=== PATIENT | female | born 1940 | race Caucasian/White ===

== ENCOUNTER 2017-07-11 02:01 | Inpatient (IN) | payer MEDICARE, OTHER ==
[~2017-07-11] VITALS: Ht 160 cm; Wt 77.3 kg
[~2017-07-11 02:01] MED LIST: ASPI81TA52 PO; LEVO150T PO; METO25TA6 PO; PRED5TAB PO
[2017-07-11 02:56] LABS: INR 0.9 INR; PARTIAL THROMBOPLASTIN TIME 24 SECONDS (22-32); PROTHROMBIN TIME 9.8 SECONDS (9.0-12.0)
[2017-07-11 03:02] LABS: BASOPHILS % (AUTO) 0.6 % (0-1); EOSINOPHILS # (AUTO) 0.1 X10'3 (0-0.9); EOSINOPHILS % (AUTO) 1.5 % (0-6); HEMATOCRIT 28.5 % (35.0-45.0); HEMOGLOBIN 9.5 g/dl (12.0-16.0); LYMPHOCYTES # (AUTO) 1.7 X10'3 (1.1-4.8); LYMPHOCYTES % (AUTO) 25.9 % (21-51); MEAN CORPUSCULAR HEMOGLOBIN 31.6 PG (27.0-31.0); MEAN CORPUSCULAR HGB CONC 33.5 % (33.0-36.5); MEAN CORPUSCULAR VOLUME 94.3 FL (78-98); MEAN PLATELET VOLUME 7.1 FL (7.4-10.4); MONOCYTES # (AUTO) 0.5 X10'3 (0-0.9); NEUTROPHILS # (AUTO) 4.2 X10'3 (1.8-7.7); PLATELET COUNT 247 X10'3 (140-440); RED BLOOD COUNT 3.02 X10'6 (4.20-5.60); RED CELL DISTRIBUTION WIDTH 15.4 % (11.5-14.5); WHITE BLOOD COUNT 6.5 X10'3 (4.5-11.0)
[2017-07-11 03:04] LABS: ALANINE AMINOTRANSFERASE 21 U/L (12-78); ALBUMIN 3.5 G/DL (3.4-5.0); ALBUMIN/GLOBULIN RATIO 0.9 (1.1-1.5); ALKALINE PHOSPHATASE 95 IU/L (46-116); ANION GAP 13 (8-16); ASPARTATE AMINO TRANSFERASE 21 U/L (10-37); BILIRUBIN,TOTAL 0.2 MG/DL (0.1-1.0); BLOOD UREA NITROGEN 61 MG/DL (7-18); BUN/CREATININE RATIO 21.6 (6.6-38.0); CALCIUM 9.4 MG/DL (8.5-10.1); CHLORIDE 103 MMOL/L (99-107); CREATININE 2.82 MG/DL (0.40-0.90); GLUCOSE 106 MG/DL (70-104); POTASSIUM 5.3 MMOL/L (3.5-5.1); SODIUM 135 MMOL/L (135-145); TOTAL CARBON DIOXIDE 18.9 MMOL/L (24-32); TOTAL PROTEIN 7.5 G/DL (6.4-8.2); eGFR 16 ML/MIN
[2017-07-11] MEDS ORDERED: insulin regular, human 10 units/0.1 ml syringe IV ONE (03:20)
[2017-07-11] MEDS ORDERED: dextrose 50%-water 50ml dispensing syringe IV ONE (03:20)
[2017-07-11] MEDS ORDERED: sodium polystyrene sulfonate 15gm/60ml oral suspension PO ONE (03:20)
[2017-07-11] MEDS ORDERED: aspirin 81mg tab.chew PO ONE (10:10)
[2017-07-11] MEDS ORDERED: nitroGLYCERIN 0.4mg SUBLingual tab SL PRN ×3 (10:10→17:20)
[2017-07-11] MEDS ORDERED: heparin 10,000 units/1 ML INJ IV PRN (10:55)
[2017-07-11] MEDS ORDERED: ondansetron/PF 4mg/2ml inj IV PRN (10:55)
[2017-07-11] MEDS ORDERED: heparin 10,000 units/1 ML INJ IV ONE (10:55)
[2017-07-11] MEDS ORDERED: mag hydrox/Alum hydrox/simeth 30ml oral suspension PO PRN (10:55)
[2017-07-11] MEDS ORDERED: HYDROcodone/acetaminophen 10/325mg tab PO PRN (10:55)
[2017-07-11] MEDS ORDERED: magnesium hydroxide 30ml (MOM) UD suspension PO PRN (10:55)
[2017-07-11] MEDS ORDERED: acetaminophen 325mg tablet PO PRN ×2 (10:55)
[2017-07-11] MEDS ORDERED: HYDROcodone/acetaminophen 5mg/325mg tablet PO PRN (10:55)
[2017-07-11] MEDS: normal saline 1000ml 1,000 ML IV SCH ×2 (12:01→21:12)
[2017-07-11 13:11] LABS: CHOL/HDL RATIO 3.3 (0.00-4.99); CHOLESTEROL 269 MG/DL (0-200); HDL CHOLESTEROL 81 MG/DL (35-60); LDL CHOLESTEROL 147 MG/DL (50-100); TRIGLYCERIDES 168 MG/DL (20-135)
[2017-07-11] MEDS: atorvastatin 20mg tablet PO SCH (14:06)
[2017-07-11] MEDS: isosorbide mononitrate 30mg tab.SR.24H PO SCH (14:20)
[2017-07-11] MEDS ORDERED: ATOR-2 PO (14:55)
[2017-07-11] MEDS ORDERED: metoprolol tartrate 1mg/ml inj IV PRN (17:20)
[2017-07-11] MEDS ORDERED: regadenoson 0.4mg/5ml syringe IV ONE (17:20)
[2017-07-11] MEDS ORDERED: aminophylline 250mg/10ml inj. IV PRN (17:20)
[2017-07-11] MEDS ORDERED: acetaminophen 325mg tablet PO ONE (17:20)
[2017-07-11] MEDS ORDERED: regadenoson 0.4mg/5ml syringe IV PRN (17:25)
[2017-07-11 18:55] LABS: PARTIAL THROMBOPLASTIN TIME 53 SECONDS (22-32)
[2017-07-11] MEDS ORDERED: temazepam 15mg capsule PO PRN (21:00)
[2017-07-11] MEDS: metoprolol tartrate 25mg tablet PO SCH (21:11)
[2017-07-11] MEDS ORDERED: zolpidem 5mg tablet PO ONE (22:10)
[2017-07-12 03:53] VITALS: BP 145/74
[2017-07-12 06:00] VITALS: BP 129/62
[2017-07-12] MEDS ORDERED: regadenoson 0.4mg/5ml syringe IV PRN (07:00)
[2017-07-12] MEDS: aspirin 81mg tablet.DR PO SCH (07:50)
[2017-07-12] MEDS: isosorbide mononitrate 30mg tab.SR.24H PO SCH (07:50)
[2017-07-12] MEDS: levoTHYROXINE 75mcg tablet PO SCH (07:50)
[2017-07-12] MEDS: predniSONE 5mg tablet PO SCH (07:50)
[2017-07-12] MEDS: metoprolol tartrate 25mg tablet PO SCH ×2 (07:50→20:36)
[2017-07-12] MEDS: normal saline 1000ml 1,000 ML IV SCH ×3 (07:51→20:31)
[2017-07-12] MEDS: atorvastatin 20mg tablet PO SCH (08:00)
[2017-07-12] MEDS ORDERED: aspirin 81mg tablet.DR PO SCH (08:00)
[2017-07-12] MEDS ORDERED: atorvastatin 20mg tablet PO SCH (08:28)
[2017-07-12 09:09] LABS: BASOPHILS % (AUTO) 0.6 % (0-1); EOSINOPHILS # (AUTO) 0.3 X10'3 (0-0.9); EOSINOPHILS % (AUTO) 5.9 % (0-6); HEMATOCRIT 22.7 % (35.0-45.0); HEMOGLOBIN 7.7 g/dl (12.0-16.0); LYMPHOCYTES # (AUTO) 1.1 X10'3 (1.1-4.8); LYMPHOCYTES % (AUTO) 19.6 % (21-51); MEAN CORPUSCULAR HEMOGLOBIN 31.6 PG (27.0-31.0); MEAN CORPUSCULAR HGB CONC 33.7 % (33.0-36.5); MEAN CORPUSCULAR VOLUME 93.7 FL (78-98); MEAN PLATELET VOLUME 6.7 FL (7.4-10.4); MONOCYTES # (AUTO) 0.5 X10'3 (0-0.9); MONOCYTES % (AUTO) 8.6 % (2-12); NEUTROPHILS # (AUTO) 3.5 X10'3 (1.8-7.7); NEUTROPHILS % (AUTO) 65.3 % (42-75); PLATELET COUNT 202 X10'3 (140-440); RED BLOOD COUNT 2.43 X10'6 (4.20-5.60); RED CELL DISTRIBUTION WIDTH 15.6 % (11.5-14.5); WHITE BLOOD COUNT 5.4 X10'3 (4.5-11.0)
[2017-07-12 09:29] LABS: ALBUMIN 2.6 G/DL (3.4-5.0); ANION GAP 10 (8-16); BLOOD UREA NITROGEN 51 MG/DL (7-18); BUN/CREATININE RATIO 18.4 (6.6-38.0); CALCIUM 8.1 MG/DL (8.5-10.1); CHLORIDE 110 MMOL/L (99-107); CREATININE 2.77 MG/DL (0.40-0.90); GLUCOSE 117 MG/DL (70-104); POTASSIUM 4.5 MMOL/L (3.5-5.1); SODIUM 139 MMOL/L (135-145); TOTAL CARBON DIOXIDE 19.2 MMOL/L (24-32); TROPONIN I 0.13 NG/ML (0.0-0.05); eGFR 17 ML/MIN
[2017-07-12 11:00] VITALS: BP 136/77
[2017-07-12 15:00] VITALS: BP 153/78
[2017-07-12 18:00] VITALS: BP 175/89
[2017-07-12 22:00] VITALS: BP 165/83
[2017-07-12 22:04] LABS: OCCULT BLOOD STOOL NEGATIVE (Neg)
[2017-07-13] MEDS ORDERED: zolpidem 5mg tablet PO PRN (01:40)
[2017-07-13 06:00] VITALS: BP 158/79
[2017-07-13 06:39] LABS: BASOPHILS % (AUTO) 0.4 % (0-1); EOSINOPHILS # (AUTO) 0.2 X10'3 (0-0.9); EOSINOPHILS % (AUTO) 3.7 % (0-6); HEMATOCRIT 23.2 % (35.0-45.0); HEMOGLOBIN 7.9 g/dl (12.0-16.0); LYMPHOCYTES # (AUTO) 1.2 X10'3 (1.1-4.8); LYMPHOCYTES % (AUTO) 22.1 % (21-51); MEAN CORPUSCULAR HEMOGLOBIN 32.3 PG (27.0-31.0); MEAN CORPUSCULAR VOLUME 95.1 FL (78-98); MONOCYTES # (AUTO) 0.7 X10'3 (0-0.9); MONOCYTES % (AUTO) 11.6 % (2-12); NEUTROPHILS # (AUTO) 3.5 X10'3 (1.8-7.7); NEUTROPHILS % (AUTO) 62.2 % (42-75); PLATELET COUNT 193 X10'3 (140-440); RED BLOOD COUNT 2.44 X10'6 (4.20-5.60); RED CELL DISTRIBUTION WIDTH 15.3 % (11.5-14.5); WHITE BLOOD COUNT 5.6 X10'3 (4.5-11.0)
[2017-07-13 06:51] LABS: ALBUMIN 2.6 G/DL (3.4-5.0); ANION GAP 9 (8-16); BLOOD UREA NITROGEN 48 MG/DL (7-18); BUN/CREATININE RATIO 19.2 (6.6-38.0); CALCIUM 8.5 MG/DL (8.5-10.1); CHLORIDE 112 MMOL/L (99-107); GLUCOSE 77 MG/DL (70-104); POTASSIUM 4.8 MMOL/L (3.5-5.1); SODIUM 140 MMOL/L (135-145); TOTAL CARBON DIOXIDE 18.8 MMOL/L (24-32); eGFR 19 ML/MIN
[2017-07-13] MEDS: aspirin 81mg tablet.DR PO SCH (08:41)
[2017-07-13] MEDS: isosorbide mononitrate 30mg tab.SR.24H PO SCH (08:42)
[2017-07-13] MEDS: metoprolol tartrate 25mg tablet PO SCH (08:42)
[2017-07-13] MEDS: predniSONE 5mg tablet PO SCH (08:42)
[2017-07-13] MEDS: levoTHYROXINE 75mcg tablet PO SCH (08:49)
[2017-07-13 11:00] VITALS: BP 130/74
[2017-07-13] MEDS: normal saline 1000ml 1,000 ML IV SCH (13:32)
== END 2017-07-13 15:41 | disposition home or self-care (01) | DRG 303 ==
LOC: ER 02:02 → ED HOLD 10:55 → EDBEDREQ 07-12 02:37 → PCU 3S 07-12 03:10
PROVIDERS: ADMIT Hospitalist; ATTEND Family Medicine
DX: I25.119 Atherosclerotic heart disease of native coronary artery with unspecified angina pectoris (principal); N17.9 Acute kidney failure, unspecified; M32.9 Systemic lupus erythematosus, unspecified; D64.9 Anemia, unspecified; E03.9 Hypothyroidism, unspecified; N18.9 Chronic kidney disease, unspecified; E78.5 Hyperlipidemia, unspecified; I12.9 Hypertensive chronic kidney disease with stage 1 through stage 4 chronic kidney disease, or unspecified chronic kidney disease; I71.4 Abdominal aortic aneurysm, without rupture; I25.2 Old myocardial infarction; Z90.5 Acquired absence of kidney; Z90.710 Acquired absence of both cervix and uterus; Z95.5 Presence of coronary angioplasty implant and graft; Z98.41 Cataract extraction status, right eye; Z98.42 Cataract extraction status, left eye; Z88.0 Allergy status to penicillin; Z88.2 Allergy status to sulfonamides; Z88.5 Allergy status to narcotic agent; Z91.041 Radiographic dye allergy status; Z88.8 Allergy status to other drugs, medicaments and biological substances; Z79.82 Long term (current) use of aspirin; Z79.899 Other long term (current) drug therapy; Z85.51 Personal history of malignant neoplasm of bladder; Z86.79 Personal history of other diseases of the circulatory system; Z87.891 Personal history of nicotine dependence; Z80.8 Family history of malignant neoplasm of other organs or systems; Z82.49 Family history of ischemic heart disease and other diseases of the circulatory system
CPT/HCPCS: 36415; 71045; 74176; 80048; 80053; 80061; 82272; 84484; 85025; 85610; 85730; 87070; 93005; 93306; 96361; 96374; 99285; A4357; A6212; J0280; J1644; J1815; J2785; J7030; J7512

== ENCOUNTER 2017-10-31 19:02 | Inpatient (IN) | payer MEDICARE, OTHER ==
[~2017-10-31] VITALS: Ht 160 cm; Wt 77.3 kg
[~2017-10-31 19:02] MED LIST changes: -ASPI81TA52 PO; +ATOR-2 PO; -PRED5TAB PO
[2017-10-31] MEDS ORDERED: aspirin 81mg tab.chew PO ONE (19:35)
[2017-10-31 19:52] LABS: BASOPHILS % (AUTO) 0.4 % (0-1); EOSINOPHILS % (AUTO) 0.4 % (0-6); HEMATOCRIT 27.8 % (35.0-45.0); HEMOGLOBIN 9.6 g/dl (12.0-16.0); LYMPHOCYTES # (AUTO) 0.9 X10'3 (1.1-4.8); MEAN CORPUSCULAR HEMOGLOBIN 32.2 PG (27.0-31.0); MEAN CORPUSCULAR HGB CONC 34.5 % (33.0-36.5); MEAN CORPUSCULAR VOLUME 93.4 FL (78-98); MEAN PLATELET VOLUME 6.7 FL (7.4-10.4); MONOCYTES # (AUTO) 0.4 X10'3 (0-0.9); MONOCYTES % (AUTO) 4.5 % (2-12); NEUTROPHILS % (AUTO) 83.7 % (42-75); PLATELET COUNT 216 X10'3 (140-440); RED BLOOD COUNT 2.98 X10'6 (4.20-5.60); WHITE BLOOD COUNT 8.4 X10'3 (4.5-11.0)
[2017-10-31 20:02] LABS: PARTIAL THROMBOPLASTIN TIME 23 SECONDS (22-32); PROTHROMBIN TIME 9.9 SECONDS (9.0-12.0)
[2017-10-31 20:10] LABS: ALANINE AMINOTRANSFERASE 26 U/L (12-78); ALBUMIN 3.3 G/DL (3.4-5.0); ALBUMIN/GLOBULIN RATIO 0.8 (1.1-1.5); ALKALINE PHOSPHATASE 80 IU/L (46-116); ANION GAP 13 (8-16); ASPARTATE AMINO TRANSFERASE 13 U/L (10-37); BILIRUBIN,TOTAL 0.3 MG/DL (0.1-1.0); BLOOD UREA NITROGEN 56 MG/DL (7-18); BUN/CREATININE RATIO 21.1 (6.6-38.0); CALCIUM 9.2 MG/DL (8.5-10.1); CHLORIDE 103 MMOL/L (99-107); CREATININE 2.66 MG/DL (0.40-0.90); GLUCOSE 129 MG/DL (70-104); POTASSIUM 5.2 MMOL/L (3.5-5.1); SODIUM 134 MMOL/L (135-145); TOTAL CARBON DIOXIDE 18.1 MMOL/L (24-32); TOTAL PROTEIN 7.2 G/DL (6.4-8.2); eGFR 17 ML/MIN
[2017-10-31] MEDS ORDERED: ondansetron/PF 4mg/2ml inj IV PRN (21:40)
[2017-10-31] MEDS ORDERED: mag hydrox/Alum hydrox/simeth 30ml oral suspension PO PRN (21:40)
[2017-10-31] MEDS ORDERED: magnesium hydroxide 30ml (MOM) UD suspension PO PRN (21:40)
[2017-10-31] MEDS ORDERED: PRED5TAB PO (21:54)
[2017-10-31] MEDS ORDERED: CALC-1197 PO (21:54)
[2017-10-31] MEDS ORDERED: IRON18TA PO (21:54)
[2017-10-31] MEDS ORDERED: ATOR80TA PO (21:54)
[2017-10-31] MEDS ORDERED: ASPI-1071 PO (21:54)
[2017-10-31] MEDS ORDERED: predniSONE 5mg tablet PO SCH (22:00)
[2017-10-31 23:45] VITALS: BP 179/91
[2017-11-01] MEDS ORDERED: ranolazine 500mg SR tablet (Q12H) PO ONE
[2017-11-01] MEDS ORDERED: metoprolol succinate 25mg (24-HOUR) SR. Tablet PO ONE
[2017-11-01 02:11] LABS: BASOPHILS % (AUTO) 0.3 % (0-1); EOSINOPHILS # (AUTO) 0.2 X10'3 (0-0.9); EOSINOPHILS % (AUTO) 2.4 % (0-6); HEMATOCRIT 24.5 % (35.0-45.0); HEMOGLOBIN 8.4 g/dl (12.0-16.0); LYMPHOCYTES # (AUTO) 1.4 X10'3 (1.1-4.8); LYMPHOCYTES % (AUTO) 18.8 % (21-51); MEAN CORPUSCULAR HEMOGLOBIN 32.5 PG (27.0-31.0); MEAN CORPUSCULAR HGB CONC 34.1 % (33.0-36.5); MEAN CORPUSCULAR VOLUME 95.3 FL (78-98); MEAN PLATELET VOLUME 6.9 FL (7.4-10.4); MONOCYTES # (AUTO) 0.6 X10'3 (0-0.9); MONOCYTES % (AUTO) 8.5 % (2-12); NEUTROPHILS # (AUTO) 5.1 X10'3 (1.8-7.7); PLATELET COUNT 205 X10'3 (140-440); RED BLOOD COUNT 2.57 X10'6 (4.20-5.60); RED CELL DISTRIBUTION WIDTH 13.8 % (11.5-14.5); WHITE BLOOD COUNT 7.3 X10'3 (4.5-11.0)
[2017-11-01 02:13] LABS: ALANINE AMINOTRANSFERASE 18 U/L (12-78); ALBUMIN 2.8 G/DL (3.4-5.0); ALBUMIN/GLOBULIN RATIO 0.8 (1.1-1.5); ALKALINE PHOSPHATASE 69 IU/L (46-116); ANION GAP 12 (8-16); ASPARTATE AMINO TRANSFERASE 15 U/L (10-37); BILIRUBIN,TOTAL 0.2 MG/DL (0.1-1.0); BLOOD UREA NITROGEN 60 MG/DL (7-18); BUN/CREATININE RATIO 23.2 (6.6-38.0); CALCIUM 8.3 MG/DL (8.5-10.1); CHLORIDE 105 MMOL/L (99-107); CREATININE 2.59 MG/DL (0.40-0.90); GLUCOSE 90 MG/DL (70-104); POTASSIUM 4.8 MMOL/L (3.5-5.1); SODIUM 134 MMOL/L (135-145); TOTAL CARBON DIOXIDE 17.3 MMOL/L (24-32); TOTAL PROTEIN 6.3 G/DL (6.4-8.2); eGFR 18 ML/MIN
[2017-11-01 02:28] VITALS: BP 142/78
[2017-11-01 07:00] VITALS: BP 158/81
[2017-11-01] MEDS: heparin, porcine 5000 units/ml vial SQ SCH ×2 (07:36→19:42)
[2017-11-01] MEDS: ranolazine 500mg SR tablet (Q12H) PO SCH ×2 (07:36→19:42)
[2017-11-01] MEDS: ferrous sulfate 325mg tablet PO SCH (07:37)
[2017-11-01] MEDS: atorvastatin 20mg tablet PO SCH (07:38)
[2017-11-01] MEDS: aspirin 81mg tablet.DR PO SCH (07:38)
[2017-11-01] MEDS: predniSONE 5mg tablet PO SCH (07:39)
[2017-11-01] MEDS: levoTHYROXINE 75mcg tablet PO SCH (07:40)
[2017-11-01] MEDS ORDERED: non-formulary drug (Calcium Carbonate/Vitamin D3 (Calcium + D 600 Mg Tablet) 1 EACH) PO SCH (08:00)
[2017-11-01] MEDS ORDERED: metoprolol tartrate 25mg tablet PO SCH ×2 (08:00→20:00)
[2017-11-01] MEDS ORDERED: metoprolol tartrate 12.5mg (1/2 tablet) PO ONE (09:15)
[2017-11-01] MEDS: isosorbide mononitrate 30mg tab.SR.24H PO SCH (10:04)
[2017-11-01 11:00] VITALS: BP 109/55
[2017-11-01] MEDS: normal saline 1000ml 1,000 ML IV SCH (11:53)
[2017-11-01 15:00] VITALS: BP 111/58
[2017-11-01 18:00] VITALS: BP 128/61
[2017-11-01] MEDS: acetaminophen 325mg tablet PO PRN (19:49)
[2017-11-01 22:00] VITALS: BP 106/49
[2017-11-02] MEDS: normal saline 1000ml 1,000 ML IV SCH ×2 (01:55→15:39)
[2017-11-02 02:00] VITALS: BP 122/65
[2017-11-02 02:19] LABS: ALANINE AMINOTRANSFERASE 21 U/L (12-78); ALBUMIN 2.6 G/DL (3.4-5.0); ALBUMIN/GLOBULIN RATIO 0.8 (1.1-1.5); ALKALINE PHOSPHATASE 68 IU/L (46-116); ANION GAP 12 (8-16); ASPARTATE AMINO TRANSFERASE 14 U/L (10-37); BILIRUBIN,TOTAL 0.2 MG/DL (0.1-1.0); BLOOD UREA NITROGEN 64 MG/DL (7-18); BUN/CREATININE RATIO 20.4 (6.6-38.0); CALCIUM 8.5 MG/DL (8.5-10.1); CHLORIDE 106 MMOL/L (99-107); CREATININE 3.13 MG/DL (0.40-0.90); GLUCOSE 97 MG/DL (70-104); POTASSIUM 5.6 MMOL/L (3.5-5.1); SODIUM 135 MMOL/L (135-145); TOTAL CARBON DIOXIDE 16.8 MMOL/L (24-32); TOTAL PROTEIN 5.8 G/DL (6.4-8.2); eGFR 14 ML/MIN
[2017-11-02 02:21] LABS: TROPONIN I 0.75 NG/ML (0.0-0.05)
[2017-11-02] MEDS: acetaminophen 325mg tablet PO PRN ×4 (02:26→21:57)
[2017-11-02 06:00] VITALS: BP 162/76
[2017-11-02] MEDS ORDERED: nitroGLYCERIN 0.4mg SUBLingual tab SL ONE (06:59)
[2017-11-02] MEDS: levoTHYROXINE 75mcg tablet PO SCH (07:37)
[2017-11-02] MEDS: aspirin 81mg tablet.DR PO SCH (07:37)
[2017-11-02] MEDS: ferrous sulfate 325mg tablet PO SCH (07:37)
[2017-11-02] MEDS: ranolazine 500mg SR tablet (Q12H) PO SCH ×2 (07:37→20:04)
[2017-11-02] MEDS: metoprolol tartrate 12.5mg (1/2 tablet) PO SCH ×2 (07:37→20:04)
[2017-11-02] MEDS: isosorbide mononitrate 30mg tab.SR.24H PO SCH (07:38)
[2017-11-02] MEDS: predniSONE 5mg tablet PO SCH (07:38)
[2017-11-02] MEDS: atorvastatin 20mg tablet PO SCH (07:38)
[2017-11-02] MEDS: heparin, porcine 5000 units/ml vial SQ SCH ×2 (07:39→20:04)
[2017-11-02] MEDS ORDERED: sodium bicarbonate (8.4%) 1 mEq/ml syringe IV ONE (09:25)
[2017-11-02] MEDS ORDERED: sodium polystyrene sulfonate 15gm/60ml oral suspension PO ONE (09:25)
[2017-11-02] MEDS ORDERED: SODIUM BICARBONATE IV ONE (09:35)
[2017-11-02] MEDS ORDERED: DEXTROSE 5% IV ONE (09:35)
[2017-11-02] MEDS ORDERED: WATER IV ONE (09:35)
[2017-11-02 11:00] VITALS: BP 114/57
[2017-11-02 15:00] VITALS: BP 117/58
[2017-11-02 18:00] VITALS: BP 159/73
[2017-11-02 22:00] VITALS: BP 135/59
[2017-11-03] VITALS (14 sets, daily range): BP systolic 149–178; BP diastolic 75–95
[2017-11-03] MEDS: nitroGLYCERIN 0.4mg SUBLingual tab SL PRN ×4 (00:26→02:17)
[2017-11-03] MEDS: normal saline 1000ml 1,000 ML IV SCH (02:01)
[2017-11-03] MEDS ORDERED: nitroGLYCERIN 0.4mg/hour patch TD SCH (03:00)
[2017-11-03 07:10] LABS: ALANINE AMINOTRANSFERASE 20 U/L (12-78); ALBUMIN 2.7 G/DL (3.4-5.0); ALBUMIN/GLOBULIN RATIO 0.8 (1.1-1.5); ALKALINE PHOSPHATASE 59 IU/L (46-116); ANION GAP 11 (8-16); ASPARTATE AMINO TRANSFERASE 13 U/L (10-37); BILIRUBIN,TOTAL 0.3 MG/DL (0.1-1.0); BLOOD UREA NITROGEN 52 MG/DL (7-18); BUN/CREATININE RATIO 16.9 (6.6-38.0); CALCIUM 8.4 MG/DL (8.5-10.1); CHLORIDE 110 MMOL/L (99-107); CREATININE 3.07 MG/DL (0.40-0.90); GLUCOSE 76 MG/DL (70-104); POTASSIUM 5.3 MMOL/L (3.5-5.1); SODIUM 138 MMOL/L (135-145); TOTAL CARBON DIOXIDE 17.2 MMOL/L (24-32); TOTAL PROTEIN 5.9 G/DL (6.4-8.2); eGFR 15 ML/MIN
[2017-11-03] MEDS: ranolazine 500mg SR tablet (Q12H) PO SCH ×2 (07:36→19:16)
[2017-11-03] MEDS: predniSONE 5mg tablet PO SCH (07:36)
[2017-11-03] MEDS: aspirin 81mg tablet.DR PO SCH (07:36)
[2017-11-03] MEDS: isosorbide mononitrate 30mg tab.SR.24H PO SCH (07:36)
[2017-11-03] MEDS: atorvastatin 20mg tablet PO SCH (07:37)
[2017-11-03] MEDS: ferrous sulfate 325mg tablet PO SCH (07:37)
[2017-11-03] MEDS: metoprolol tartrate 12.5mg (1/2 tablet) PO SCH (07:37)
[2017-11-03] MEDS: heparin, porcine 5000 units/ml vial SQ SCH (07:38)
[2017-11-03] MEDS: acetaminophen 325mg tablet PO PRN ×3 (07:44→22:36)
[2017-11-03] MEDS ORDERED: sodium bicarbonate (8.4%) 1 mEq/ml syringe IV STA (07:58)
[2017-11-03] MEDS ORDERED: sodium polystyrene sulfonate 15gm/60ml oral suspension PO ONE (08:00)
[2017-11-03] MEDS ORDERED: WATER IV ONE (08:10)
[2017-11-03] MEDS ORDERED: SODIUM BICARBONATE IV ONE (08:10)
[2017-11-03] MEDS ORDERED: DEXTROSE 5% IV ONE (08:10)
[2017-11-03 09:27] LABS: BASOPHILS # (AUTO) 0.1 X10'3 (0-0.2); BASOPHILS % (AUTO) 1.5 % (0-1); EOSINOPHILS # (AUTO) 0.2 X10'3 (0-0.9); EOSINOPHILS % (AUTO) 3.4 % (0-6); HEMATOCRIT 23.8 % (35.0-45.0); LYMPHOCYTES # (AUTO) 1.5 X10'3 (1.1-4.8); LYMPHOCYTES % (AUTO) 21.1 % (21-51); MEAN CORPUSCULAR HEMOGLOBIN 32.8 PG (27.0-31.0); MEAN CORPUSCULAR HGB CONC 33.8 % (33.0-36.5); MEAN PLATELET VOLUME 7.3 FL (7.4-10.4); MONOCYTES # (AUTO) 0.6 X10'3 (0-0.9); NEUTROPHILS # (AUTO) 4.6 X10'3 (1.8-7.7); PLATELET COUNT 189 X10'3 (140-440); RED BLOOD COUNT 2.45 X10'6 (4.20-5.60); RED CELL DISTRIBUTION WIDTH 13.9 % (11.5-14.5)
[2017-11-03] MEDS ORDERED: acetaminophen 325mg tablet PO ONE (10:15)
[2017-11-03] MEDS ORDERED: diphenhydrAMINE 25mg capsule PO ONE (10:15)
[2017-11-03] MEDS ORDERED: epoetin 20,000 units/ml inj SQ ONE (11:10)
[2017-11-03] MEDS: amLODIPine 5mg tablet PO SCH (12:10)
[2017-11-03] MEDS: pantoprazole 40mg Tablet.DR PO SCH (12:10)
[2017-11-03] MEDS ORDERED: furosemide 40mg/4ml inj IV ONE (12:15)
[2017-11-03 12:20] LABS: CLARITY,URINE TURBID (Clear); COLOR,URINE STRAW (Yellow); GLUCOSE, URINE NEGATIVE (Neg); KETONES,URINE NEGATIVE (Neg); LEUKOCYTE ESTERASE ,URINE LARGE (Neg); NITRITES, URINE POSITIVE (Neg); OCCULT BLOOD,URINE MODERATE (Neg); PROTEIN,URINE 30 mg/dl (Neg); UA COLLECTION TYPE OTHER; UROBILINOGEN,URINE 0.2 E.U/dL (0.2-1.0)
[2017-11-03 12:29] LABS: BACTERIA,URINE 3+ /HPF (Neg); MUCUS STRANDS NONE SEEN /LPF (Neg); SQUAMOUS EPITHELIAL CELL,UR NONE SEEN /LPF (FEW); WBC CLUMPS,URINE MANY /HPF (NEGATIVE); WBC,URINE TNTC /HPF (0-4)
[2017-11-03 12:44] LABS: TOTAL PROTEIN,URINE RANDOM 46.9 MG/DL
[2017-11-03] MEDS: CefTRIAXone/D5W-Rocephin 1gm 50 ML IV SCH (18:53)
[2017-11-03] MEDS: nitroGLYCERIN 0.4mg/hour patch TD SCH (18:54)
[2017-11-03] MEDS: sodium bicarbonate (8.4%) inj. 100 MEQ in dextrose 5%-water 1,000 ML IV SCH (19:03)
[2017-11-03] MEDS: metoprolol tartrate 50mg tablet PO SCH (19:17)
[2017-11-04 03:00] VITALS: BP 159/85
[2017-11-04] MEDS: acetaminophen 325mg tablet PO PRN (03:42)
[2017-11-04] MEDS: sodium bicarbonate (8.4%) inj. 100 MEQ in dextrose 5%-water 1,000 ML IV SCH (04:15)
[2017-11-04 05:32] LABS: BASOPHILS % (AUTO) 0.7 % (0-1); EOSINOPHILS # (AUTO) 0.2 X10'3 (0-0.9); EOSINOPHILS % (AUTO) 3.4 % (0-6); HEMATOCRIT 29.3 % (35.0-45.0); LYMPHOCYTES # (AUTO) 1.4 X10'3 (1.1-4.8); LYMPHOCYTES % (AUTO) 21.9 % (21-51); MEAN CORPUSCULAR HEMOGLOBIN 31.5 PG (27.0-31.0); MEAN CORPUSCULAR HGB CONC 34.2 % (33.0-36.5); MEAN CORPUSCULAR VOLUME 92.2 FL (78-98); MONOCYTES # (AUTO) 0.6 X10'3 (0-0.9); MONOCYTES % (AUTO) 10.1 % (2-12); NEUTROPHILS # (AUTO) 4.1 X10'3 (1.8-7.7); NEUTROPHILS % (AUTO) 63.9 % (42-75); PLATELET COUNT 181 X10'3 (140-440); RED BLOOD COUNT 3.18 X10'6 (4.20-5.60); RED CELL DISTRIBUTION WIDTH 15.7 % (11.5-14.5); WHITE BLOOD COUNT 6.4 X10'3 (4.5-11.0)
[2017-11-04 06:00] VITALS: BP 142/85
[2017-11-04 06:10] LABS: ALANINE AMINOTRANSFERASE 20 U/L (12-78); ALBUMIN 2.7 G/DL (3.4-5.0); ALBUMIN/GLOBULIN RATIO 0.8 (1.1-1.5); ALKALINE PHOSPHATASE 61 IU/L (46-116); ANION GAP 10 (8-16); ASPARTATE AMINO TRANSFERASE 21 U/L (10-37); BILIRUBIN,TOTAL 0.3 MG/DL (0.1-1.0); BLOOD UREA NITROGEN 48 MG/DL (7-18); BUN/CREATININE RATIO 16.3 (6.6-38.0); CALCIUM 8.1 MG/DL (8.5-10.1); CHLORIDE 104 MMOL/L (99-107); CREATININE 2.95 MG/DL (0.40-0.90); GLUCOSE 93 MG/DL (70-104); POTASSIUM 4.4 MMOL/L (3.5-5.1); SODIUM 139 MMOL/L (135-145); TOTAL CARBON DIOXIDE 25.1 MMOL/L (24-32); TOTAL PROTEIN 6.1 G/DL (6.4-8.2); eGFR 15 ML/MIN
[2017-11-04] MEDS: ferrous sulfate 325mg tablet PO SCH (07:47)
[2017-11-04] MEDS: pantoprazole 40mg Tablet.DR PO SCH (07:47)
[2017-11-04] MEDS: aspirin 81mg tablet.DR PO SCH (07:47)
[2017-11-04] MEDS: amLODIPine 5mg tablet PO SCH ×2 (07:48→19:12)
[2017-11-04] MEDS: atorvastatin 20mg tablet PO SCH (07:48)
[2017-11-04] MEDS: ranolazine 500mg SR tablet (Q12H) PO SCH ×2 (07:48→19:11)
[2017-11-04] MEDS: predniSONE 5mg tablet PO SCH (07:48)
[2017-11-04] MEDS: metoprolol tartrate 50mg tablet PO SCH ×2 (07:48→19:11)
[2017-11-04] MEDS: nitroGLYCERIN 0.4mg/hour patch TD SCH (08:00)
[2017-11-04] MEDS: CefTRIAXone/D5W-Rocephin 1gm 50 ML IV SCH (08:52)
[2017-11-04 11:00] VITALS: BP 140/77
[2017-11-04] MEDS: normal saline 1000ml 1,000 ML IV SCH (14:58)
[2017-11-04 15:00] VITALS: BP 144/75
[2017-11-04] MEDS ORDERED: nitroGLYCERIN 0.4mg/hour patch TD SCH (18:26)
[2017-11-04 19:00] VITALS: BP 170/85
[2017-11-04] MEDS: lactobacillus rhamnosus 10,000 MMU CELLS/CAPSULE PO SCH (19:11)
[2017-11-04 23:00] VITALS: BP 154/87
[2017-11-05] MEDS: normal saline 1000ml 1,000 ML IV SCH (02:24)
[2017-11-05] MEDS: acetaminophen 325mg tablet PO PRN (02:28)
[2017-11-05 03:00] VITALS: BP 139/78
[2017-11-05 06:02] LABS: BASOPHILS # (AUTO) 0.1 X10'3 (0-0.2); BASOPHILS % (AUTO) 1.6 % (0-1); EOSINOPHILS # (AUTO) 0.2 X10'3 (0-0.9); EOSINOPHILS % (AUTO) 2.8 % (0-6); HEMATOCRIT 30.5 % (35.0-45.0); HEMOGLOBIN 10.5 g/dl (12.0-16.0); LYMPHOCYTES # (AUTO) 1.2 X10'3 (1.1-4.8); LYMPHOCYTES % (AUTO) 16.2 % (21-51); MEAN CORPUSCULAR HEMOGLOBIN 31.9 PG (27.0-31.0); MEAN CORPUSCULAR HGB CONC 34.5 % (33.0-36.5); MEAN CORPUSCULAR VOLUME 92.4 FL (78-98); MONOCYTES # (AUTO) 0.6 X10'3 (0-0.9); MONOCYTES % (AUTO) 8.8 % (2-12); NEUTROPHILS % (AUTO) 70.6 % (42-75); PLATELET COUNT 184 X10'3 (140-440); RED CELL DISTRIBUTION WIDTH 15.6 % (11.5-14.5); WHITE BLOOD COUNT 7.1 X10'3 (4.5-11.0)
[2017-11-05 06:16] LABS: ALANINE AMINOTRANSFERASE 25 U/L (12-78); ALBUMIN 2.7 G/DL (3.4-5.0); ALBUMIN/GLOBULIN RATIO 0.8 (1.1-1.5); ALKALINE PHOSPHATASE 67 IU/L (46-116); ANION GAP 10 (8-16); ASPARTATE AMINO TRANSFERASE 18 U/L (10-37); BILIRUBIN,TOTAL 0.3 MG/DL (0.1-1.0); BLOOD UREA NITROGEN 43 MG/DL (7-18); BUN/CREATININE RATIO 14.4 (6.6-38.0); CALCIUM 8.4 MG/DL (8.5-10.1); CHLORIDE 103 MMOL/L (99-107); CREATININE 2.98 MG/DL (0.40-0.90); GLUCOSE 78 MG/DL (70-104); POTASSIUM 4.5 MMOL/L (3.5-5.1); SODIUM 137 MMOL/L (135-145); TOTAL PROTEIN 6.1 G/DL (6.4-8.2); eGFR 15 ML/MIN
[2017-11-05 06:30] VITALS: BP 146/76
[2017-11-05] MEDS: aspirin 81mg tablet.DR PO SCH (08:00)
[2017-11-05] MEDS: metoprolol tartrate 50mg tablet PO SCH (09:14)
[2017-11-05] MEDS: predniSONE 5mg tablet PO SCH (09:14)
[2017-11-05] MEDS: pantoprazole 40mg Tablet.DR PO SCH (09:14)
[2017-11-05] MEDS: ranolazine 500mg SR tablet (Q12H) PO SCH (09:15)
[2017-11-05] MEDS: ferrous sulfate 325mg tablet PO SCH (09:15)
[2017-11-05] MEDS: lactobacillus rhamnosus 10,000 MMU CELLS/CAPSULE PO SCH (09:15)
[2017-11-05] MEDS: amLODIPine 5mg tablet PO SCH (09:15)
[2017-11-05] MEDS: atorvastatin 20mg tablet PO SCH (09:15)
[2017-11-05] MEDS: CefTRIAXone/D5W-Rocephin 1gm 50 ML IV SCH (09:15)
[2017-11-05] MEDS ORDERED: linezolid 600mg tablet PO SCH (10:55)
[2017-11-05 11:00] VITALS: BP 137/75
[2017-11-05] MEDS ORDERED: doxycycline hyclate 100mg tablet.DR PO SCH (11:10)
[2017-11-05 11:32] LABS: CLARITY,URINE SLIGHTLY CLOUDY (Clear); COLOR,URINE STRAW (Yellow); GLUCOSE, URINE NEGATIVE (Neg); KETONES,URINE NEGATIVE (Neg); LEUKOCYTE ESTERASE ,URINE LARGE (Neg); NITRITES, URINE NEGATIVE (Neg); OCCULT BLOOD,URINE TRACE-INTACT (Neg); PH,URINE 6.5 (4.8-8.0); PROTEIN,URINE NEGATIVE (Neg); UROBILINOGEN,URINE 0.2 E.U/dL (0.2-1.0)
[2017-11-05 11:33] LABS: UA COLLECTION TYPE NON-SPECIFIED
[2017-11-05 11:42] LABS: BACTERIA,URINE FEW /HPF (Neg); MUCUS STRANDS FEW /LPF (Neg); RBC,URINE 0-2 /HPF (0-2); SQUAMOUS EPITHELIAL CELL,UR FEW /LPF (FEW); WBC CLUMPS,URINE MODERATE /HPF (NEGATIVE); WBC,URINE 20-30 /HPF (0-4)
[2017-11-05] MEDS ORDERED: AMLO5TAB16 PO (11:59)
[2017-11-05] MEDS ORDERED: RANO10003 PO (11:59)
[2017-11-05] MEDS ORDERED: DOXY-200 PO (11:59)
[2017-11-05] MEDS ORDERED: NITR0.4T51 SL (11:59)
[2017-11-05] MEDS ORDERED: NIT10P TD (11:59)
[2017-11-05 15:00] VITALS: BP 136/70
== END 2017-11-05 15:45 | disposition home or self-care (01) | DRG 682 ==
LOC: ER 19:03 → ED HOLD 21:39 → EDBEDREQ 22:03 → PCU 3S 23:30
PROVIDERS: ADMIT Internal Medicine; ATTEND Internal Medicine
PROC: 30233N1 Transfusion of Nonautologous Red Blood Cells into Peripheral Vein, Percutaneous Approach (ICD-10-PCS; principal; 2017-11-03)
DX: N17.9 Acute kidney failure, unspecified (principal); I21.4 Non-ST elevation (NSTEMI) myocardial infarction; N39.0 Urinary tract infection, site not specified; N13.30 Unspecified hydronephrosis; N18.4 Chronic kidney disease, stage 4 (severe); D64.9 Anemia, unspecified; E03.9 Hypothyroidism, unspecified; E78.5 Hyperlipidemia, unspecified; I71.4 Abdominal aortic aneurysm, without rupture; I12.9 Hypertensive chronic kidney disease with stage 1 through stage 4 chronic kidney disease, or unspecified chronic kidney disease; M32.9 Systemic lupus erythematosus, unspecified; B95.61 Methicillin susceptible Staphylococcus aureus infection as the cause of diseases classified elsewhere; E87.5 Hyperkalemia; I25.10 Atherosclerotic heart disease of native coronary artery without angina pectoris; I25.2 Old myocardial infarction; Z90.5 Acquired absence of kidney; Z90.710 Acquired absence of both cervix and uterus; Z93.6 Other artificial openings of urinary tract status; Z95.5 Presence of coronary angioplasty implant and graft; Z98.41 Cataract extraction status, right eye; Z98.42 Cataract extraction status, left eye; Z88.5 Allergy status to narcotic agent; Z88.0 Allergy status to penicillin; Z88.2 Allergy status to sulfonamides; Z91.041 Radiographic dye allergy status; Z79.899 Other long term (current) drug therapy; Z79.82 Long term (current) use of aspirin; Z85.51 Personal history of malignant neoplasm of bladder; Z86.79 Personal history of other diseases of the circulatory system; Z87.891 Personal history of nicotine dependence; Z82.49 Family history of ischemic heart disease and other diseases of the circulatory system
CPT/HCPCS: 36415; 71045; 76775; 80053; 81001; 82570; 83880; 84132; 84156; 84443; 84484; 85025; 85610; 85730; 86885; 86900; 86901; 86920; 87070; 87077; 87088; 87186; 93005; 93306; 97161; 99285; J0696; J0885; J1644; J1940; J7030; J7512; P9016; Q0163

== ENCOUNTER 2018-03-06 23:39 | Inpatient (IN) | payer MEDICARE, OTHER ==
[~2018-03-06] VITALS: Ht 160 cm; Wt 77.0 kg
[~2018-03-06 23:39] MED LIST changes: +AMLO5TAB16 PO; +ASPI-1071 PO; -ATOR-2 PO; +ATOR80TA PO; +CALC-1197 PO; +DOXY-200 PO; +IRON18TA PO; -LEVO150T PO; +NIT10P TD; +NITR0.4T51 SL; +PRED5TAB PO; +RANO10003 PO
[2018-03-06] MEDS ORDERED: albuterol 2.5 mg/0.5ml nebule NEB STA (23:53)
[2018-03-07] MEDS ORDERED: albuterol 2.5 MG/3 ML nebule NEB STA (00:01)
[2018-03-07] MEDS ORDERED: albuterol 2.5 MG/3 ML nebule ONE (00:03)
[2018-03-07 00:06] LABS: BASOPHILS # (AUTO) 0.1 X10'3 (0-0.2); EOSINOPHILS # (AUTO) 0.1 X10'3 (0-0.9); EOSINOPHILS % (AUTO) 0.9 % (0-6); HEMATOCRIT 28.4 % (35.0-45.0); HEMOGLOBIN 9.4 g/dl (12.0-16.0); LYMPHOCYTES # (AUTO) 1.5 X10'3 (1.1-4.8); LYMPHOCYTES % (AUTO) 16.4 % (21-51); MEAN CORPUSCULAR HEMOGLOBIN 32.1 PG (27.0-31.0); MEAN CORPUSCULAR HGB CONC 32.9 % (33.0-36.5); MEAN CORPUSCULAR VOLUME 97.4 FL (78-98); MONOCYTES # (AUTO) 0.6 X10'3 (0-0.9); NEUTROPHILS # (AUTO) 6.7 X10'3 (1.8-7.7); NEUTROPHILS % (AUTO) 74.7 % (42-75); PLATELET COUNT 237 X10'3 (140-440); RED BLOOD COUNT 2.92 X10'6 (4.20-5.60); RED CELL DISTRIBUTION WIDTH 14.5 % (11.5-14.5)
[2018-03-07 00:19] LABS: ALANINE AMINOTRANSFERASE 24 U/L (12-78); ALBUMIN/GLOBULIN RATIO 0.8 (1.1-1.5); ALKALINE PHOSPHATASE 89 IU/L (46-116); ANION GAP 15 (8-16); ASPARTATE AMINO TRANSFERASE 13 U/L (10-37); BILIRUBIN,TOTAL 0.3 MG/DL (0.1-1.0); BLOOD UREA NITROGEN 71 MG/DL (7-18); BUN/CREATININE RATIO 23.6 (6.6-38.0); CALCIUM 8.6 MG/DL (8.5-10.1); CHLORIDE 102 MMOL/L (99-107); CREATININE 3.01 MG/DL (0.40-0.90); GLUCOSE 114 MG/DL (70-104); POTASSIUM 5.5 MMOL/L (3.5-5.1); SODIUM 133 MMOL/L (135-145); TOTAL CARBON DIOXIDE 16.4 MMOL/L (24-32); TOTAL PROTEIN 6.9 G/DL (6.4-8.2); eGFR 15 ML/MIN
[2018-03-07 01:04] LABS: PARTIAL THROMBOPLASTIN TIME 25 SECONDS (22-32); PROTHROMBIN TIME 10.2 SECONDS (9.0-12.0)
[2018-03-07 01:12] LABS: D-DIMER 5.77 MG/L FEU (0-0.50)
[2018-03-07] MEDS ORDERED: normal saline 1000ml 1,000 ML IV ONE (01:15)
[2018-03-07] MEDS ORDERED: LEVO100T PO (01:21)
[2018-03-07] MEDS ORDERED: NITR0.4T48 SL (01:22)
[2018-03-07] MEDS: nitroGLYCERIN 0.4mg SUBLingual tab SL PRN (01:41)
[2018-03-07] MEDS ORDERED: heparin 25,000 UNIT/250ml bag 250 ML IV SCH (02:12)
[2018-03-07] MEDS ORDERED: heparin 10,000 units/1 ML INJ IV PRN (02:15)
[2018-03-07] MEDS ORDERED: heparin 10,000 units/1 ML INJ IV ONE ×2 (02:15→21:50)
[2018-03-07] MEDS: normal saline 1000ml 1,000 ML IV SCH ×2 (02:57→19:13)
[2018-03-07] MEDS ORDERED: mag hydrox/Alum hydrox/simeth 30ml oral suspension PO PRN (03:00)
[2018-03-07] MEDS ORDERED: magnesium hydroxide 30ml (MOM) UD suspension PO PRN (03:00)
[2018-03-07] MEDS ORDERED: ondansetron/PF 4mg/2ml inj IV PRN (03:00)
[2018-03-07] MEDS ORDERED: acetaminophen 325mg tablet PO PRN (03:00)
[2018-03-07] MEDS ORDERED: nitroGLYCERIN 0.4mg SUBLingual tab SL PRN (03:05)
[2018-03-07 04:50] VITALS: BP 161/81
[2018-03-07 06:00] VITALS: BP 158/82
[2018-03-07] MEDS: levoTHYROXINE 100mcg tablet PO SCH (07:40)
[2018-03-07] MEDS: aspirin 81mg tablet.DR PO SCH (07:40)
[2018-03-07] MEDS: prednisone 10mg tablet PO SCH (07:40)
[2018-03-07] MEDS: atorvastatin 20mg tablet PO SCH (07:44)
[2018-03-07] MEDS: ferrous sulfate 325mg tablet PO SCH (07:44)
[2018-03-07] MEDS ORDERED: metoprolol tartrate 25mg tablet PO SCH (08:00)
[2018-03-07] MEDS ORDERED: METO25TA6 PO (10:34)
[2018-03-07] MEDS: ipratropium/albuterol 3ml nebule NEB SCH ×3 (13:00→21:06)
[2018-03-07] MEDS: azithromycin 250mg tablet PO SCH (13:14)
[2018-03-07 15:00] VITALS: BP 138/68
[2018-03-07 18:00] VITALS: BP 147/77
[2018-03-07 19:30] VITALS: BP 138/65
[2018-03-07] MEDS: metoprolol tartrate 25mg tablet PO SCH (19:31)
[2018-03-07 22:00] VITALS: BP 141/72
[2018-03-07] MEDS: heparin 25,000 UNIT/250ml bag 250 ML IV SCH (22:43)
[2018-03-08] VITALS (7 sets, daily range): BP systolic 107–166; BP diastolic 58–78
[2018-03-08] MEDS: nitroGLYCERIN 0.4mg SUBLingual tab SL PRN ×2 (01:26→06:51)
[2018-03-08 06:03] LABS: ANION GAP 13 (8-16); BILIRUBIN,TOTAL 0.3 MG/DL (0.1-1.0); BLOOD UREA NITROGEN 63 MG/DL (7-18); BUN/CREATININE RATIO 23.6 (6.6-38.0); CALCIUM 9.3 MG/DL (8.5-10.1); CHLORIDE 109 MMOL/L (99-107); CREATININE 2.67 MG/DL (0.40-0.90); GLUCOSE 81 MG/DL (70-104); SODIUM 138 MMOL/L (135-145); TOTAL CARBON DIOXIDE 16.1 MMOL/L (24-32); eGFR 17 ML/MIN
[2018-03-08 06:04] LABS: ALANINE AMINOTRANSFERASE 17 U/L (12-78); ALBUMIN 2.5 G/DL (3.4-5.0); ALBUMIN/GLOBULIN RATIO 0.7 (1.1-1.5); ALKALINE PHOSPHATASE 58 IU/L (46-116); ASPARTATE AMINO TRANSFERASE 17 U/L (10-37); TOTAL PROTEIN 5.9 G/DL (6.4-8.2)
[2018-03-08 06:07] LABS: BASOPHILS # (AUTO) 0.1 X10'3 (0-0.2); BASOPHILS % (AUTO) 1.2 % (0-1); EOSINOPHILS # (AUTO) 0.2 X10'3 (0-0.9); EOSINOPHILS % (AUTO) 2.3 % (0-6); HEMATOCRIT 24.5 % (35.0-45.0); HEMOGLOBIN 8.1 g/dl (12.0-16.0); LYMPHOCYTES # (AUTO) 1.6 X10'3 (1.1-4.8); LYMPHOCYTES % (AUTO) 19.9 % (21-51); MEAN CORPUSCULAR HEMOGLOBIN 32.1 PG (27.0-31.0); MEAN CORPUSCULAR VOLUME 97.4 FL (78-98); MEAN PLATELET VOLUME 7.3 FL (7.4-10.4); MONOCYTES # (AUTO) 0.7 X10'3 (0-0.9); MONOCYTES % (AUTO) 8.6 % (2-12); NEUTROPHILS # (AUTO) 5.4 X10'3 (1.8-7.7); PLATELET COUNT 182 X10'3 (140-440); RED BLOOD COUNT 2.52 X10'6 (4.20-5.60); RED CELL DISTRIBUTION WIDTH 14.4 % (11.5-14.5); WHITE BLOOD COUNT 7.9 X10'3 (4.5-11.0)
[2018-03-08 06:37] LABS: TROPONIN I 1.27 NG/ML (0.0-0.05)
[2018-03-08] MEDS: ipratropium/albuterol 3ml nebule NEB SCH ×4 (07:03→19:41)
[2018-03-08] MEDS: aspirin 81mg tablet.DR PO SCH (08:00)
[2018-03-08] MEDS: ferrous sulfate 325mg tablet PO SCH (08:18)
[2018-03-08] MEDS: atorvastatin 20mg tablet PO SCH (08:19)
[2018-03-08] MEDS: prednisone 10mg tablet PO SCH (08:20)
[2018-03-08] MEDS: metoprolol tartrate 25mg tablet PO SCH ×2 (08:20→19:42)
[2018-03-08] MEDS: azithromycin 250mg tablet PO SCH (08:23)
[2018-03-08] MEDS: levoTHYROXINE 100mcg tablet PO SCH (08:23)
[2018-03-08] MEDS: heparin 25,000 UNIT/250ml bag 250 ML IV SCH ×2 (08:29→21:18)
[2018-03-08] MEDS: isosorbide mononitrate 30mg tab.SR.24H PO SCH (10:53)
[2018-03-08] MEDS: furosemide 20 MG/2 ML vial IV SCH ×2 (10:54→19:41)
[2018-03-08] MEDS: acetaminophen 325mg tablet PO PRN (16:01)
[2018-03-08] MEDS: BUDESONIDE 0.25 MG/2 ML AMPUL.NEB IH SCH (19:41)
[2018-03-08] MEDS: lactobacillus rhamnosus 10,000 MMU CELLS/CAPSULE PO SCH (20:00)
[2018-03-08] MEDS: heparin 10,000 units/1 ML INJ IV PRN (21:16)
[2018-03-09] VITALS (8 sets, daily range): BP systolic 95–148; BP diastolic 47–81
[2018-03-09] MEDS: normal saline 1000ml 1,000 ML IV SCH (02:57)
[2018-03-09 03:30] LABS: BASOPHILS # (AUTO) 0.1 X10'3 (0-0.2); BASOPHILS % (AUTO) 0.7 % (0-1); EOSINOPHILS # (AUTO) 0.3 X10'3 (0-0.9); EOSINOPHILS % (AUTO) 3.9 % (0-6); HEMATOCRIT 26.7 % (35.0-45.0); HEMOGLOBIN 8.5 g/dl (12.0-16.0); LYMPHOCYTES # (AUTO) 1.6 X10'3 (1.1-4.8); LYMPHOCYTES % (AUTO) 17.7 % (21-51); MEAN CORPUSCULAR HGB CONC 31.8 % (33.0-36.5); MEAN CORPUSCULAR VOLUME 97.5 FL (78-98); MEAN PLATELET VOLUME 7.2 FL (7.4-10.4); MONOCYTES # (AUTO) 0.9 X10'3 (0-0.9); MONOCYTES % (AUTO) 10.4 % (2-12); NEUTROPHILS # (AUTO) 5.9 X10'3 (1.8-7.7); NEUTROPHILS % (AUTO) 67.3 % (42-75); PLATELET COUNT 226 X10'3 (140-440); RED BLOOD COUNT 2.74 X10'6 (4.20-5.60); RED CELL DISTRIBUTION WIDTH 15.3 % (11.5-14.5); WHITE BLOOD COUNT 8.8 X10'3 (4.5-11.0)
[2018-03-09 03:46] LABS: ALANINE AMINOTRANSFERASE 18 U/L (12-78); ALBUMIN 2.7 G/DL (3.4-5.0); ALBUMIN/GLOBULIN RATIO 0.7 (1.1-1.5); ALKALINE PHOSPHATASE 76 IU/L (46-116); ANION GAP 12 (8-16); ASPARTATE AMINO TRANSFERASE 17 U/L (10-37); BILIRUBIN,TOTAL 0.3 MG/DL (0.1-1.0); BLOOD UREA NITROGEN 76 MG/DL (7-18); BUN/CREATININE RATIO 23.2 (6.6-38.0); CHLORIDE 105 MMOL/L (99-107); CREATININE 3.27 MG/DL (0.40-0.90); GLUCOSE 97 MG/DL (70-104); POTASSIUM 5.4 MMOL/L (3.5-5.1); SODIUM 135 MMOL/L (135-145); TOTAL PROTEIN 6.4 G/DL (6.4-8.2); eGFR 14 ML/MIN
[2018-03-09] MEDS: heparin 25,000 UNIT/250ml bag 250 ML IV SCH ×2 (05:23→20:23)
[2018-03-09] MEDS: ipratropium/albuterol 3ml nebule NEB SCH ×4 (07:04→19:50)
[2018-03-09] MEDS: BUDESONIDE 0.25 MG/2 ML AMPUL.NEB IH SCH ×2 (07:04→19:50)
[2018-03-09] MEDS: atorvastatin 20mg tablet PO SCH (07:36)
[2018-03-09] MEDS: metoprolol tartrate 25mg tablet PO SCH ×2 (07:36→19:16)
[2018-03-09] MEDS: ferrous sulfate 325mg tablet PO SCH (07:36)
[2018-03-09] MEDS: azithromycin 250mg tablet PO SCH (07:36)
[2018-03-09] MEDS: lactobacillus rhamnosus 10,000 MMU CELLS/CAPSULE PO SCH ×2 (07:36→19:10)
[2018-03-09] MEDS: isosorbide mononitrate 30mg tab.SR.24H PO SCH (07:36)
[2018-03-09] MEDS: furosemide 20 MG/2 ML vial IV SCH (07:37)
[2018-03-09] MEDS: levoTHYROXINE 100mcg tablet PO SCH (07:37)
[2018-03-09] MEDS: aspirin 81mg tablet.DR PO SCH (08:00)
[2018-03-09] MEDS: acetaminophen 325mg tablet PO PRN (11:48)
[2018-03-09] MEDS ORDERED: furosemide 20 MG/2 ML vial IV PRN (16:35)
[2018-03-09] MEDS: heparin 10,000 units/1 ML INJ IV PRN (20:21)
[2018-03-10] VITALS (8 sets, daily range): BP systolic 88–125; BP diastolic 45–62
[2018-03-10] MEDS: heparin 25,000 UNIT/250ml bag 250 ML IV SCH (03:23)
[2018-03-10 06:48] LABS: BASOPHILS # (AUTO) 0.1 X10'3 (0-0.2); BASOPHILS % (AUTO) 0.8 % (0-1); EOSINOPHILS # (AUTO) 0.6 X10'3 (0-0.9); EOSINOPHILS % (AUTO) 7.7 % (0-6); HEMATOCRIT 27.1 % (35.0-45.0); LYMPHOCYTES # (AUTO) 1.5 X10'3 (1.1-4.8); MEAN CORPUSCULAR HEMOGLOBIN 32.4 PG (27.0-31.0); MEAN CORPUSCULAR HGB CONC 33.1 % (33.0-36.5); MEAN PLATELET VOLUME 7.5 FL (7.4-10.4); MONOCYTES # (AUTO) 0.8 X10'3 (0-0.9); MONOCYTES % (AUTO) 9.3 % (2-12); NEUTROPHILS # (AUTO) 5.4 X10'3 (1.8-7.7); NEUTROPHILS % (AUTO) 64.2 % (42-75); PLATELET COUNT 231 X10'3 (140-440); RED BLOOD COUNT 2.77 X10'6 (4.20-5.60); RED CELL DISTRIBUTION WIDTH 14.7 % (11.5-14.5); WHITE BLOOD COUNT 8.4 X10'3 (4.5-11.0)
[2018-03-10 06:50] LABS: ALBUMIN 2.7 G/DL (3.4-5.0); ANION GAP 12 (8-16); BLOOD UREA NITROGEN 75 MG/DL (7-18); BUN/CREATININE RATIO 23.3 (6.6-38.0); CALCIUM 9.5 MG/DL (8.5-10.1); CHLORIDE 105 MMOL/L (99-107); CREATININE 3.22 MG/DL (0.40-0.90); GLUCOSE 80 MG/DL (70-104); POTASSIUM 5.2 MMOL/L (3.5-5.1); SODIUM 135 MMOL/L (135-145); TOTAL CARBON DIOXIDE 18.3 MMOL/L (24-32); eGFR 14 ML/MIN
[2018-03-10] MEDS: ipratropium/albuterol 3ml nebule NEB SCH ×4 (07:11→19:45)
[2018-03-10] MEDS: BUDESONIDE 0.25 MG/2 ML AMPUL.NEB IH SCH ×2 (07:11→19:46)
[2018-03-10] MEDS: levoTHYROXINE 100mcg tablet PO SCH (08:15)
[2018-03-10] MEDS: isosorbide mononitrate 30mg tab.SR.24H PO SCH (08:15)
[2018-03-10] MEDS: atorvastatin 20mg tablet PO SCH (08:15)
[2018-03-10] MEDS: aspirin 81mg tablet.DR PO SCH (08:15)
[2018-03-10] MEDS: azithromycin 250mg tablet PO SCH (08:16)
[2018-03-10] MEDS: ferrous sulfate 325mg tablet PO SCH (08:16)
[2018-03-10] MEDS: lactobacillus rhamnosus 10,000 MMU CELLS/CAPSULE PO SCH ×2 (08:16→19:58)
[2018-03-10] MEDS: metoprolol tartrate 25mg tablet PO SCH (08:18)
[2018-03-10] MEDS: acetaminophen 325mg tablet PO PRN (09:02)
[2018-03-10] MEDS: nitroGLYCERIN 0.4mg SUBLingual tab SL PRN ×3 (12:35→12:58)
[2018-03-10] MEDS ORDERED: heparin 25,000 UNIT/250ml bag 250 ML IV SCH (12:53)
[2018-03-10] MEDS ORDERED: heparin 10,000 units/1 ML INJ IV PRN (12:55)
[2018-03-10 14:27] LABS: PARTIAL THROMBOPLASTIN TIME 29 SECONDS (22-32)
[2018-03-10] MEDS: metoprolol tartrate 12.5mg (1/2 tablet) PO SCH (19:58)
[2018-03-11 03:00] VITALS: BP 132/65
[2018-03-11 06:00] VITALS: BP 134/62
[2018-03-11 07:06] LABS: EOSINOPHILS # (AUTO) 0.6 X10'3 (0-0.9); LYMPHOCYTES # (AUTO) 1.2 X10'3 (1.1-4.8); MEAN PLATELET VOLUME 7.5 FL (7.4-10.4); MONOCYTES # (AUTO) 0.9 X10'3 (0-0.9)
[2018-03-11] MEDS: levoTHYROXINE 100mcg tablet PO SCH (07:22)
[2018-03-11] MEDS: atorvastatin 20mg tablet PO SCH (07:22)
[2018-03-11] MEDS: aspirin 81mg tablet.DR PO SCH (07:22)
[2018-03-11] MEDS: metoprolol tartrate 12.5mg (1/2 tablet) PO SCH (07:22)
[2018-03-11] MEDS: ferrous sulfate 325mg tablet PO SCH (07:22)
[2018-03-11] MEDS: azithromycin 250mg tablet PO SCH (07:24)
[2018-03-11 07:25] LABS: BASOPHILS % (AUTO) 0.6 % (0-1); EOSINOPHILS % (AUTO) 7.2 % (0-6); HEMATOCRIT 27.6 % (35.0-45.0); HEMOGLOBIN 9.3 g/dl (12.0-16.0); MEAN CORPUSCULAR HEMOGLOBIN 32.6 PG (27.0-31.0); MEAN CORPUSCULAR HGB CONC 33.6 % (33.0-36.5); MEAN CORPUSCULAR VOLUME 96.9 FL (78-98); NEUTROPHILS % (AUTO) 65.2 % (42-75); PLATELET COUNT 227 X10'3 (140-440); RED BLOOD COUNT 2.85 X10'6 (4.20-5.60); RED CELL DISTRIBUTION WIDTH 14.8 % (11.5-14.5); WHITE BLOOD COUNT 7.7 X10'3 (4.5-11.0)
[2018-03-11] MEDS: acetaminophen 325mg tablet PO PRN (07:34)
[2018-03-11] MEDS: BUDESONIDE 0.25 MG/2 ML AMPUL.NEB IH SCH (07:34)
[2018-03-11] MEDS: ipratropium/albuterol 3ml nebule NEB SCH ×3 (07:34→15:32)
[2018-03-11] MEDS: lactobacillus rhamnosus 10,000 MMU CELLS/CAPSULE PO SCH (08:00)
[2018-03-11] MEDS: isosorbide mononitrate 30mg tab.SR.24H PO SCH (08:00)
[2018-03-11 11:00] VITALS: BP 93/57
[2018-03-11] MEDS ORDERED: acetaminophen 650mg rectal suppository RC PRN (13:00)
[2018-03-11] MEDS ORDERED: ALB0.5UD IH (13:22)
[2018-03-11] MEDS ORDERED: BUDE10.22 INH (13:22)
[2018-03-11] MEDS ORDERED: ISOS30TA6 PO (13:22)
[2018-03-11] MEDS ORDERED: TIOT18CA3 NAS (13:22)
[2018-03-11] MEDS ORDERED: IPRA3AMP9 NEB (13:22)
[2018-03-11] MEDS ORDERED: METO25TA6 PO (13:22)
[2018-03-11] MEDS ORDERED: AZI25OT PO (13:22)
[2018-03-11 15:00] VITALS: BP 98/60
== END 2018-03-11 16:45 | disposition home or self-care (01) | DRG 280 ==
LOC: ER 23:39 → ED HOLD 03-07 02:57 → EDBEDREQ 03-07 03:59 → PCU 3S 03-07 04:48
PROVIDERS: ADMIT Internal Medicine; ATTEND Hospitalist
PROC: CB121ZZ Planar Nuclear Medicine Imaging of Lungs and Bronchi using Technetium 99m (Tc-99m) (ICD-10-PCS; principal; 2018-03-07)
DX: I21.4 Non-ST elevation (NSTEMI) myocardial infarction (principal); I50.33 Acute on chronic diastolic (congestive) heart failure; N17.0 Acute kidney failure with tubular necrosis; N18.4 Chronic kidney disease, stage 4 (severe); I13.0 Hypertensive heart and chronic kidney disease with heart failure and stage 1 through stage 4 chronic kidney disease, or unspecified chronic kidney disease; J44.0 Chronic obstructive pulmonary disease with (acute) lower respiratory infection; J20.9 Acute bronchitis, unspecified; D64.9 Anemia, unspecified; E03.9 Hypothyroidism, unspecified; E78.5 Hyperlipidemia, unspecified; I67.1 Cerebral aneurysm, nonruptured; M19.90 Unspecified osteoarthritis, unspecified site; M32.9 Systemic lupus erythematosus, unspecified; I25.110 Atherosclerotic heart disease of native coronary artery with unstable angina pectoris; I08.1 Rheumatic disorders of both mitral and tricuspid valves; I71.4 Abdominal aortic aneurysm, without rupture; I25.2 Old myocardial infarction; Z90.710 Acquired absence of both cervix and uterus; Z90.5 Acquired absence of kidney; Z88.0 Allergy status to penicillin; Z88.2 Allergy status to sulfonamides; Z88.6 Allergy status to analgesic agent; Z88.8 Allergy status to other drugs, medicaments and biological substances; Z91.041 Radiographic dye allergy status; Z79.82 Long term (current) use of aspirin; Z87.891 Personal history of nicotine dependence; Z85.51 Personal history of malignant neoplasm of bladder; Z82.49 Family history of ischemic heart disease and other diseases of the circulatory system; Z83.42 Family history of familial hypercholesterolemia; Z80.9 Family history of malignant neoplasm, unspecified
CPT/HCPCS: 36415; 71045; 78582; 80048; 80053; 83880; 84484; 85025; 85379; 85610; 85730; 87070; 93005; 94640; 94760; A9539; A9540; G0378; J1644; J1940; J7030; J7512; J7611

== ENCOUNTER 2018-04-14 01:32 | Inpatient (IN) | payer MEDICARE, OTHER ==
[~2018-04-14] VITALS: Ht 160 cm; Wt 80.0 kg
[~2018-04-14 01:32] MED LIST changes: -AMLO5TAB16 PO; +AZI25OT PO; +BUDE10.22 INH; -CALC-1197 PO; -DOXY-200 PO; +IPRA3AMP9 NEB; +ISOS30TA6 PO; +LEVO100T PO; -NIT10P TD; +NITR0.4T48 SL; -NITR0.4T51 SL; -PRED5TAB PO; -RANO10003 PO; +TIOT18CA3 NAS
[2018-04-14 02:40] LABS: PARTIAL THROMBOPLASTIN TIME 26 SECONDS (22-32)
[2018-04-14 02:42] LABS: ALANINE AMINOTRANSFERASE 29 U/L (12-78); ALBUMIN 3.3 G/DL (3.4-5.0); ALBUMIN/GLOBULIN RATIO 0.9 (1.1-1.5); ALKALINE PHOSPHATASE 84 IU/L (46-116); ANION GAP 16 (8-16); ASPARTATE AMINO TRANSFERASE 15 U/L (10-37); BILIRUBIN,TOTAL 0.2 MG/DL (0.1-1.0); BLOOD UREA NITROGEN 61 MG/DL (7-18); CHLORIDE 105 MMOL/L (99-107); CREATININE 3.58 MG/DL (0.40-0.90); GLUCOSE 119 MG/DL (70-104); POTASSIUM 4.9 MMOL/L (3.5-5.1); SODIUM 137 MMOL/L (135-145); TOTAL CARBON DIOXIDE 16.4 MMOL/L (24-32); TOTAL PROTEIN 7.1 G/DL (6.4-8.2); eGFR 12 ML/MIN
[2018-04-14 02:58] LABS: BASOPHILS % (AUTO) 0.2 % (0-1); EOSINOPHILS % (AUTO) 0.4 % (0-6); HEMATOCRIT 26.4 % (35.0-45.0); HEMOGLOBIN 8.5 g/dl (12.0-16.0); LYMPHOCYTES # (AUTO) 0.7 X10'3 (1.1-4.8); LYMPHOCYTES % (AUTO) 8.7 % (21-51); MEAN CORPUSCULAR HEMOGLOBIN 31.6 PG (27.0-31.0); MEAN CORPUSCULAR HGB CONC 32.2 % (33.0-36.5); MEAN CORPUSCULAR VOLUME 98.2 FL (78-98); MEAN PLATELET VOLUME 6.8 FL (7.4-10.4); MONOCYTES # (AUTO) 0.7 X10'3 (0-0.9); MONOCYTES % (AUTO) 8.8 % (2-12); NEUTROPHILS # (AUTO) 6.2 X10'3 (1.8-7.7); NEUTROPHILS % (AUTO) 81.9 % (42-75); PLATELET COUNT 280 X10'3 (140-440); RED BLOOD COUNT 2.69 X10'6 (4.20-5.60); RED CELL DISTRIBUTION WIDTH 14.7 % (11.5-14.5); WHITE BLOOD COUNT 7.6 X10'3 (4.5-11.0)
[2018-04-14] MEDS ORDERED: HYDROmorphone 1 mg/ml syringe IV PRN (03:35)
[2018-04-14] MEDS ORDERED: metoclopramide 5 mg/ml inj IV PRN (03:35)
[2018-04-14] MEDS ORDERED: mag hydrox/Alum hydrox/simeth 30ml oral suspension PO PRN (03:35)
[2018-04-14] MEDS ORDERED: aminophylline 250mg/10ml inj. IV PRN (03:35)
[2018-04-14] MEDS ORDERED: magnesium hydroxide 30ml (MOM) UD suspension PO PRN (03:35)
[2018-04-14] MEDS ORDERED: acetaminophen 650mg rectal suppository RC PRN (03:35)
[2018-04-14] MEDS ORDERED: HYDROcodone/acetaminophen 10/325mg tab PO PRN (03:35)
[2018-04-14] MEDS ORDERED: diphenhydrAMINE 50 mg/ml inj IV PRN (03:35)
[2018-04-14] MEDS ORDERED: metoprolol tartrate 1mg/ml inj IV PRN (03:35)
[2018-04-14] MEDS ORDERED: ondansetron/PF 4mg/2ml inj IV PRN (03:35)
[2018-04-14] MEDS ORDERED: acetaminophen 325mg tablet PO PRN ×2 (03:35)
[2018-04-14] MEDS ORDERED: morphine 2 MG/ML inj. syringe IV PRN (03:35)
[2018-04-14] MEDS ORDERED: bisacodyl 10mg suppository rectal RC PRN (03:35)
[2018-04-14] MEDS ORDERED: diphenhydrAMINE 25mg capsule PO PRN (03:35)
[2018-04-14] MEDS ORDERED: regadenoson 0.4mg/5ml syringe IV ONE (03:35)
[2018-04-14] MEDS ORDERED: levoFLOXACIN-Levaquin 500mg/D5 100 ML IV ONE (04:00)
[2018-04-14 04:09] LABS: HEMOGLOBIN A1C 5.3 % (4.5-6.2)
[2018-04-14 04:18] LABS: MAGNESIUM 1.7 MG/DL (1.5-2.4); PHOSPHORUS 5.2 MG/DL (2.3-4.5)
[2018-04-14 04:33] LABS: D-DIMER 4.99 MG/L FEU (0-0.50)
[2018-04-14 07:47] VITALS: BP 147/72
[2018-04-14] MEDS: methylPREDNISolone sod succ 125mg/2ml vial IV SCH ×2 (09:35→19:55)
[2018-04-14] MEDS: furosemide 10 MG/1 ML 10ml inj IV SCH (09:35)
[2018-04-14] MEDS: heparin, porcine 5000 units/ml vial SQ SCH ×2 (09:37→19:56)
[2018-04-14] MEDS: docusate sod 100mg capsule PO SCH ×2 (09:39→19:55)
[2018-04-14 11:00] VITALS: BP 170/73
[2018-04-14] MEDS: nitroGLYCERIN 0.1mg/hour patch TD SCH (12:06)
[2018-04-14 19:00] VITALS: BP 142/71
[2018-04-14] MEDS ORDERED: temazepam 15mg capsule PO PRN (21:00)
[2018-04-15] VITALS: BP 158/83
[2018-04-15] MEDS: nitroGLYCERIN 0.4mg SUBLingual tab SL PRN ×2 (06:35→06:48)
[2018-04-15 06:53] LABS: BASOPHILS % (AUTO) 0.1 % (0-1); EOSINOPHILS % (AUTO) 0 % (0-6); HEMATOCRIT 25.3 % (35.0-45.0); HEMOGLOBIN 8.2 g/dl (12.0-16.0); LYMPHOCYTES # (AUTO) 0.5 X10'3 (1.1-4.8); LYMPHOCYTES % (AUTO) 8.7 % (21-51); MEAN CORPUSCULAR HEMOGLOBIN 31.5 PG (27.0-31.0); MEAN CORPUSCULAR HGB CONC 32.5 % (33.0-36.5); MEAN CORPUSCULAR VOLUME 96.9 FL (78-98); MEAN PLATELET VOLUME 6.9 FL (7.4-10.4); MONOCYTES # (AUTO) 0.1 X10'3 (0-0.9); MONOCYTES % (AUTO) 1.7 % (2-12); NEUTROPHILS # (AUTO) 4.7 X10'3 (1.8-7.7); NEUTROPHILS % (AUTO) 89.5 % (42-75); PLATELET COUNT 256 X10'3 (140-440); RED BLOOD COUNT 2.61 X10'6 (4.20-5.60); RED CELL DISTRIBUTION WIDTH 14.2 % (11.5-14.5); WHITE BLOOD COUNT 5.2 X10'3 (4.5-11.0)
[2018-04-15 06:57] LABS: ALANINE AMINOTRANSFERASE 21 U/L (12-78); ALBUMIN/GLOBULIN RATIO 0.8 (1.1-1.5); ALKALINE PHOSPHATASE 59 IU/L (46-116); ANION GAP 15 (8-16); ASPARTATE AMINO TRANSFERASE 13 U/L (10-37); BILIRUBIN,TOTAL 0.3 MG/DL (0.1-1.0); BLOOD UREA NITROGEN 60 MG/DL (7-18); BUN/CREATININE RATIO 19.4 (6.6-38.0); CALCIUM 9.2 MG/DL (8.5-10.1); CHLORIDE 104 MMOL/L (99-107); CHOL/HDL RATIO 2.4 (0.00-4.99); CHOLESTEROL 189 MG/DL (0-200); CREATININE 3.09 MG/DL (0.40-0.90); GLUCOSE 133 MG/DL (70-104); HDL CHOLESTEROL 79 MG/DL (35-60); LDL CHOLESTEROL 102 MG/DL (50-100); POTASSIUM 4.9 MMOL/L (3.5-5.1); SODIUM 135 MMOL/L (135-145); TOTAL CARBON DIOXIDE 16.3 MMOL/L (24-32); TOTAL PROTEIN 6.6 G/DL (6.4-8.2); TRIGLYCERIDES 47 MG/DL (20-135); eGFR 15 ML/MIN
[2018-04-15 07:30] VITALS: BP 171/90
[2018-04-15] MEDS: docusate sod 100mg capsule PO SCH (08:00)
[2018-04-15] MEDS: furosemide 10 MG/1 ML 10ml inj IV SCH (08:00)
[2018-04-15] MEDS: heparin, porcine 5000 units/ml vial SQ SCH (09:30)
[2018-04-15] MEDS: methylPREDNISolone sod succ 125mg/2ml vial IV SCH (09:32)
[2018-04-15] MEDS ORDERED: FURO-150 PO (09:54)
[2018-04-15 11:00] VITALS: BP 157/76
[2018-04-15] MEDS: nitroGLYCERIN 0.1mg/hour patch TD SCH (11:03)
[2018-04-16] MEDS ORDERED: levoFLOXACIN-Levaquin 250mg/D5 50 ML IV SCH (06:00)
[2018-04-16] MEDS ORDERED: levoFLOXACIN-Levaquin 500mg/D5 100 ML IV SCH (06:00)
== END 2018-04-15 13:05 | disposition home or self-care (01) | DRG 682 ==
LOC: ER 01:33 → ED HOLD 03:32 → SUR 3N 07:51
PROVIDERS: ADMIT Family Medicine; ATTEND Internal Medicine
DX: N17.9 Acute kidney failure, unspecified (principal); I50.31 Acute diastolic (congestive) heart failure; I13.0 Hypertensive heart and chronic kidney disease with heart failure and stage 1 through stage 4 chronic kidney disease, or unspecified chronic kidney disease; J44.1 Chronic obstructive pulmonary disease with (acute) exacerbation; E87.2 Acidosis; N18.4 Chronic kidney disease, stage 4 (severe); D64.9 Anemia, unspecified; E03.9 Hypothyroidism, unspecified; I27.81 Cor pulmonale (chronic); E78.5 Hyperlipidemia, unspecified; I25.10 Atherosclerotic heart disease of native coronary artery without angina pectoris; I25.2 Old myocardial infarction; Z98.61 Coronary angioplasty status; Z90.5 Acquired absence of kidney; Z90.710 Acquired absence of both cervix and uterus; Z88.5 Allergy status to narcotic agent; Z88.0 Allergy status to penicillin; Z88.2 Allergy status to sulfonamides; Z91.041 Radiographic dye allergy status; Z79.899 Other long term (current) drug therapy; Z87.891 Personal history of nicotine dependence; Z82.49 Family history of ischemic heart disease and other diseases of the circulatory system; Z83.42 Family history of familial hypercholesterolemia; Z80.9 Family history of malignant neoplasm, unspecified
CPT/HCPCS: 36415; 71045; 80053; 80061; 83036; 83605; 83735; 83880; 84100; 84145; 84439; 84443; 84480; 84484; 85025; 85379; 85610; 85730; 87040; 87070; 93005; 93306; 94760; 99285; G0378; J1644; J1940; J1956; J2930

== ENCOUNTER 2018-04-29 08:29 | Emergency (ER) | payer MEDICARE, OTHER ==
[~2018-04-29] VITALS: Ht 160 cm; Wt 75.0 kg
[~2018-04-29 08:29] MED LIST changes: -AZI25OT PO; +FURO-150 PO; -IRON18TA PO
[2018-04-29] MEDS ORDERED: METO25TA6 PO (08:58)
[2018-04-29] MEDS ORDERED: [UNRECOGNIZED DRUG - CODE] (08:58)
[2018-04-29] MEDS ORDERED: PRED5TAB PO (08:58)
[2018-04-29] MEDS ORDERED: FURO-150 PO (08:58)
[2018-04-29 09:24] VITALS: BP 161/90
[2018-04-29 09:34] LABS: BASOPHILS % (AUTO) 0.4 % (0-1); EOSINOPHILS # (AUTO) 0.3 X10'3 (0-0.9); EOSINOPHILS % (AUTO) 4.2 % (0-6); HEMOGLOBIN 9.1 g/dl (12.0-16.0); LYMPHOCYTES # (AUTO) 1.7 X10'3 (1.1-4.8); LYMPHOCYTES % (AUTO) 22.2 % (21-51); MEAN CORPUSCULAR HEMOGLOBIN 31.2 PG (27.0-31.0); MEAN CORPUSCULAR HGB CONC 32.6 % (33.0-36.5); MEAN CORPUSCULAR VOLUME 95.8 FL (78-98); MEAN PLATELET VOLUME 6.7 FL (7.4-10.4); MONOCYTES # (AUTO) 0.6 X10'3 (0-0.9); MONOCYTES % (AUTO) 7.9 % (2-12); NEUTROPHILS # (AUTO) 4.9 X10'3 (1.8-7.7); NEUTROPHILS % (AUTO) 65.3 % (42-75); PLATELET COUNT 247 X10'3 (140-440); RED BLOOD COUNT 2.92 X10'6 (4.20-5.60); RED CELL DISTRIBUTION WIDTH 13.9 % (11.5-14.5); WHITE BLOOD COUNT 7.6 X10'3 (4.5-11.0)
[2018-04-29 09:45] LABS: ALANINE AMINOTRANSFERASE 24 U/L (12-78); ALBUMIN 3.3 G/DL (3.4-5.0); ALBUMIN/GLOBULIN RATIO 0.9 (1.1-1.5); ALKALINE PHOSPHATASE 70 IU/L (46-116); ANION GAP 14 (8-16); ASPARTATE AMINO TRANSFERASE 18 U/L (10-37); BILIRUBIN,TOTAL 0.2 MG/DL (0.1-1.0); BLOOD UREA NITROGEN 50 MG/DL (7-18); CALCIUM 9.1 MG/DL (8.5-10.1); CHLORIDE 106 MMOL/L (99-107); CREATININE 2.63 MG/DL (0.40-0.90); GLUCOSE 80 MG/DL (70-104); POTASSIUM 4.9 MMOL/L (3.5-5.1); SODIUM 138 MMOL/L (135-145); TOTAL CARBON DIOXIDE 18.3 MMOL/L (24-32); eGFR 18 ML/MIN
[2018-04-29 10:03] LABS: PROTHROMBIN TIME 9.8 SECONDS (9.0-12.0)
[2018-04-29 10:04] LABS: PARTIAL THROMBOPLASTIN TIME 22 SECONDS (22-32)
[2018-04-29] MEDS ORDERED: CLOP75TA15 PO (10:29)
== END 2018-04-29 11:05 | disposition left against medical advice (07) ==
LOC: ER 08:29
DX: I20.0 Unstable angina (principal); I50.9 Heart failure, unspecified; I25.2 Old myocardial infarction; Z98.61 Coronary angioplasty status; Z90.710 Acquired absence of both cervix and uterus; Z98.890 Other specified postprocedural states; Z88.0 Allergy status to penicillin; Z88.2 Allergy status to sulfonamides; Z88.5 Allergy status to narcotic agent; Z88.8 Allergy status to other drugs, medicaments and biological substances; Z79.82 Long term (current) use of aspirin; Z79.899 Other long term (current) drug therapy
CPT/HCPCS: 36415; 80053; 83880; 84484; 85025; 85610; 85730; 93005; 99284

== ENCOUNTER 2018-06-06 06:25 | Inpatient (IN) | payer MEDICARE, OTHER ==
[~2018-06-06] VITALS: Ht 160 cm; Wt 75.0 kg
[~2018-06-06 06:25] MED LIST changes: -BUDE10.22 INH; +CLOP75TA15 PO; -IPRA3AMP9 NEB; +PRED5TAB PO; -TIOT18CA3 NAS; +[UNRECOGNIZED DRUG - CODE]
--- NOTE | 2018-06-06 06:45 | NUR ---
TO ER #8, ACCOMPANIED BY , WITH C/O CHEST PAIN SINCE 99. TOOK NITRO WITH SOME RELIEF. PT HAS HX CARDIAC ISSUES AND AORTIC ANEURYSM. HAS STENTS X 3 SINCE 2013. PAIN 0/10 AT PRESENT.
[2018-06-06 07:27] LABS: BASOPHILS # (AUTO) 0.1 X10'3 (0-0.2); EOSINOPHILS # (AUTO) 0.2 X10'3 (0-0.9); EOSINOPHILS % (AUTO) 3.5 % (0-6); HEMATOCRIT 24.2 % (35.0-45.0); LYMPHOCYTES # (AUTO) 1.5 X10'3 (1.1-4.8); LYMPHOCYTES % (AUTO) 22.8 % (21-51); MEAN CORPUSCULAR HEMOGLOBIN 31.7 PG (27.0-31.0); MEAN CORPUSCULAR HGB CONC 33.2 g/dL (33.0-36.5); MEAN CORPUSCULAR VOLUME 95.7 FL (78-98); MEAN PLATELET VOLUME 6.9 FL (7.4-10.4); MONOCYTES # (AUTO) 0.8 X10'3 (0-0.9); MONOCYTES % (AUTO) 11.4 % (2-12); NEUTROPHILS % (AUTO) 60.3 % (42-75); PLATELET COUNT 204 X10'3 (140-440); RED BLOOD COUNT 2.53 X10'6 (4.20-5.60); WHITE BLOOD COUNT 6.7 X10'3 (4.5-11.0)
[2018-06-06 07:40] LABS: ALANINE AMINOTRANSFERASE 19 U/L (12-78); ALBUMIN 2.9 G/DL (3.4-5.0); ALBUMIN/GLOBULIN RATIO 0.9 (1.1-1.5); ALKALINE PHOSPHATASE 74 IU/L (46-116); ANION GAP 13 (8-16); ASPARTATE AMINO TRANSFERASE 15 U/L (10-37); BILIRUBIN,TOTAL 0.2 MG/DL (0.1-1.0); BLOOD UREA NITROGEN 58 MG/DL (7-18); CALCIUM 8.6 MG/DL (8.5-10.1); CHLORIDE 107 MMOL/L (99-107); GLUCOSE 81 MG/DL (70-104); POTASSIUM 4.9 MMOL/L (3.5-5.1); SODIUM 135 MMOL/L (135-145); TOTAL CARBON DIOXIDE 15.5 MMOL/L (24-32); TOTAL PROTEIN 6.3 G/DL (6.4-8.2); eGFR 16 ML/MIN
[2018-06-06] MEDS ORDERED: aspirin 325mg tablet PO ONE (07:40)
[2018-06-06 07:45] LABS: PARTIAL THROMBOPLASTIN TIME 23 SECONDS (22-32); PROTHROMBIN TIME 10.1 SECONDS (9.0-12.0)
[2018-06-06] MEDS ORDERED: aspirin 81mg tablet.DR PO ONE (07:45)
--- NOTE | 2018-06-06 08:04 | NUR ---
Call placed to Dr. Hoyos- awaiting a call back
[2018-06-06] MEDS: nitroGLYCERIN 0.4mg SUBLingual tab SL PRN (08:05)
[2018-06-06] MEDS ORDERED: heparin 25,000 UNIT/250ml bag 250 ML IV SCH (08:50)
[2018-06-06] MEDS ORDERED: nitroGLYCERIN-Tridil 50MG/D5W 250 ML IV ONE (08:50)
[2018-06-06] MEDS ORDERED: heparin 10,000 units/1 ML INJ IV PRN ×2 (08:50→20:20)
[2018-06-06] MEDS ORDERED: heparin 10,000 units/1 ML INJ IV ONE ×3 (08:50→20:20)
[2018-06-06] MEDS ORDERED: nitroGLYCERIN 1gm ointment UD TP ONE (09:10)
[2018-06-06] MEDS ORDERED: FERR325T28 PO (10:33)
[2018-06-06] MEDS ORDERED: ISOS30TA9 PO (10:33)
[2018-06-06] MEDS ORDERED: METO-539 PO (10:33)
[2018-06-06 10:42] LABS: BASOPHILS % (AUTO) 0.4 % (0-1); EOSINOPHILS # (AUTO) 0.3 X10'3 (0-0.9); EOSINOPHILS % (AUTO) 3.9 % (0-6); HEMOGLOBIN 8.3 g/dl (12.0-16.0); LYMPHOCYTES # (AUTO) 1.8 X10'3 (1.1-4.8); LYMPHOCYTES % (AUTO) 24.2 % (21-51); MEAN CORPUSCULAR HEMOGLOBIN 31.5 PG (27.0-31.0); MEAN CORPUSCULAR HGB CONC 33.1 g/dL (33.0-36.5); MEAN PLATELET VOLUME 6.9 FL (7.4-10.4); MONOCYTES # (AUTO) 0.7 X10'3 (0-0.9); MONOCYTES % (AUTO) 9.7 % (2-12); NEUTROPHILS # (AUTO) 4.5 X10'3 (1.8-7.7); NEUTROPHILS % (AUTO) 61.8 % (42-75); PLATELET COUNT 204 X10'3 (140-440); RED BLOOD COUNT 2.63 X10'6 (4.20-5.60); RED CELL DISTRIBUTION WIDTH 14.8 % (11.5-14.5); WHITE BLOOD COUNT 7.3 X10'3 (4.5-11.0)
[2018-06-06] MEDS ORDERED: HYDROcodone/acetaminophen 5mg/325mg tablet PO PRN (12:50)
[2018-06-06] MEDS ORDERED: HYDROcodone/acetaminophen 10/325mg tab PO PRN (12:50)
[2018-06-06] MEDS ORDERED: acetaminophen 325mg tablet PO PRN (12:50)
[2018-06-06] MEDS ORDERED: ondansetron/PF 4mg/2ml inj IV PRN (12:50)
[2018-06-06] MEDS ORDERED: docusate sod 100mg capsule PO PRN (12:50)
[2018-06-06] MEDS ORDERED: morphine 4 MG/ML inj SYRINge IV PRN ×2 (12:50)
[2018-06-06] MEDS: normal saline 1000ml 1,000 ML IV SCH (13:18)
--- NOTE | 2018-06-06 14:37 | NUR ---
TOLERATED LUNCH FAIR AND RETAINED. MONITOR INTACT DISPLAYING SINUS RHYTHM. STATES MILD PAIN PERSISTS IN LEFT ARM. RESP UNLABORED. AWAITING INPATIENT BED ASSIGNMENT.
--- NOTE | 2018-06-06 15:10 | NUR ---
ECHOCARDIOGRAM PERFORMED AT THE BEDSIDE.
--- NOTE | 2018-06-06 16:00 | NUR ---
PATIENT PLACED ON HOSPITAL BED. AT THE BEDSIDE.
[2018-06-06 17:07] LABS: PARTIAL THROMBOPLASTIN TIME 53 SECONDS (22-32)
[2018-06-06 17:52] VITALS: BP_SYST 91
--- NOTE | 2018-06-06 18:04 | NUR ---
PAGER ID: [phone] MESSAGE: [id number] Savannah Chavarria: BP 172/91. CHE Cartwright Ext [phone]
--- NOTE | 2018-06-06 18:09 | NUR ---
PAGER ID: [phone] MESSAGE: RM [id number] I see the first dose is at midnight for the hydralazine. Do you want me to change the first dose to be given now? CHE Cartwright Ext [phone]
[2018-06-06] MEDS: hydrALAZINE 25 MG tablet PO SCH ×2 (18:40→23:04)
--- NOTE | 2018-06-06 18:59 | NUR ---
Problems reprioritized. Patient report given, questions answered & plan of care reviewed with CHE Gold.
[2018-06-06 19:00] VITALS: BP 163/89
[2018-06-06] MEDS ORDERED: heparin, porcine 5000 units/ml vial SQ SCH (20:00)
[2018-06-06] MEDS: heparin 25,000 UNIT/250ml bag 250 ML IV SCH ×2 (21:27→21:32)
[2018-06-06 23:00] VITALS: BP 167/90
[2018-06-07] VITALS (16 sets, daily range): BP systolic 129–156; BP diastolic 63–83
[2018-06-07] MEDS: nitroGLYCERIN 0.4mg SUBLingual tab SL PRN ×3 (00:32→06:22)
[2018-06-07] MEDS: normal saline 1000ml 1,000 ML IV SCH ×2 (02:00→15:27)
[2018-06-07 03:55] LABS: BASOPHILS % (AUTO) 0.5 % (0-1); EOSINOPHILS # (AUTO) 0.3 X10'3 (0-0.9); EOSINOPHILS % (AUTO) 4.3 % (0-6); HEMATOCRIT 22.8 % (35.0-45.0); HEMOGLOBIN 7.5 g/dl (12.0-16.0); LYMPHOCYTES # (AUTO) 1.5 X10'3 (1.1-4.8); LYMPHOCYTES % (AUTO) 22.1 % (21-51); MEAN CORPUSCULAR HEMOGLOBIN 31.4 PG (27.0-31.0); MEAN CORPUSCULAR HGB CONC 33.1 g/dL (33.0-36.5); MEAN CORPUSCULAR VOLUME 94.9 FL (78-98); MEAN PLATELET VOLUME 7.2 FL (7.4-10.4); MONOCYTES # (AUTO) 0.7 X10'3 (0-0.9); MONOCYTES % (AUTO) 10.4 % (2-12); NEUTROPHILS # (AUTO) 4.4 X10'3 (1.8-7.7); NEUTROPHILS % (AUTO) 62.7 % (42-75); PLATELET COUNT 198 X10'3 (140-440); RED CELL DISTRIBUTION WIDTH 15.1 % (11.5-14.5)
[2018-06-07 03:59] LABS: ALBUMIN 2.6 G/DL (3.4-5.0); ANION GAP 11 (8-16); BLOOD UREA NITROGEN 50 MG/DL (7-18); BUN/CREATININE RATIO 21.2 (6.6-38.0); CALCIUM 8.3 MG/DL (8.5-10.1); CHLORIDE 109 MMOL/L (99-107); CREATININE 2.36 MG/DL (0.40-0.90); GLUCOSE 80 MG/DL (70-104); POTASSIUM 5.1 MMOL/L (3.5-5.1); SODIUM 137 MMOL/L (135-145); TOTAL CARBON DIOXIDE 16.8 MMOL/L (24-32); eGFR 20 ML/MIN
[2018-06-07] MEDS: heparin 25,000 UNIT/250ml bag 250 ML IV SCH ×4 (04:12→21:06)
--- NOTE | 2018-06-07 06:09 | NUR ---
Problems reprioritized. Patient report given, questions answered & plan of care reviewed with Shira BOLTON.
[2018-06-07] MEDS ORDERED: METO25TA6 PO (07:16)
[2018-06-07] MEDS ORDERED: ISOS30TA6 PO (07:16)
[2018-06-07] MEDS: hydrALAZINE 25 MG tablet PO SCH ×2 (07:44→16:36)
[2018-06-07] MEDS: ferrous sulfate 325mg tablet PO SCH (07:45)
[2018-06-07] MEDS: aspirin 81mg tablet.DR PO SCH (07:45)
[2018-06-07] MEDS: isosorbide mononitrate 30mg tab.SR.24H PO SCH (07:48)
[2018-06-07] MEDS: metoprolol tartrate 25mg tablet PO SCH ×2 (07:49→18:55)
[2018-06-07] MEDS: atorvastatin 20mg tablet PO SCH (07:50)
[2018-06-07] MEDS: levoTHYROXINE 100mcg tablet PO SCH (07:50)
[2018-06-07] MEDS: pantoprazole 40mg Tablet.DR PO SCH (07:51)
[2018-06-07] MEDS ORDERED: metoprolol succinate 25mg (24-HOUR) SR. Tablet PO SCH ×2 (08:00)
[2018-06-07] MEDS ORDERED: isosorbide dinitrate 30mg tablet PO SCH (08:00)
[2018-06-07] MEDS: acetaminophen 325mg tablet PO PRN (13:08)
[2018-06-07] MEDS ORDERED: heparin 10,000 units/1 ML INJ IV SCH (14:20)
[2018-06-08] MEDS: hydrALAZINE 25 MG tablet PO SCH ×2 (00:30→08:54)
[2018-06-08 03:00] VITALS: BP 159/85
[2018-06-08 03:48] LABS: BASOPHILS % (AUTO) 0.5 % (0-1); EOSINOPHILS # (AUTO) 0.2 X10'3 (0-0.9); HEMATOCRIT 26.4 % (35.0-45.0); HEMOGLOBIN 8.6 g/dl (12.0-16.0); LYMPHOCYTES # (AUTO) 1.2 X10'3 (1.1-4.8); LYMPHOCYTES % (AUTO) 20.1 % (21-51); MEAN CORPUSCULAR HEMOGLOBIN 30.5 PG (27.0-31.0); MEAN CORPUSCULAR HGB CONC 32.4 g/dL (33.0-36.5); MEAN CORPUSCULAR VOLUME 94.1 FL (78-98); MEAN PLATELET VOLUME 7.1 FL (7.4-10.4); MONOCYTES # (AUTO) 0.6 X10'3 (0-0.9); MONOCYTES % (AUTO) 10.2 % (2-12); NEUTROPHILS % (AUTO) 65.2 % (42-75); PLATELET COUNT 190 X10'3 (140-440); RED CELL DISTRIBUTION WIDTH 15.5 % (11.5-14.5); WHITE BLOOD COUNT 6.1 X10'3 (4.5-11.0)
[2018-06-08 03:50] LABS: ALBUMIN 2.5 G/DL (3.4-5.0); ANION GAP 12 (8-16); BLOOD UREA NITROGEN 41 MG/DL (7-18); BUN/CREATININE RATIO 16.9 (6.6-38.0); CALCIUM 8.6 MG/DL (8.5-10.1); CHLORIDE 111 MMOL/L (99-107); CREATININE 2.43 MG/DL (0.40-0.90); GLUCOSE 81 MG/DL (70-104); POTASSIUM 5.2 MMOL/L (3.5-5.1); SODIUM 140 MMOL/L (135-145); TOTAL CARBON DIOXIDE 17.2 MMOL/L (24-32); eGFR 19 ML/MIN
[2018-06-08] MEDS: heparin 25,000 UNIT/250ml bag 250 ML IV SCH (04:17)
[2018-06-08] MEDS: normal saline 1000ml 1,000 ML IV SCH ×2 (04:47→04:58)
[2018-06-08 06:00] VITALS: BP 166/79
[2018-06-08] MEDS: atorvastatin 20mg tablet PO SCH (08:53)
[2018-06-08] MEDS: pantoprazole 40mg Tablet.DR PO SCH (08:54)
[2018-06-08] MEDS: metoprolol tartrate 25mg tablet PO SCH (08:55)
[2018-06-08] MEDS: ferrous sulfate 325mg tablet PO SCH (08:56)
[2018-06-08] MEDS: aspirin 81mg tablet.DR PO SCH (08:56)
[2018-06-08] MEDS: isosorbide mononitrate 30mg tab.SR.24H PO SCH (08:56)
[2018-06-08] MEDS: levoTHYROXINE 100mcg tablet PO SCH (08:56)
[2018-06-08] MEDS ORDERED: ISOS30TA6 PO (10:19)
[2018-06-08] MEDS ORDERED: PANT40TA4 PO (10:20)
[2018-06-08 11:00] VITALS: BP 119/59
[2018-06-08] MEDS: acetaminophen 325mg tablet PO PRN (11:48)
--- NOTE | 2018-06-08 15:19 | NUR ---
Charge nurse removed pt.s tele monitor and IV's, pt. tolerated well. Pt. wheeled down to private vehicle in stable condition. Pt. took with her cell phone and ipad. Pt. no longer on the floor.
== END 2018-06-08 14:30 | disposition home or self-care (01) | DRG 303 ==
LOC: ER 06:25 → ED HOLD 12:47 → PCU 3S 17:52
PROVIDERS: ADMIT Internal Medicine; ATTEND Internal Medicine
PROC: 30233N1 Transfusion of Nonautologous Red Blood Cells into Peripheral Vein, Percutaneous Approach (ICD-10-PCS; principal; 2018-06-07)
DX: I25.110 Atherosclerotic heart disease of native coronary artery with unstable angina pectoris (principal); I13.0 Hypertensive heart and chronic kidney disease with heart failure and stage 1 through stage 4 chronic kidney disease, or unspecified chronic kidney disease; N18.4 Chronic kidney disease, stage 4 (severe); D63.8 Anemia in other chronic diseases classified elsewhere; I71.4 Abdominal aortic aneurysm, without rupture; E03.9 Hypothyroidism, unspecified; E78.5 Hyperlipidemia, unspecified; I50.9 Heart failure, unspecified; K44.9 Diaphragmatic hernia without obstruction or gangrene; M32.9 Systemic lupus erythematosus, unspecified; Z90.5 Acquired absence of kidney; Z90.710 Acquired absence of both cervix and uterus; I25.2 Old myocardial infarction; Z93.3 Colostomy status; Z95.5 Presence of coronary angioplasty implant and graft; Z98.41 Cataract extraction status, right eye; Z98.42 Cataract extraction status, left eye; Z88.5 Allergy status to narcotic agent; Z88.0 Allergy status to penicillin; Z88.2 Allergy status to sulfonamides; Z88.8 Allergy status to other drugs, medicaments and biological substances; Z91.041 Radiographic dye allergy status; Z79.899 Other long term (current) drug therapy; Z85.51 Personal history of malignant neoplasm of bladder; Z87.891 Personal history of nicotine dependence; Z83.42 Family history of familial hypercholesterolemia; Z82.49 Family history of ischemic heart disease and other diseases of the circulatory system
CPT/HCPCS: 36415; 71045; 80048; 80053; 84484; 85025; 85610; 85730; 86885; 86900; 86901; 86920; 87070; 93005; 93308; 96365; 96376; 99285; G0378; J1644; J2270; J7030; P9016

== ENCOUNTER 2019-01-18 19:47 | Emergency (ER) | payer MEDICARE, OTHER ==
[~2019-01-18] VITALS: Ht 160 cm; Wt 72.7 kg
[~2019-01-18 19:47] MED LIST changes: +AMLO5TAB PO; -CLOP75TA15 PO; +FERR325T28 PO; -FURO-150 PO; +PANT40TA4 PO
[2019-01-18 22:02] LABS: BASOPHILS % (AUTO) 0.5 % (0-1); EOSINOPHILS # (AUTO) 0.4 X10'3 (0-0.9); EOSINOPHILS % (AUTO) 5.8 % (0-6); HEMATOCRIT 32.2 % (35.0-45.0); HEMOGLOBIN 10.8 g/dl (12.0-16.0); LYMPHOCYTES # (AUTO) 1.5 X10'3 (1.1-4.8); LYMPHOCYTES % (AUTO) 18.9 % (21-51); MEAN CORPUSCULAR HEMOGLOBIN 33.2 PG (27.0-31.0); MEAN CORPUSCULAR HGB CONC 33.5 g/dL (33.0-36.5); MEAN CORPUSCULAR VOLUME 99.2 FL (78-98); MEAN PLATELET VOLUME 6.9 FL (7.4-10.4); MONOCYTES % (AUTO) 12.5 % (2-12); NEUTROPHILS # (AUTO) 4.8 X10'3 (1.8-7.7); NEUTROPHILS % (AUTO) 62.3 % (42-75); PLATELET COUNT 181 X10'3 (140-440); RED BLOOD COUNT 3.25 X10'6 (4.20-5.60); RED CELL DISTRIBUTION WIDTH 13.5 % (11.5-14.5); WHITE BLOOD COUNT 7.7 X10'3 (4.5-11.0)
[2019-01-18 22:05] LABS: CLARITY,URINE SLIGHTLY CLOUDY (Clear); COLOR,URINE YELLOW (Yellow); GLUCOSE, URINE NEGATIVE (Neg); KETONES,URINE NEGATIVE (Neg); LEUKOCYTE ESTERASE ,URINE LARGE (Neg); NITRITES, URINE NEGATIVE (Neg); OCCULT BLOOD,URINE TRACE-INTACT (Neg); PH,URINE 6.5 (4.8-8.0); PROTEIN,URINE TRACE mg/dl (Neg); UROBILINOGEN,URINE 0.2 E.U/dL (0.2-1.0)
[2019-01-18 22:07] LABS: UA COLLECTION TYPE OTHER
[2019-01-18 22:24] LABS: ALANINE AMINOTRANSFERASE 20 U/L (12-78); ALBUMIN 3.2 G/DL (3.4-5.0); ALBUMIN/GLOBULIN RATIO 0.8 (1.1-1.5); ALKALINE PHOSPHATASE 74 IU/L (46-116); ANION GAP 13 (8-16); ASPARTATE AMINO TRANSFERASE 17 U/L (10-37); BILIRUBIN,TOTAL 0.3 MG/DL (0.1-1.0); BLOOD UREA NITROGEN 62 MG/DL (7-18); CALCIUM 9.9 MG/DL (8.5-10.1); CHLORIDE 104 MMOL/L (99-107); CREATININE 3.45 MG/DL (0.40-0.90); GLUCOSE 92 MG/DL (70-104); MAGNESIUM 1.7 MG/DL (1.5-2.4); POTASSIUM 5.3 MMOL/L (3.5-5.1); SODIUM 136 MMOL/L (135-145); TOTAL CARBON DIOXIDE 18.6 MMOL/L (24-32); TOTAL PROTEIN 7.3 G/DL (6.4-8.2); eGFR 13 ML/MIN
[2019-01-18 22:26] LABS: BACTERIA,URINE 3+ /HPF (Neg); RBC,URINE 0-2 /HPF (0-2)
[2019-01-18 22:27] LABS: MUCUS STRANDS NONE SEEN /LPF (Neg); SQUAMOUS EPITHELIAL CELL,UR NONE SEEN /LPF (FEW)
[2019-01-18 23:53] VITALS: BP 156/76
== END 2019-01-19 01:56 | disposition home or self-care (01) ==
LOC: ER 19:48
DX: N13.4 Hydroureter (principal); N17.9 Acute kidney failure, unspecified; N23 Unspecified renal colic; N18.9 Chronic kidney disease, unspecified; I25.10 Atherosclerotic heart disease of native coronary artery without angina pectoris; I50.9 Heart failure, unspecified; I25.2 Old myocardial infarction; Z90.710 Acquired absence of both cervix and uterus; Z95.5 Presence of coronary angioplasty implant and graft; Z98.890 Other specified postprocedural states; Z88.0 Allergy status to penicillin; Z88.2 Allergy status to sulfonamides; Z88.5 Allergy status to narcotic agent; Z79.82 Long term (current) use of aspirin; Z79.899 Other long term (current) drug therapy
CPT/HCPCS: 36415; 74176; 80053; 81001; 83605; 83735; 84145; 85025; 85610; 87040; 87088; 99284

== ENCOUNTER 2019-03-05 14:48 | Outpatient (CLI) | payer MEDICARE, OTHER | END 2019-03-05 23:59 | disposition home or self-care (01) | LOC: VAS 14:48 | PROVIDERS: ATTEND Surgery | DX: I87.8 Other specified disorders of veins (principal); R60.0 Localized edema; I10 Essential (primary) hypertension; Z87.891 Personal history of nicotine dependence | CPT/HCPCS: 93971 ==

== ENCOUNTER 2019-04-04 08:31 | Inpatient (IN) | payer MEDICARE, OTHER ==
[~2019-04-04] VITALS: Ht 160 cm; Wt 84.0 kg
[2019-04-04] MEDS ORDERED: aspirin 81mg tab.chew PO ONE (09:10)
--- NOTE | 2019-04-04 09:24 | NUR ---
AWAITING BLOOD RESULT.SPOUSE AT BEDSIDE.
[2019-04-04 09:28] LABS: BASOPHILS % (AUTO) 0.1 % (0-1); EOSINOPHILS % (AUTO) 0 % (0-6); HEMATOCRIT 27.4 % (35.0-45.0); HEMOGLOBIN 9.4 g/dl (12.0-16.0); LYMPHOCYTES # (AUTO) 0.5 X10'3 (1.1-4.8); LYMPHOCYTES % (AUTO) 7.8 % (21-51); MEAN CORPUSCULAR HGB CONC 34.2 g/dL (33.0-36.5); MEAN CORPUSCULAR VOLUME 99.4 FL (78-98); MEAN PLATELET VOLUME 6.9 FL (7.4-10.4); MONOCYTES # (AUTO) 0.1 X10'3 (0-0.9); MONOCYTES % (AUTO) 1.6 % (2-12); NEUTROPHILS # (AUTO) 5.7 X10'3 (1.8-7.7); NEUTROPHILS % (AUTO) 90.5 % (42-75); PLATELET COUNT 177 X10'3 (140-440); RED BLOOD COUNT 2.76 X10'6 (4.20-5.60); RED CELL DISTRIBUTION WIDTH 14.1 % (11.5-14.5); WHITE BLOOD COUNT 6.3 X10'3 (4.5-11.0)
[2019-04-04 09:41] LABS: ALANINE AMINOTRANSFERASE 20 U/L (12-78); ALBUMIN 3.2 G/DL (3.4-5.0); ALBUMIN/GLOBULIN RATIO 0.8 (1.1-1.5); ALKALINE PHOSPHATASE 93 IU/L (46-116); ANION GAP 13 (8-16); ASPARTATE AMINO TRANSFERASE 15 U/L (10-37); BILIRUBIN,TOTAL 0.3 MG/DL (0.1-1.0); BLOOD UREA NITROGEN 72 MG/DL (7-18); BUN/CREATININE RATIO 20.6 (6.6-38.0); CALCIUM 8.9 MG/DL (8.5-10.1); CHLORIDE 106 MMOL/L (99-107); GLUCOSE 117 MG/DL (70-104); POTASSIUM 5.7 MMOL/L (3.5-5.1); SODIUM 135 MMOL/L (135-145); TOTAL CARBON DIOXIDE 16.2 MMOL/L (24-32); TOTAL PROTEIN 7.1 G/DL (6.4-8.2); eGFR 13 ML/MIN
[2019-04-04] MEDS: nitroGLYCERIN 0.4mg SUBLingual tab SL PRN ×4 (09:54→14:08)
[2019-04-04] MEDS ORDERED: insulin regular, human 10 units/0.1 ml syringe IV ONE (09:55)
[2019-04-04] MEDS ORDERED: dextrose 50%-water 50ml dispensing syringe IV ONE (09:55)
--- NOTE | 2019-04-04 09:55 | NUR ---
PT C/O 8/ CP NTG X1 GIVEN.
[2019-04-04] MEDS ORDERED: ondansetron/PF 4mg/2ml inj IV PRN (11:35)
[2019-04-04] MEDS ORDERED: potassium Cl 20 mEq SR tablet PO PRN ×2 (11:35)
[2019-04-04] MEDS ORDERED: magnesium Cl slow-release 64mg tablet PO PRN (11:35)
[2019-04-04] MEDS ORDERED: morphine 2 MG/ML inj. syringe IV PRN (11:35)
[2019-04-04] MEDS ORDERED: magnesium 2GM in 50ml NS 50 ML IV PRN (11:35)
[2019-04-04] MEDS ORDERED: magnesium 4gm in 100ml NS 100 ML IV PRN (11:35)
[2019-04-04] MEDS ORDERED: acetaminophen 325mg tablet PO PRN (11:35)
[2019-04-04] MEDS ORDERED: potassium CL 10mEq/100ml bag 100 ML IV PRN ×2 (11:35)
[2019-04-04] MEDS ORDERED: ISOS30TA6 PO (11:43)
[2019-04-04] MEDS ORDERED: AMLO5TAB PO (11:43)
[2019-04-04] MEDS ORDERED: RANI150T8 PO (11:44)
--- NOTE | 2019-04-04 11:54 | NUR ---
ATTEMPTED TO CALL REPORT [facility],LETI BOLTON DISCHARGING A PATIENT AND WILL CALL ME BACK IN 10 MINUTES.
[2019-04-04 12:24] LABS: MAGNESIUM 1.6 MG/DL (1.5-2.4)
[2019-04-04] MEDS ORDERED: nitroGLYCERIN-Tridil 50MG/D5W 250 ML IV SCH (14:50)
[2019-04-04 15:00] VITALS: BP 166/93
[2019-04-04] MEDS: acetaminophen 325mg tablet PO PRN (16:01)
[2019-04-04] MEDS: sodium chloride 0.45% 1,000 ML IV SCH (16:38)
[2019-04-04 18:00] VITALS: BP 167/86
--- NOTE | 2019-04-04 18:05 | NUR ---
RECEIVED PATIENT REPORT FROM CHE LANDEROS
--- NOTE | 2019-04-04 18:13 | NUR ---
Problems reprioritized. Patient report given, questions answered & plan of care reviewed with Lana BOLTON.
[2019-04-04] MEDS: predniSONE 5mg tablet PO SCH (19:30)
[2019-04-04] MEDS: metoprolol tartrate 25mg tablet PO SCH (19:30)
[2019-04-04] MEDS: famotidine 20mg tablet PO SCH (19:30)
[2019-04-04 20:00] VITALS: BP 163/82
[2019-04-04] MEDS: heparin, porcine 5000 units/ml vial SQ SCH (20:00)
--- NOTE | 2019-04-04 20:36 | NUR ---
PAGER ID: [phone] MESSAGE: pt 8B has unilateral swelling R side larger, may we do a D-dimer to assess a potential clot, pt BP 162/97 w/ nitro drip. -Lana BOLTON ext [phone]
[2019-04-04 21:54] LABS: ALBUMIN 2.8 G/DL (3.4-5.0); ANION GAP 12 (8-16); BLOOD UREA NITROGEN 71 MG/DL (7-18); BUN/CREATININE RATIO 20.3 (6.6-38.0); CALCIUM 8.7 MG/DL (8.5-10.1); CHLORIDE 107 MMOL/L (99-107); CREATININE 3.49 MG/DL (0.40-0.90); GLUCOSE 116 MG/DL (70-104); POTASSIUM 5.7 MMOL/L (3.5-5.1); SODIUM 134 MMOL/L (135-145); TOTAL CARBON DIOXIDE 15.3 MMOL/L (24-32); eGFR 13 ML/MIN
--- NOTE | 2019-04-04 21:59 | NUR ---
PAGER ID: [phone] MESSAGE: pt 308 FYI crit trop 0.77, past trops were negative, no chest pain currently, cath in AM, on nitro gtt. -Lana BOLTON ext [phone]
[2019-04-04 22:00] VITALS: BP 165/98
--- NOTE | 2019-04-04 23:47 | NUR ---
home appliance technician notified patient going on tele 27.
--- NOTE | 2019-04-05 01:26 | NUR ---
Spoke with Dr. Hoyos. Pt is scheduled for heart cath in the AM. Dr. Hoyos is aware that the first three troponin were negative, 12 hour troponin came back positive 0.77. He stated no more troponin lab draws. Pt currently on nitro gtt and showing ST elevation, Dr. Hoyos aware. No further intervention advised. Will continue to monitor. Also notified K+ 5.7 earlier this morning that was treated with insulin and D50, repeat draw still 5.7 K+. Advised to consult with hospitalist.
[2019-04-05 02:00] VITALS: BP 164/97
[2019-04-05] MEDS ORDERED: calcium gluconate inj. 2 GM in normal saline 100ml IV soln 100 ML IV ONE (02:35)
[2019-04-05] MEDS ORDERED: insulin regular, human 10 units/0.1 ml syringe IV ONE (02:50)
[2019-04-05] MEDS ORDERED: sodium polystyrene sulfonate 15gm/60ml oral suspension PO ONE (02:50)
[2019-04-05] MEDS ORDERED: dextrose 50%-water 50ml dispensing syringe IV ONE (02:50)
[2019-04-05] MEDS ORDERED: sodium bicarbonate (8.4%) inj. 1 MEQ/ML ML IV ONE (02:55)
[2019-04-05 03:02] LABS: ALBUMIN 2.9 G/DL (3.4-5.0); ANION GAP 14 (8-16); BLOOD UREA NITROGEN 74 MG/DL (7-18); BUN/CREATININE RATIO 22.7 (6.6-38.0); CALCIUM 8.6 MG/DL (8.5-10.1); CHLORIDE 106 MMOL/L (99-107); CREATININE 3.26 MG/DL (0.40-0.90); GLUCOSE 103 MG/DL (70-104); MAGNESIUM 1.6 MG/DL (1.5-2.4); SODIUM 135 MMOL/L (135-145); TOTAL CARBON DIOXIDE 15.2 MMOL/L (24-32); eGFR 14 ML/MIN
[2019-04-05 03:04] LABS: BASOPHILS # (AUTO) 0.1 X10'3 (0-0.2); BASOPHILS % (AUTO) 0.5 % (0-1); EOSINOPHILS % (AUTO) 0 % (0-6); HEMATOCRIT 25.5 % (35.0-45.0); HEMOGLOBIN 8.7 g/dl (12.0-16.0); LYMPHOCYTES # (AUTO) 0.6 X10'3 (1.1-4.8); LYMPHOCYTES % (AUTO) 5.4 % (21-51); MEAN CORPUSCULAR HEMOGLOBIN 33.8 PG (27.0-31.0); MEAN CORPUSCULAR HGB CONC 33.9 g/dL (33.0-36.5); MEAN PLATELET VOLUME 7.5 FL (7.4-10.4); MONOCYTES # (AUTO) 0.4 X10'3 (0-0.9); MONOCYTES % (AUTO) 3.4 % (2-12); NEUTROPHILS # (AUTO) 10.7 X10'3 (1.8-7.7); NEUTROPHILS % (AUTO) 90.7 % (42-75); PLATELET COUNT 183 X10'3 (140-440); RED BLOOD COUNT 2.56 X10'6 (4.20-5.60); RED CELL DISTRIBUTION WIDTH 14.4 % (11.5-14.5); WHITE BLOOD COUNT 11.8 X10'3 (4.5-11.0)
[2019-04-05 03:06] LABS: POTASSIUM 6.1 MMOL/L (3.5-5.1)
--- NOTE | 2019-04-05 03:13 | NUR ---
PAGER ID: [phone] MESSAGE: 308 pt Deon WEAVERJulio C critical K of 6.1. Her nurse is currently administering the orders you gave to reduce the K. Thank you very much. - Loreto [phone]
[2019-04-05 04:00] VITALS: BP 164/97
[2019-04-05] MEDS ORDERED: sodium bicarbonate (8.4%) 1 mEq/ml syringe IV ONE (04:15)
--- NOTE | 2019-04-05 04:49 | NUR ---
PAGER ID: [phone] MESSAGE: 308 Chavarria pts IV infiltrated. Multiple attempts for new PIV access attempted by nurses. ER charge came and put EJ however to have that on the floor we need an order please. - Loreto [id number] Addendum: 04/05/19 at 0609 by Loreto Jaimes RN Bert TINSLEY per MD Hair.
[2019-04-05] MEDS ORDERED: LIDOcaine/PRILOcaine 5gm cream TP ONE (05:00)
[2019-04-05] MEDS: sodium chloride 0.45% 1,000 ML IV SCH ×2 (05:30→18:50)
[2019-04-05 06:00] VITALS: BP 164/92
--- NOTE | 2019-04-05 06:00 | NUR ---
GAVE PT REPORT TO CHE MADISON
--- NOTE | 2019-04-05 06:00 | NUR ---
Patient in room MED 308. I have received report from CHE Schwartz and had the opportunity to ask questions and assume patient care.
[2019-04-05 06:49] LABS: ANION GAP 15 (8-16); BLOOD UREA NITROGEN 76 MG/DL (7-18); BUN/CREATININE RATIO 22.6 (6.6-38.0); CALCIUM 9.3 MG/DL (8.5-10.1); CHLORIDE 108 MMOL/L (99-107); CREATININE 3.37 MG/DL (0.40-0.90); GLUCOSE 109 MG/DL (70-104); POTASSIUM 4.9 MMOL/L (3.5-5.1); SODIUM 139 MMOL/L (135-145); eGFR 13 ML/MIN
[2019-04-05] MEDS: levoTHYROXINE 100mcg tablet PO SCH ×2 (07:30→10:17)
--- NOTE | 2019-04-05 07:30 | NUR ---
Daughter Elham called for updates, she will visit from [place] on Sunday. [phone] Addendum: 04/05/19 at 0813 by Jacklyn Santos RN Wrong patient
[2019-04-05] MEDS ORDERED: heparin 1,000unit/ml 10ml vial 10 ML ONE (07:31)
[2019-04-05] MEDS ORDERED: verapamil 2.5 mg/ml inj IV ONE (07:31)
[2019-04-05] MEDS ORDERED: nitroGLYCERIN-Tridil 50MG/D5W 250 ML IV ONE (07:31)
[2019-04-05] MEDS ORDERED: fentaNYL/PF 50MCG/1 ML 2ML syringe ONE (07:31)
[2019-04-05] MEDS ORDERED: iohexol 350MG/ML 100ml bottle IV ONE (07:31)
[2019-04-05] MEDS ORDERED: LIDOcaine 1% (10mg/ml)w/preservative injection 20ml MDV ONE (07:31)
[2019-04-05] MEDS ORDERED: midazolam 2 mg/2 ml injection ONE (07:31)
[2019-04-05] MEDS: K and/or MAG REPLACEMENT MC SCH (08:00)
[2019-04-05] MEDS: heparin, porcine 5000 units/ml vial SQ SCH (08:00)
[2019-04-05] MEDS: metoprolol tartrate 25mg tablet PO SCH ×2 (08:00→20:05)
[2019-04-05] MEDS ORDERED: atorvastatin 20mg tablet PO SCH (08:00)
[2019-04-05] MEDS: amLODIPine 5mg tablet PO SCH ×2 (08:00→10:17)
[2019-04-05] MEDS: ferrous sulfate 325mg tablet PO SCH ×2 (08:00→10:26)
[2019-04-05] MEDS: predniSONE 5mg tablet PO SCH ×2 (08:00→10:17)
--- NOTE | 2019-04-05 08:00 | NUR ---
Pt left for laboratory technology teacher in WC, no noted distress.
[2019-04-05] MEDS ORDERED: diphenhydrAMINE 50 mg/ml inj ONE (08:13)
[2019-04-05] MEDS: famotidine 20mg tablet PO SCH ×2 (08:15→20:01)
--- NOTE | 2019-04-05 09:00 | NUR ---
Pt came back from recyclable materials distributor at 0900, right radial approach used. Sedatives given during procedure, nitro drip D/C. No stent was placed, mitral valve problem will deferred to [facility].
[2019-04-05] MEDS: aspirin 81mg tab.chew PO SCH (10:26)
[2019-04-05 11:00] VITALS: BP 164/78
--- NOTE | 2019-04-05 11:00 | NUR ---
PC Dr. Hoyos to confirm Nitro drip is discontinued, no PRN antihypertensive medication ordered per Dr. Hoyos, just wants to see how pt is doing without PRN meds.
[2019-04-05] MEDS ORDERED: proCHLORperazine 10 MG/2 ml inj IV PRN (12:15)
[2019-04-05] MEDS ORDERED: OXAZEpam 15mg capsule PO PRN (12:15)
--- NOTE | 2019-04-05 13:38 | NUR ---
PAGER ID: [phone] MESSAGE: ACCE 309 med reconciliation done. Afib RVR, pulses 130-140, failed cardio version ED x3.needs PO Lasix, amio or Cardizem drip.310: stress test done. Holding Cardizem drip running at 10 mls/hr since pulses are in the 70's. Jacklyn @ [id number]
[2019-04-05] MEDS ORDERED: nitroGLYCERIN-Tridil 50MG/D5W 250 ML IV SCH (14:50)
--- NOTE | 2019-04-05 16:35 | NUR ---
RN called Dr. Hoyos regarding Afib RVR in 140-160, Dr. Hoyos advised against amiodarone drip, state "absolutely not", ordered diltizem 60 mg PO TID. Addendum: 04/05/19 at 1837 by Jacklyn Santos RN wrong pt
[2019-04-05 16:49] LABS: ALBUMIN 3.2 G/DL (3.4-5.0); ANION GAP 15 (8-16); BLOOD UREA NITROGEN 74 MG/DL (7-18); BUN/CREATININE RATIO 23.1 (6.6-38.0); CALCIUM 9.3 MG/DL (8.5-10.1); CHLORIDE 106 MMOL/L (99-107); CREATININE 3.21 MG/DL (0.40-0.90); GLUCOSE 97 MG/DL (70-104); POTASSIUM 4.7 MMOL/L (3.5-5.1); SODIUM 136 MMOL/L (135-145); TOTAL CARBON DIOXIDE 15.3 MMOL/L (24-32); eGFR 14 ML/MIN
[2019-04-05 17:56] LABS: ABG BASE EXCESS -10.9 mmol/L (-2.0-3.0); ABG HCO3 12.9 mmol/L (22.0-26.0); ABG OXYGEN SATURATION 94.3 % (95-98); ABG PCO2 (T) 23.1 mmHg (35.0-45.0); ABG PH (T) 7.365 (7.350-7.450); ABG PO2 (T) 78.4 mmHg (83-108); ALLEN'S TEST Positive; FCOHb 0.5 % (0.5-1.5); FMetHb 0.3 % (0.3-1.12); FO2Hb 93.5 % (94-100); RESPIRATORY RATE (OBSERVED) 20 b/min; TOTAL HEMOGLOBIN 9.9 G/dl (12.0-16.0)
[2019-04-05 18:00] VITALS: BP 153/81
--- NOTE | 2019-04-05 18:00 | NUR ---
Problems reprioritized. Patient report given, questions answered & plan of care reviewed with CHE Quiles.
[2019-04-05] MEDS ORDERED: hydrALAZINE 20mg/ml inj. IV SCH (20:00)
[2019-04-05] MEDS: acetaminophen 325mg tablet PO PRN (20:01)
[2019-04-05] MEDS ORDERED: hydrALAZINE 20mg/ml inj. IV PRN (20:55)
[2019-04-05] MEDS: atorvastatin 20mg tablet PO SCH (21:26)
[2019-04-05 22:00] VITALS: BP 154/82
[2019-04-06] VITALS (8 sets, daily range): BP systolic 129–167; BP diastolic 62–85
--- NOTE | 2019-04-06 06:08 | NUR ---
gave report to CHE Guo
[2019-04-06] MEDS: amLODIPine 5mg tablet PO SCH (07:29)
[2019-04-06] MEDS: metoprolol tartrate 25mg tablet PO SCH ×2 (07:29→20:16)
[2019-04-06] MEDS: levoTHYROXINE 100mcg tablet PO SCH (07:30)
[2019-04-06] MEDS: predniSONE 5mg tablet PO SCH (07:30)
[2019-04-06] MEDS: ferrous sulfate 325mg tablet PO SCH (07:30)
[2019-04-06] MEDS: famotidine 20mg tablet PO SCH ×2 (07:30→20:16)
[2019-04-06] MEDS: aspirin 81mg tab.chew PO SCH (07:30)
[2019-04-06] MEDS: K and/or MAG REPLACEMENT MC SCH (08:00)
[2019-04-06] MEDS: sodium chloride 0.45% 1,000 ML IV SCH (08:10)
[2019-04-06] MEDS: isosorbide mononitrate 30mg tab.SR.24H PO SCH (09:18)
[2019-04-06 11:03] LABS: CLARITY,URINE CLOUDY (Clear); COLOR,URINE YELLOW (Yellow); GLUCOSE, URINE NEGATIVE (Neg); KETONES,URINE NEGATIVE (Neg); LEUKOCYTE ESTERASE ,URINE MODERATE (Neg); NITRITES, URINE NEGATIVE (Neg); OCCULT BLOOD,URINE TRACE-INTACT (Neg); PROTEIN,URINE 30 mg/dl (Neg); UROBILINOGEN,URINE 0.2 E.U/dL (0.2-1.0)
[2019-04-06 11:08] LABS: UA COLLECTION TYPE OTHER
[2019-04-06 11:09] LABS: BACTERIA,URINE 4+ /HPF (Neg); MUCUS STRANDS FEW /LPF (Neg); RBC,URINE NONE SEEN /HPF (0-2); SQUAMOUS EPITHELIAL CELL,UR FEW /LPF (FEW); WBC,URINE 0-4 /HPF (0-4)
--- NOTE | 2019-04-06 18:34 | NUR ---
Patient in room MED 308. I have received report from Sari BOLTON and had the opportunity to ask questions and assume patient care.Bedside report completed. chart check concern 1/2 NS maintaince fluids. new telephone orders/ read back Dr. Dailey discontinue 1/2 NS.
[2019-04-06] MEDS: atorvastatin 20mg tablet PO SCH (20:16)
[2019-04-07 02:00] VITALS: BP 130/85
[2019-04-07 05:23] LABS: BASOPHILS # (AUTO) 0.1 X10'3 (0-0.2); BASOPHILS % (AUTO) 1.2 % (0-1); EOSINOPHILS # (AUTO) 0.3 X10'3 (0-0.9); EOSINOPHILS % (AUTO) 3.1 % (0-6); HEMATOCRIT 25.8 % (35.0-45.0); HEMOGLOBIN 8.8 g/dl (12.0-16.0); LYMPHOCYTES # (AUTO) 1.8 X10'3 (1.1-4.8); LYMPHOCYTES % (AUTO) 21.8 % (21-51); MEAN CORPUSCULAR VOLUME 100.1 FL (78-98); MEAN PLATELET VOLUME 7.2 FL (7.4-10.4); MONOCYTES # (AUTO) 0.7 X10'3 (0-0.9); MONOCYTES % (AUTO) 8.6 % (2-12); NEUTROPHILS # (AUTO) 5.4 X10'3 (1.8-7.7); NEUTROPHILS % (AUTO) 65.3 % (42-75); PLATELET COUNT 165 X10'3 (140-440); RED BLOOD COUNT 2.57 X10'6 (4.20-5.60); RED CELL DISTRIBUTION WIDTH 14.6 % (11.5-14.5); WHITE BLOOD COUNT 8.3 X10'3 (4.5-11.0)
[2019-04-07 05:50] LABS: ALBUMIN 2.6 G/DL (3.4-5.0); ANION GAP 11 (8-16); BLOOD UREA NITROGEN 84 MG/DL (7-18); BUN/CREATININE RATIO 26.4 (6.6-38.0); CALCIUM 8.7 MG/DL (8.5-10.1); CHLORIDE 109 MMOL/L (99-107); CREATININE 3.18 MG/DL (0.40-0.90); GLUCOSE 78 MG/DL (70-104); MAGNESIUM 1.6 MG/DL (1.5-2.4); SODIUM 137 MMOL/L (135-145); TOTAL CARBON DIOXIDE 17.4 MMOL/L (24-32); eGFR 14 ML/MIN
[2019-04-07 06:00] VITALS: BP 159/83
--- NOTE | 2019-04-07 06:15 | NUR ---
Patient in room MED 308. I have received report from CHE Lord and had the opportunity to ask questions and assume patient care.
[2019-04-07] MEDS: levoTHYROXINE 100mcg tablet PO SCH (07:51)
[2019-04-07] MEDS: ferrous sulfate 325mg tablet PO SCH (07:51)
[2019-04-07] MEDS: famotidine 20mg tablet PO SCH ×2 (07:51→21:12)
[2019-04-07] MEDS: isosorbide mononitrate 30mg tab.SR.24H PO SCH (07:51)
[2019-04-07] MEDS: predniSONE 5mg tablet PO SCH (07:52)
[2019-04-07] MEDS: aspirin 81mg tab.chew PO SCH (07:52)
[2019-04-07] MEDS: amLODIPine 5mg tablet PO SCH (07:53)
[2019-04-07] MEDS: metoprolol tartrate 25mg tablet PO SCH ×2 (07:53→21:14)
[2019-04-07] MEDS: K and/or MAG REPLACEMENT MC SCH (08:00)
--- NOTE | 2019-04-07 10:33 | NUR ---
Requesting new PIV or extended PIV for patient in room 308 ACCE unit. Nia Chavarria Thank you, CHE Coats.
[2019-04-07 11:00] VITALS: BP 136/71
[2019-04-07] MEDS: CefTRIAXone/D5W-Rocephin 1gm 50 ML IV SCH (11:51)
[2019-04-07] MEDS: sodium bicarbonate (8.4%) inj. 75 MEQ in dextrose 5% water 500ml 500 ML IV SCH ×2 (11:52→21:12)
--- NOTE | 2019-04-07 14:33 | NUR ---
Patient ChavarriaNia room 308B orders for renal US. ETA? Thank you, Yolette Coats RN [id number]
[2019-04-07 15:00] VITALS: BP 150/85
[2019-04-07 18:00] VITALS: BP 138/77
--- NOTE | 2019-04-07 18:12 | NUR ---
Patient in room MED 308. I have received report from Gabriel BOLTON and had the opportunity to ask questions and assume patient care. Bedside report completed. no distress noted. fall precaution implemented, education provided.
--- NOTE | 2019-04-07 18:15 | NUR ---
Problems reprioritized. Patient report given, questions answered & plan of care reviewed with CHE Lord.
[2019-04-07] MEDS: lactobacillus rhamnosus 10,000 MMU CELLS/CAPSULE PO SCH (21:12)
[2019-04-07] MEDS: atorvastatin 20mg tablet PO SCH (21:15)
[2019-04-07] MEDS: acetaminophen 325mg tablet PO PRN (21:15)
[2019-04-07 22:00] VITALS: BP 126/65
[2019-04-08] MEDS: sodium bicarbonate (8.4%) inj. 75 MEQ in dextrose 5% water 500ml 500 ML IV SCH ×3 (01:14→21:28)
[2019-04-08 02:49] VITALS: BP 139/80
[2019-04-08 06:00] VITALS: BP 127/91
--- NOTE | 2019-04-08 06:00 | NUR ---
I have received report from Ольга BOLTON and had the opportunity to ask questions and assume patient care.
--- NOTE | 2019-04-08 06:20 | NUR ---
Problems reprioritized. Patient report given, questions answered & plan of care reviewed with Sarkis BOLTON. Bedside report given
[2019-04-08] MEDS: predniSONE 5mg tablet PO SCH (07:51)
[2019-04-08] MEDS: levoTHYROXINE 100mcg tablet PO SCH (07:51)
[2019-04-08] MEDS: CefTRIAXone/D5W-Rocephin 1gm 50 ML IV SCH (07:51)
[2019-04-08] MEDS: ferrous sulfate 325mg tablet PO SCH (07:52)
[2019-04-08] MEDS: lactobacillus rhamnosus 10,000 MMU CELLS/CAPSULE PO SCH ×2 (07:52→20:03)
[2019-04-08] MEDS: aspirin 81mg tab.chew PO SCH (07:52)
[2019-04-08] MEDS: amLODIPine 5mg tablet PO SCH (07:52)
[2019-04-08] MEDS: famotidine 20mg tablet PO SCH ×2 (07:52→20:03)
[2019-04-08] MEDS: metoprolol tartrate 25mg tablet PO SCH ×2 (07:52→20:03)
[2019-04-08] MEDS: isosorbide mononitrate 30mg tab.SR.24H PO SCH (07:52)
[2019-04-08] MEDS: K and/or MAG REPLACEMENT MC SCH (08:00)
--- NOTE | 2019-04-08 08:19 | NUR ---
Received page for midline placement on patient in 308. Pt has a working piv that was placed yesterday by picc team via ultrasound guidance showing no signs of complications. After speaking with pts nurse Sarkis BOLTON he stated his concern was that in a few days there would be no one here to place a picc line in the patient once she comes out of surgery and they want to remove the central line. I advised Sarkis that they would be placing a central line in the patient for the surgery tomorrow and that the usual procedure is to remove the central line once a picc is in place, not in the reverse order. After speaking with charge weigher Yadira she advised Dr Zimmer did not want a line dropped in the patient. No midline to be placed, Sarkis BOLTON aware, I notified Sarkis if lab needs assistance with draws we could assist when paged. DENIZ BOLTON
--- NOTE | 2019-04-08 08:26 | NUR ---
I requested and extended or midline for this pt. due to lab not being able to draw blood and her needing to go to surgery. PICC nurse is refusing to place one due to the pt. getting a central line before surgery. The pt. will not have labs for two days before surgery and is a CKD pt.
[2019-04-08] MEDS ORDERED: cefazolin/dext.iso 2gm/50ml 50 ML IV ONE (08:40)
[2019-04-08] MEDS ORDERED: vancomycin/NS 1 GM ADD-VANTAGE 250 ML IV ONE (08:40)
[2019-04-08] MEDS ORDERED: gabapentin 400mg capsule PO ONE (08:40)
[2019-04-08] MEDS ORDERED: MALTODEXTRIN/FRUCTOSE 0.68 KCAL/ML LIQUID 296ML BOTTLE PO ONE (08:40)
[2019-04-08] MEDS ORDERED: cefazolin/dext.iso 2gm/50ml 100 ML IV ONE (09:00)
[2019-04-08] MEDS ORDERED: cefazolin/dext.iso 2gm/100ml 100 ML IV ONE (09:01)
[2019-04-08 11:00] VITALS: BP 151/72
--- NOTE | 2019-04-08 11:35 | NUR ---
308-Chavarria. Per Leo Pool please place Extended PIV for this pt. so we can get labs today and in the morning before surgery so we can correct anything needed. Thank You.
--- NOTE | 2019-04-08 14:23 | NUR ---
Ext. PIV line placed per Mirian KAUFFMAN.
[2019-04-08 14:33] LABS: BASOPHILS # (AUTO) 0.1 X10'3 (0-0.2); BASOPHILS % (AUTO) 0.7 % (0-1); EOSINOPHILS # (AUTO) 0.1 X10'3 (0-0.9); EOSINOPHILS % (AUTO) 1.5 % (0-6); HEMATOCRIT 25.6 % (35.0-45.0); HEMOGLOBIN 8.7 g/dl (12.0-16.0); LYMPHOCYTES # (AUTO) 0.7 X10'3 (1.1-4.8); LYMPHOCYTES % (AUTO) 9.3 % (21-51); MEAN CORPUSCULAR HEMOGLOBIN 34.1 PG (27.0-31.0); MEAN CORPUSCULAR HGB CONC 33.9 g/dL (33.0-36.5); MEAN CORPUSCULAR VOLUME 100.6 FL (78-98); MEAN PLATELET VOLUME 7.3 FL (7.4-10.4); MONOCYTES # (AUTO) 0.3 X10'3 (0-0.9); MONOCYTES % (AUTO) 4.5 % (2-12); NEUTROPHILS # (AUTO) 6.4 X10'3 (1.8-7.7); PLATELET COUNT 169 X10'3 (140-440); RED BLOOD COUNT 2.55 X10'6 (4.20-5.60); RED CELL DISTRIBUTION WIDTH 14.4 % (11.5-14.5); WHITE BLOOD COUNT 7.6 X10'3 (4.5-11.0)
[2019-04-08 14:42] LABS: ALBUMIN 2.7 G/DL (3.4-5.0); ANION GAP 9 (8-16); BLOOD UREA NITROGEN 71 MG/DL (7-18); BUN/CREATININE RATIO 22.1 (6.6-38.0); CALCIUM 8.3 MG/DL (8.5-10.1); CHLORIDE 106 MMOL/L (99-107); CREATININE 3.21 MG/DL (0.40-0.90); GLUCOSE 133 MG/DL (70-104); MAGNESIUM 1.5 MG/DL (1.5-2.4); POTASSIUM 4.9 MMOL/L (3.5-5.1); SODIUM 138 MMOL/L (135-145); TOTAL CARBON DIOXIDE 22.7 MMOL/L (24-32); eGFR 14 ML/MIN
[2019-04-08 15:00] VITALS: BP 136/67
[2019-04-08] MEDS: acetaminophen 325mg tablet PO PRN (16:43)
[2019-04-08 18:00] VITALS: BP 156/66
--- NOTE | 2019-04-08 18:00 | NUR ---
Problems reprioritized. Patient report given, questions answered & plan of care reviewed with CHE Prieto.
--- NOTE | 2019-04-08 18:10 | NUR ---
Patient in room MED 308. I have received report from CHE Thakkar and had the opportunity to ask questions and assume patient care. Patient is A&Ox3, CAMARENA and is appropriate. At this time she is sitting on side of bed eating dinner.
--- NOTE | 2019-04-08 18:17 | NUR ---
Orienteer documentation: I have reviewed and agree with all interventions, assessments performed and documented by Ariane BOLTON.
[2019-04-08] MEDS ORDERED: insulin regular, human 100 UNIT in normal saline 100ml IV soln 100 ML IV SCH ×2 (19:31)
[2019-04-08] MEDS ORDERED: dextrose 50%-water 50ml dispensing syringe IV PRN (19:35)
[2019-04-08] MEDS ORDERED: insulin glargine (Lantus) pen - multi-dose SQ PRN (19:35)
[2019-04-08] MEDS ORDERED: metoprolol tartrate 12.5mg (1/2 tablet) PO SCH (20:00)
[2019-04-08] MEDS: atorvastatin 20mg tablet PO SCH (20:03)
[2019-04-08] MEDS: mupirocin 2% ointment 22GM NS SCH (20:04)
[2019-04-08 22:00] VITALS: BP 144/74
[2019-04-09] VITALS (7 sets, daily range): BP systolic 129–161; BP diastolic 61–86
[2019-04-09 02:25] LABS: BASOPHILS % (AUTO) 0.6 % (0-1); EOSINOPHILS # (AUTO) 0.2 X10'3 (0-0.9); EOSINOPHILS % (AUTO) 2.6 % (0-6); HEMATOCRIT 25.8 % (35.0-45.0); HEMOGLOBIN 8.9 g/dl (12.0-16.0); LYMPHOCYTES # (AUTO) 1.6 X10'3 (1.1-4.8); LYMPHOCYTES % (AUTO) 19.2 % (21-51); MEAN CORPUSCULAR HEMOGLOBIN 34.5 PG (27.0-31.0); MEAN CORPUSCULAR HGB CONC 34.5 g/dL (33.0-36.5); MEAN CORPUSCULAR VOLUME 99.9 FL (78-98); MEAN PLATELET VOLUME 7.3 FL (7.4-10.4); MONOCYTES # (AUTO) 0.7 X10'3 (0-0.9); NEUTROPHILS # (AUTO) 5.7 X10'3 (1.8-7.7); NEUTROPHILS % (AUTO) 69.6 % (42-75); PLATELET COUNT 181 X10'3 (140-440); RED BLOOD COUNT 2.58 X10'6 (4.20-5.60); RED CELL DISTRIBUTION WIDTH 14.3 % (11.5-14.5); WHITE BLOOD COUNT 8.2 X10'3 (4.5-11.0)
[2019-04-09 02:33] LABS: ALBUMIN 2.9 G/DL (3.4-5.0); ANION GAP 11 (8-16); BLOOD UREA NITROGEN 73 MG/DL (7-18); BUN/CREATININE RATIO 23.3 (6.6-38.0); CALCIUM 8.5 MG/DL (8.5-10.1); CHLORIDE 104 MMOL/L (99-107); CREATININE 3.13 MG/DL (0.40-0.90); GLUCOSE 104 MG/DL (70-104); MAGNESIUM 1.5 MG/DL (1.5-2.4); POTASSIUM 4.8 MMOL/L (3.5-5.1); SODIUM 136 MMOL/L (135-145); TOTAL CARBON DIOXIDE 21.4 MMOL/L (24-32); eGFR 14 ML/MIN
[2019-04-09] MEDS: sodium bicarbonate (8.4%) inj. 75 MEQ in dextrose 5% water 500ml 500 ML IV SCH ×3 (03:24→21:45)
[2019-04-09] MEDS: mupirocin 2% ointment 22GM NS SCH (05:20)
--- NOTE | 2019-04-09 05:56 | NUR ---
Dr. Mailk is ill and surgery is canceled for today, possibly will happen tomorrow @ 0500.
[2019-04-09] MEDS ORDERED: famotidine 20mg tablet PO ONE (06:00)
[2019-04-09] MEDS ORDERED: LORazepam 2 mg/ml vial IV ONE (06:00)
--- NOTE | 2019-04-09 06:19 | NUR ---
Problems reprioritized. Patient report given, questions answered & plan of care reviewed with CHE Hanks.
--- NOTE | 2019-04-09 06:24 | NUR ---
Patient in room MED 308. I have received report from CHE Prieto and had the opportunity to ask questions and assume patient care.
[2019-04-09] MEDS: predniSONE 5mg tablet PO SCH (07:50)
[2019-04-09] MEDS: lactobacillus rhamnosus 10,000 MMU CELLS/CAPSULE PO SCH ×2 (07:50→20:33)
[2019-04-09] MEDS: aspirin 81mg tab.chew PO SCH (07:50)
[2019-04-09] MEDS: metoprolol tartrate 25mg tablet PO SCH ×2 (07:50→20:33)
[2019-04-09] MEDS: amLODIPine 5mg tablet PO SCH (07:50)
[2019-04-09] MEDS: levoTHYROXINE 100mcg tablet PO SCH (07:50)
[2019-04-09] MEDS: isosorbide mononitrate 30mg tab.SR.24H PO SCH (07:51)
[2019-04-09] MEDS: famotidine 20mg tablet PO SCH ×2 (07:51→20:33)
[2019-04-09] MEDS: ondansetron/PF 4mg/2ml inj IV PRN ×2 (07:51→21:45)
[2019-04-09] MEDS: ferrous sulfate 325mg tablet PO SCH (07:51)
[2019-04-09] MEDS ORDERED: MALTODEXTRIN/FRUCTOSE 0.68 KCAL/ML LIQUID 296ML BOTTLE PO ONE (08:00)
[2019-04-09] MEDS: K and/or MAG REPLACEMENT MC SCH (08:00)
[2019-04-09] MEDS ORDERED: gabapentin 400mg capsule PO ONE (08:00)
[2019-04-09] MEDS ORDERED: cefazolin/dext.iso 2gm/100ml 100 ML IV ONE ×2 (08:00→09:40)
[2019-04-09] MEDS: CefTRIAXone/D5W-Rocephin 1gm 50 ML IV SCH (08:03)
[2019-04-09] MEDS ORDERED: cefazolin/dext.iso 2gm/50ml 50 ML IV ONE (09:35)
[2019-04-09] MEDS ORDERED: vancomycin/NS 1 GM ADD-VANTAGE 250 ML IV ONE (09:35)
--- NOTE | 2019-04-09 14:34 | NUR ---
Initial: Pt admitted for chest pain r/t to CAD. Pt awaiting CABG tomorrow, will provide bedside education for CABG and Heart Healthy after surgery. Pt is eating well, PO intake avg 75% on most meals, meeting nutrient needs. Pt PO intake 25% this morning d/t nausea r/t medication. [facility] 04/08. Will continue to monitor. Rec: 1. Continue Heart Healthy diet 2. Provide education for CABG surgery and Heart Healthy diet 3. Bowel care as needed 4. Weight per rx Addendum: 04/09/19 at 1435 by Wing Dmitry FERRARI Amended: Links added.
--- NOTE | 2019-04-09 18:53 | NUR ---
Patient in room MED 308. I have received report from Latonya Mares and had the opportunity to ask questions and assume patient care.
--- NOTE | 2019-04-09 19:25 | NUR ---
Problems reprioritized. Patient report given, questions answered & plan of care reviewed with CHE Peña.
[2019-04-09] MEDS: atorvastatin 20mg tablet PO SCH (20:32)
[2019-04-10 02:00] VITALS: BP 118/82
[2019-04-10 04:14] LABS: BASOPHILS % (AUTO) 0.4 % (0-1); EOSINOPHILS # (AUTO) 0.2 X10'3 (0-0.9); EOSINOPHILS % (AUTO) 2.3 % (0-6); HEMATOCRIT 24.7 % (35.0-45.0); HEMOGLOBIN 8.2 g/dl (12.0-16.0); LYMPHOCYTES % (AUTO) 12.1 % (21-51); MEAN CORPUSCULAR HEMOGLOBIN 33.9 PG (27.0-31.0); MEAN CORPUSCULAR HGB CONC 33.3 g/dL (33.0-36.5); MEAN CORPUSCULAR VOLUME 101.8 FL (78-98); MEAN PLATELET VOLUME 7.2 FL (7.4-10.4); MONOCYTES # (AUTO) 0.5 X10'3 (0-0.9); MONOCYTES % (AUTO) 6.6 % (2-12); NEUTROPHILS # (AUTO) 6.4 X10'3 (1.8-7.7); NEUTROPHILS % (AUTO) 78.6 % (42-75); PLATELET COUNT 146 X10'3 (140-440); RED BLOOD COUNT 2.43 X10'6 (4.20-5.60); RED CELL DISTRIBUTION WIDTH 14.7 % (11.5-14.5); WHITE BLOOD COUNT 8.1 X10'3 (4.5-11.0)
[2019-04-10 04:25] LABS: ALBUMIN 2.5 G/DL (3.4-5.0); ANION GAP 6 (8-16); BLOOD UREA NITROGEN 64 MG/DL (7-18); BUN/CREATININE RATIO 21.4 (6.6-38.0); CALCIUM 8.2 MG/DL (8.5-10.1); CHLORIDE 105 MMOL/L (99-107); CREATININE 2.99 MG/DL (0.40-0.90); GLUCOSE 102 MG/DL (70-104); MAGNESIUM 1.6 MG/DL (1.5-2.4); POTASSIUM 5.3 MMOL/L (3.5-5.1); SODIUM 140 MMOL/L (135-145); TOTAL CARBON DIOXIDE 28.6 MMOL/L (24-32); eGFR 15 ML/MIN
[2019-04-10] MEDS ORDERED: insulin regular, human 100 UNIT in normal saline 100ml IV soln 100 ML IV SCH ×2 (05:30)
[2019-04-10 06:00] VITALS: BP 127/88
[2019-04-10] MEDS ORDERED: gabapentin 400mg capsule PO ONE ×2 (06:00→08:00)
[2019-04-10] MEDS ORDERED: cefazolin/dext.iso 2gm/100ml 100 ML IV ONE ×2 (06:00→08:00)
[2019-04-10] MEDS ORDERED: LORazepam 2 mg/ml vial IV ONE (06:00)
[2019-04-10] MEDS ORDERED: vancomycin/NS 1 GM ADD-VANTAGE 250 ML IV ONE (06:00)
[2019-04-10] MEDS ORDERED: famotidine 20mg tablet PO ONE (06:00)
--- NOTE | 2019-04-10 06:05 | NUR ---
Patient in room MED 308. I have received report from CHE Peña and had the opportunity to ask questions and assume patient care.
--- NOTE | 2019-04-10 06:41 | NUR ---
Problems reprioritized. Patient report given, questions answered & plan of care reviewed with Latonya Mares.
[2019-04-10] MEDS: K and/or MAG REPLACEMENT MC SCH (06:49)
[2019-04-10] MEDS: amLODIPine 5mg tablet PO SCH (08:02)
[2019-04-10] MEDS: lactobacillus rhamnosus 10,000 MMU CELLS/CAPSULE PO SCH ×2 (08:02→19:14)
[2019-04-10] MEDS: famotidine 20mg tablet PO SCH ×2 (08:02→19:14)
[2019-04-10] MEDS: predniSONE 5mg tablet PO SCH (08:02)
[2019-04-10] MEDS: isosorbide mononitrate 30mg tab.SR.24H PO SCH (08:02)
[2019-04-10] MEDS: levoTHYROXINE 100mcg tablet PO SCH (08:03)
[2019-04-10] MEDS: metoprolol tartrate 25mg tablet PO SCH ×2 (08:03→19:14)
[2019-04-10] MEDS: CefTRIAXone/D5W-Rocephin 1gm 50 ML IV SCH (08:03)
[2019-04-10] MEDS: ferrous sulfate 325mg tablet PO SCH (08:03)
[2019-04-10] MEDS: aspirin 81mg tab.chew PO SCH (08:03)
[2019-04-10] MEDS: sodium bicarbonate (8.4%) inj. 75 MEQ in dextrose 5% water 500ml 500 ML IV SCH ×2 (08:48→12:50)
[2019-04-10 11:00] VITALS: BP 115/59
[2019-04-10 15:00] VITALS: BP 114/64
--- NOTE | 2019-04-10 17:53 | NUR ---
Problems reprioritized. Patient report given, questions answered & plan of care reviewed with CHE Peña.
[2019-04-10 18:00] VITALS: BP 147/79
--- NOTE | 2019-04-10 18:24 | NUR ---
I have reviewed and agree with all interventions, assessments performed and documented by CHE Thakkar
[2019-04-10] MEDS: atorvastatin 20mg tablet PO SCH (21:05)
[2019-04-10 22:00] VITALS: BP 152/73
[2019-04-11] VITALS (21 sets, daily range): BP systolic 97–154; BP diastolic 41–75
[2019-04-11] MEDS ORDERED: insulin regular, human 100 UNIT in normal saline 100ml IV soln 100 ML IV SCH ×2 (03:17)
[2019-04-11] MEDS ORDERED: dextrose 50%-water 50ml dispensing syringe IV PRN ×2 (03:20→14:45)
[2019-04-11] MEDS ORDERED: MALTODEXTRIN/FRUCTOSE 0.68 KCAL/ML LIQUID 296ML BOTTLE PO ONE (03:20)
[2019-04-11] MEDS ORDERED: insulin glargine (Lantus) pen - multi-dose SQ PRN (03:20)
[2019-04-11] MEDS ORDERED: ROPIVAcaine 0.5% (5mg/ml) 30ml vial ONE (05:11)
[2019-04-11 05:20] LABS: BASOPHILS # (AUTO) 0.1 X10'3 (0-0.2); EOSINOPHILS # (AUTO) 0.2 X10'3 (0-0.9); EOSINOPHILS % (AUTO) 2.8 % (0-6); HEMATOCRIT 23.5 % (35.0-45.0); HEMOGLOBIN 8.2 g/dl (12.0-16.0); LYMPHOCYTES # (AUTO) 1.6 X10'3 (1.1-4.8); LYMPHOCYTES % (AUTO) 20.7 % (21-51); MEAN CORPUSCULAR HEMOGLOBIN 34.2 PG (27.0-31.0); MEAN CORPUSCULAR HGB CONC 34.7 g/dL (33.0-36.5); MEAN CORPUSCULAR VOLUME 98.4 FL (78-98); MEAN PLATELET VOLUME 6.8 FL (7.4-10.4); MONOCYTES # (AUTO) 0.7 X10'3 (0-0.9); MONOCYTES % (AUTO) 9.1 % (2-12); NEUTROPHILS # (AUTO) 5.2 X10'3 (1.8-7.7); NEUTROPHILS % (AUTO) 66.4 % (42-75); PLATELET COUNT 162 X10'3 (140-440); RED BLOOD COUNT 2.39 X10'6 (4.20-5.60); RED CELL DISTRIBUTION WIDTH 14.3 % (11.5-14.5); WHITE BLOOD COUNT 7.9 X10'3 (4.5-11.0)
[2019-04-11 05:27] LABS: ALBUMIN 2.7 G/DL (3.4-5.0); ANION GAP 7 (8-16); BLOOD UREA NITROGEN 64 MG/DL (7-18); BUN/CREATININE RATIO 19.3 (6.6-38.0); CALCIUM 8.6 MG/DL (8.5-10.1); CHLORIDE 104 MMOL/L (99-107); CREATININE 3.32 MG/DL (0.40-0.90); GLUCOSE 81 MG/DL (70-104); MAGNESIUM 1.7 MG/DL (1.5-2.4); POTASSIUM 4.8 MMOL/L (3.5-5.1); SODIUM 139 MMOL/L (135-145); TOTAL CARBON DIOXIDE 28.2 MMOL/L (24-32); eGFR 13 ML/MIN
[2019-04-11] MEDS ORDERED: mupirocin 2% nasal ointment 1gm UD NS STA (05:29)
[2019-04-11] MEDS ORDERED: gabapentin 400mg capsule PO ONE (06:00)
[2019-04-11] MEDS ORDERED: famotidine 20mg tablet PO ONE (06:00)
[2019-04-11] MEDS ORDERED: vancomycin/NS 1 GM ADD-VANTAGE 250 ML IV ONE (06:00)
[2019-04-11] MEDS ORDERED: cefazolin/dext.iso 2gm/100ml 100 ML IV ONE (06:00)
[2019-04-11] MEDS ORDERED: LORazepam 2 mg/ml vial IV ONE (06:00)
[2019-04-11] MEDS ORDERED: insulin regular, human 10 units/0.1 ml syringe IV ONE (06:00)
--- NOTE | 2019-04-11 06:34 | NUR ---
Problems reprioritized. Patient report given, questions answered & plan of care reviewed with Latonya Mares.
--- NOTE | 2019-04-11 06:41 | NUR ---
Patient in room MED 308. I have received report from CHE Peña and had the opportunity to ask questions and assume patient care.
[2019-04-11] MEDS ORDERED: SUFENTANIL CITRATE 50 MCG/ML 2ml ampule IV ONE (06:58)
[2019-04-11] MEDS ORDERED: etomidate 2mg/ml inj. ONE (06:59)
[2019-04-11] MEDS ORDERED: rocuronium 10mg/ml inj IV ONE ×3 (06:59→09:51)
[2019-04-11] MEDS ORDERED: albumin (Human) 5% 250ml 250 ML IV ONE ×2 (06:59)
[2019-04-11] MEDS ORDERED: MIDAZolam 5mg/5ml vial ONE (06:59)
[2019-04-11] MEDS ORDERED: sevoflurane 250ml liquid IH ONE (07:00)
[2019-04-11] MEDS ORDERED: phenylephrine 10mg/ml inj. ONE ×2 (07:02→08:00)
[2019-04-11] MEDS ORDERED: calcium chloride 100 MG/1 ML inj IV ONE (08:00)
[2019-04-11] MEDS ORDERED: heparin 10,000 units/1 ML INJ ONE (08:00)
[2019-04-11] MEDS ORDERED: aminocaproic acid 250 MG/1 ML inj. ONE (08:00)
[2019-04-11] MEDS ORDERED: methylPREDNISolone sod. succ. 500mg inj ONE (08:00)
[2019-04-11] MEDS ORDERED: sodium bicarbonate (8.4%) 1 mEq/ml syringe ONE (08:00)
[2019-04-11] MEDS ORDERED: potassium Cl 2 mEq/ml inj IV ONE (08:00)
[2019-04-11] MEDS ORDERED: LIDOcaine 2% (20 mg/ml) 5ml cardiac syringe ONE (08:00)
[2019-04-11] MEDS ORDERED: papaverine 30 mg/ml 2ml inj. ONE (08:00)
[2019-04-11] MEDS ORDERED: albumin (human) 25% 100 ML IV solution IV ONE (08:00)
[2019-04-11 08:46] LABS: ABG BASE EXCESS VENOUS 4.1 mmol/L; ABG HCO3 VENOUS 29.9 mmol/L; ABG PCO2 VENOUS 53.6 mmHg; ABG PO2 VENOUS 45.8 mmHg; CL (ABG) 105 mmol/L (99-107); FCOHb VENOUS 1.8 %; FHHb VENOUS 21.1 %; FO2Hb VENOUS 77.1 %; GLUCOSE (ABG) 88 mg/dl (70-104); K (ABG) 3.8 mmol/L (3.3-5.1); NA (ABG) 133 mmol/L (135-145)
[2019-04-11 09:31] LABS: ABG BASE EXCESS -0.7 mmol/L (-2.0-3.0); ABG HCO3 24.8 mmol/L (22.0-26.0); ABG PCO2 45.9 mmHg (35.0-45.0); ABG PH 7.351 (7.350-7.450); ABG PO2 202.4 mmHg (60.0-100.0); CL (ABG) 103 mmol/L (99-107); FCOHb 1.4 % (0.5-1.5); FMetHb 0.5 % (0.3-1.12); FO2Hb 97.1 % (94-100); GLUCOSE (ABG) 81 mg/dl (70-104); K (ABG) 3.9 mmol/L (3.3-5.1); NA (ABG) 136 mmol/L (135-145); TOTAL HEMOGLOBIN 6.8 G/dl (12.0-16.0)
[2019-04-11 10:00] LABS: ABG BASE EXCESS VENOUS 0.6 mmol/L; ABG HCO3 VENOUS 25.8 mmol/L; ABG PCO2 VENOUS 45.1 mmHg; ABG PO2 VENOUS 77.3 mmHg; CL (ABG) 101 mmol/L (99-107); FCOHb VENOUS 1.6 %; FHHb VENOUS 5.4 %; FMetHb VENOUS 0.7 %; FO2Hb VENOUS 92.3 %; GLUCOSE (ABG) 100 mg/dl (70-104); IONIZED CA (ABG) 0.92 mmol/L (1.03-1.32); K (ABG) 5.3 mmol/L (3.3-5.1); NA (ABG) 133 mmol/L (135-145)
[2019-04-11 10:05] LABS: ABG BASE EXCESS 2.4 mmol/L (-2.0-3.0); ABG HCO3 26.6 mmol/L (22.0-26.0); ABG OXYGEN SATURATION 99.3 % (95-98); ABG PCO2 39.4 mmHg (35.0-45.0); ABG PH 7.447 (7.350-7.450); ABG PO2 544.1 mmHg (60.0-100.0); CL (ABG) 101 mmol/L (99-107); FCOHb 1.2 % (0.5-1.5); FMetHb 0.6 % (0.3-1.12); FO2Hb 97.5 % (94-100); GLUCOSE (ABG) 98 mg/dl (70-104); IONIZED CA (ABG) 0.92 mmol/L (1.03-1.32); K (ABG) 5.1 mmol/L (3.3-5.1); NA (ABG) 132 mmol/L (135-145)
[2019-04-11] MEDS ORDERED: heparin 10,000 units/1 ML INJ IR ONE (10:21)
[2019-04-11] MEDS ORDERED: papaverine 30 mg/ml 2ml inj. IA ONE (10:23)
[2019-04-11 10:35] LABS: ABG BASE EXCESS 0.9 mmol/L (-2.0-3.0); ABG HCO3 24.6 mmol/L (22.0-26.0); ABG OXYGEN SATURATION 99.3 % (95-98); ABG PCO2 34.7 mmHg (35.0-45.0); ABG PH 7.468 (7.350-7.450); ABG PO2 365.9 mmHg (60.0-100.0); CL (ABG) 102 mmol/L (99-107); FCOHb 1.1 % (0.5-1.5); FMetHb 0.7 % (0.3-1.12); FO2Hb 97.5 % (94-100); GLUCOSE (ABG) 106 mg/dl (70-104); IONIZED CA (ABG) 0.93 mmol/L (1.03-1.32); NA (ABG) 132 mmol/L (135-145); TOTAL HEMOGLOBIN 7.4 G/dl (12.0-16.0)
[2019-04-11 11:10] LABS: ABG BASE EXCESS 0.2 mmol/L (-2.0-3.0); ABG HCO3 25.1 mmol/L (22.0-26.0); ABG OXYGEN SATURATION 99.1 % (95-98); ABG PCO2 41.7 mmHg (35.0-45.0); ABG PH 7.397 (7.350-7.450); ABG PO2 360.3 mmHg (60.0-100.0); CL (ABG) 102 mmol/L (99-107); FCOHb 0.5 % (0.5-1.5); FMetHb 0.5 % (0.3-1.12); FO2Hb 98.1 % (94-100); GLUCOSE (ABG) 120 mg/dl (70-104); IONIZED CA (ABG) 0.98 mmol/L (1.03-1.32); K (ABG) 5.1 mmol/L (3.3-5.1); NA (ABG) 133 mmol/L (135-145); TOTAL HEMOGLOBIN 8.5 G/dl (12.0-16.0)
[2019-04-11 11:35] LABS: ABG BASE EXCESS -0.9 mmol/L (-2.0-3.0); ABG HCO3 23.8 mmol/L (22.0-26.0); ABG OXYGEN SATURATION 99.1 % (95-98); ABG PCO2 39.2 mmHg (35.0-45.0); ABG PH 7.401 (7.350-7.450); ABG PO2 352.7 mmHg (60.0-100.0); CL (ABG) 102 mmol/L (99-107); FCOHb 0.4 % (0.5-1.5); FMetHb 0.6 % (0.3-1.12); FO2Hb 98.1 % (94-100); GLUCOSE (ABG) 120 mg/dl (70-104); NA (ABG) 134 mmol/L (135-145); TOTAL HEMOGLOBIN 8.4 G/dl (12.0-16.0)
[2019-04-11 12:06] LABS: ABG BASE EXCESS 1.1 mmol/L (-2.0-3.0); ABG HCO3 24.4 mmol/L (22.0-26.0); ABG OXYGEN SATURATION 99.2 % (95-98); ABG PCO2 33.5 mmHg (35.0-45.0); ABG PH 7.481 (7.350-7.450); ABG PO2 399.9 mmHg (60.0-100.0); CL (ABG) 100 mmol/L (99-107); FCOHb 0.5 % (0.5-1.5); FMetHb 0.4 % (0.3-1.12); FO2Hb 98.3 % (94-100); GLUCOSE (ABG) 122 mg/dl (70-104); IONIZED CA (ABG) 1.13 mmol/L (1.03-1.32); K (ABG) 5.2 mmol/L (3.3-5.1); NA (ABG) 132 mmol/L (135-145); TOTAL HEMOGLOBIN 8.7 G/dl (12.0-16.0)
[2019-04-11] MEDS: lactobacillus rhamnosus 10,000 MMU CELLS/CAPSULE PO SCH (12:12)
[2019-04-11] MEDS: aspirin 81mg tab.chew PO SCH (12:12)
[2019-04-11] MEDS: levoTHYROXINE 100mcg tablet PO SCH (12:12)
[2019-04-11] MEDS: predniSONE 5mg tablet PO SCH (12:12)
[2019-04-11] MEDS: amLODIPine 5mg tablet PO SCH (12:12)
[2019-04-11] MEDS: metoprolol tartrate 25mg tablet PO SCH (12:12)
[2019-04-11] MEDS: famotidine 20mg tablet PO SCH (12:12)
[2019-04-11] MEDS: CefTRIAXone/D5W-Rocephin 1gm 50 ML IV SCH (12:12)
[2019-04-11] MEDS: isosorbide mononitrate 30mg tab.SR.24H PO SCH (12:12)
[2019-04-11] MEDS: ferrous sulfate 325mg tablet PO SCH (12:12)
[2019-04-11 13:36] LABS: ABG BASE EXCESS VENOUS -1.4 mmol/L; ABG HCO3 VENOUS 22.8 mmol/L; ABG PCO2 VENOUS 35.4 mmHg; ABG PO2 VENOUS 39.3 mmHg; CL (ABG) 100 mmol/L (99-107); FCOHb VENOUS 1.2 %; FHHb VENOUS 23.1 %; FMetHb VENOUS 0.7 %; GLUCOSE (ABG) 174 mg/dl (70-104); IONIZED CA (ABG) 0.87 mmol/L (1.03-1.32); K (ABG) 5.3 mmol/L (3.3-5.1); NA (ABG) 135 mmol/L (135-145); TOTAL HEMOGLOBIN 8.3 G/dl (12.0-16.0)
--- NOTE | 2019-04-11 13:46 | NUR ---
Reassessment: Pt in OR today for CABG, to provide bedside education for CABG and Heart Healthy diet education once stable post op. PO intake avg 75-100% on heart healthy diet, meeting nutrient needs. [facility] 04/08. Will continue to monitor. Rec: 1. Continue Heart Healthy diet 2. Provide education for CABG surgery and Heart Healthy diet once stable prior to discharge 3. Bowel care as needed 4. Weight per rx Addendum: 04/11/19 at 1347 by Wing Dmitry FERRARI Amended: Links added. Addendum: 04/11/19 at [address] VONDA Alfaro
[2019-04-11 13:56] LABS: ABG BASE EXCESS VENOUS -3.1 mmol/L; ABG PCO2 VENOUS 39.4 mmHg; ABG PO2 VENOUS 36.9 mmHg; CL (ABG) 103 mmol/L (99-107); FCOHb VENOUS 1.6 %; FHHb VENOUS 30.6 %; FMetHb VENOUS 1.2 %; FO2Hb VENOUS 66.6 %; GLUCOSE (ABG) 173 mg/dl (70-104); IONIZED CA (ABG) 0.91 mmol/L (1.03-1.32); K (ABG) 5.2 mmol/L (3.3-5.1); NA (ABG) 135 mmol/L (135-145)
[2019-04-11] MEDS ORDERED: nitroGLYCERIN-Tridil 50MG/D5W 250 ML IV PRN (14:42)
[2019-04-11] MEDS ORDERED: niCARDipine-NS 40mg/200ml IVPB 200 ML IV PRN (14:42)
[2019-04-11] MEDS ORDERED: DOPamine 400mg/D5W 250ml 250 ML IV PRN (14:42)
[2019-04-11] MEDS ORDERED: magnesium hydroxide 30ml (MOM) UD suspension PO PRN (14:45)
[2019-04-11] MEDS ORDERED: pantoprazole 40 MG vial IV ONE (14:45)
[2019-04-11] MEDS ORDERED: sodium phosphate inj. 30 MMOL in dextrose 5%-water 250 ML IV PRN (14:45)
[2019-04-11] MEDS ORDERED: albumin (Human) 5% 250ml 250 ML IV PRN (14:45)
[2019-04-11] MEDS ORDERED: normal saline 250ml IV soln 250 ML IV PRN (14:45)
[2019-04-11] MEDS ORDERED: acetaminophen 325mg tablet PO PRN (14:45)
[2019-04-11] MEDS ORDERED: sodium phosphate inj. 15 MMOL in dextrose 5%-water 150 ML IV PRN (14:45)
[2019-04-11] MEDS ORDERED: metoclopramide 5 mg/ml inj IV PRN (14:45)
[2019-04-11] MEDS ORDERED: morphine 4 MG/ML inj SYRINge IV PRN ×2 (14:45)
[2019-04-11] MEDS ORDERED: magnesium 4gm in 100ml NS 100 ML IV PRN (14:45)
[2019-04-11] MEDS ORDERED: potassium Cl 20 mEq SR tablet PO PRN (14:45)
[2019-04-11] MEDS ORDERED: Neutra Phos packet PO PRN (14:45)
[2019-04-11] MEDS ORDERED: ondansetron/PF 4mg/2ml inj IV PRN (14:45)
[2019-04-11] MEDS ORDERED: HYDROcodone/acetaminophen 10/325mg tab PO PRN (14:45)
[2019-04-11] MEDS ORDERED: potassium Cl 20mEq/100mL bag 100 ML IV PRN (14:45)
[2019-04-11] MEDS ORDERED: magnesium 2GM in 50ml NS 50 ML IV PRN (14:45)
--- NOTE | 2019-04-11 14:48 | NUR ---
Received to room 2013, accompanied by MDs and surgical crew. Placed on ventilator 80%, to cardiac rehab nurse, arterial line and PA line pressure monitored. Chest tubes to suction at 20 cm. Urine cath to gravity drainage. Dressings are dry and intact. See assessment record. All vasoactive drugs are infusing via central line.
[2019-04-11 15:11] LABS: ABG BASE EXCESS -4.1 mmol/L (-2.0-3.0); ABG HCO3 20.8 mmol/L (22.0-26.0); ABG PCO2 (T) 34.7 mmHg (35.0-45.0); ABG PH (T) 7.389 (7.350-7.450); ABG PO2 (T) 70.7 mmHg (83-108); FCOHb 0.3 % (0.5-1.5); FMetHb 0.2 % (0.3-1.12); FO2Hb 94.5 % (94-100); MINUTE VOLUME 9 L/min; PATIENT TEMPERATURE 35.6; PEEP 5 cm H2O; RESPIRATORY RATE 12 b/min; RESPIRATORY RATE (OBSERVED) 12 b/min; TIDAL VOLUME 650 mL; TOTAL HEMOGLOBIN 8.3 G/dl (12.0-16.0)
[2019-04-11 15:22] LABS: BASOPHILS % (AUTO) 0.4 % (0-1); EOSINOPHILS % (AUTO) 0.5 % (0-6); HEMATOCRIT 22.2 % (35.0-45.0); HEMOGLOBIN 7.7 g/dl (12.0-16.0); LYMPHOCYTES # (AUTO) 0.7 X10'3 (1.1-4.8); LYMPHOCYTES % (AUTO) 7.7 % (21-51); MEAN CORPUSCULAR HEMOGLOBIN 31.1 PG (27.0-31.0); MEAN CORPUSCULAR HGB CONC 34.9 g/dL (33.0-36.5); MEAN CORPUSCULAR VOLUME 89.2 FL (78-98); MEAN PLATELET VOLUME 7.1 FL (7.4-10.4); MONOCYTES # (AUTO) 0.4 X10'3 (0-0.9); MONOCYTES % (AUTO) 4.3 % (2-12); NEUTROPHILS # (AUTO) 7.9 X10'3 (1.8-7.7); NEUTROPHILS % (AUTO) 87.1 % (42-75); PLATELET COUNT 63 X10'3 (140-440); RED BLOOD COUNT 2.49 X10'6 (4.20-5.60); RED CELL DISTRIBUTION WIDTH 15.8 % (11.5-14.5); WHITE BLOOD COUNT 9.1 X10'3 (4.5-11.0)
[2019-04-11 15:32] LABS: PARTIAL THROMBOPLASTIN TIME 45 SECONDS (22-32)
[2019-04-11 15:34] LABS: ALANINE AMINOTRANSFERASE 16 U/L (12-78); ALBUMIN 3.5 G/DL (3.4-5.0); ALBUMIN/GLOBULIN RATIO 2.3 (1.1-1.5); ALKALINE PHOSPHATASE 33 IU/L (46-116); ANION GAP 13 (8-16); ASPARTATE AMINO TRANSFERASE 56 U/L (10-37); BLOOD UREA NITROGEN 55 MG/DL (7-18); CALCIUM 7.6 MG/DL (8.5-10.1); CHLORIDE 105 MMOL/L (99-107); GLUCOSE 189 MG/DL (70-104); MAGNESIUM 2.2 MG/DL (1.5-2.4); PHOSPHORUS 5.4 MG/DL (2.3-4.5); POTASSIUM 5.5 MMOL/L (3.5-5.1); SODIUM 141 MMOL/L (135-145); TOTAL CARBON DIOXIDE 23.4 MMOL/L (24-32); eGFR 16 ML/MIN
[2019-04-11] MEDS: insulin regular, human inj. 100 UNITS in normal saline 100ml IV soln 100 ML IV SCH ×2 (15:51)
[2019-04-11] MEDS: sodium chloride 0.45% 1,000 ML IV SCH (15:56)
[2019-04-11] MEDS ORDERED: milrinone (Primacor) 20mg/D5W 100 ML IV PRN (15:58)
[2019-04-11] MEDS: ceFAZolin 1GM/D5W- ADD-VANTAGE 50 ML IV SCH ×2 (16:14→23:21)
[2019-04-11 16:32] LABS: ANISOCYTOSIS 1+; PLATELET ESTIMATE DECREASED; TOTAL CELLS COUNTED 100
[2019-04-11 16:35] LABS: BURR CELLS 1+; POLYCHROMASIA FEW; TOXIC GRANULATION 1+
[2019-04-11] MEDS ORDERED: NORepinephrine 8mg/ 250ml NS 250 ML IV PRN (17:15)
[2019-04-11] MEDS ORDERED: insulin Lispro (HumaLOG) vial - multi-dose SQ SCH (18:00)
--- NOTE | 2019-04-11 18:30 | NUR ---
Patient in room CICU 2013. I have received report from CHE Thakkar and had the opportunity to ask questions and assume patient care.
--- NOTE | 2019-04-11 18:37 | NUR ---
Problems reprioritized. Patient report given, questions answered & plan of care reviewed with Vicki De La Vega RN.
[2019-04-11] MEDS ORDERED: docusate sod 100mg capsule PO SCH (20:00)
[2019-04-11] MEDS: vancomycin/NS 1 GM ADD-VANTAGE 250 ML IV SCH (20:08)
[2019-04-11] MEDS: docusate sodium 100mg/10ml UD cup PO SCH (20:08)
[2019-04-11] MEDS: gabapentin 300mg capsule PO SCH (20:08)
[2019-04-11] MEDS: mupirocin 2% nasal ointment 1gm UD NS SCH (20:08)
--- NOTE | 2019-04-11 20:10 | NUR ---
Received report on pt in room 2013 from Suzan Thakkar. Pt is drowsy with sedation still clearing, following commands and moving all extremities. Pt is intubated at 70% FiO2 with O2 sats at 97%. All vasoactive drugs infusing via CVL per parameters. Insulin infusing via CVL per Insulin gtt protocol. Chest tubes to suction at 20 cm with serosanguinous output, symmetrical rise and fall of chest cavity with no crepitus noted, dressing are clean, dry, and intact. On emergency dispatch operator with arterial line, CVP, and PA line pressures monitored. Urostomy to gravity drainage with marginal urine output noted, MD aware - bowel sounds hypoactive. See assessment record.
[2019-04-11 21:16] LABS: BASOPHILS % (AUTO) 0.2 % (0-1); EOSINOPHILS % (AUTO) 0 % (0-6); HEMATOCRIT 24.4 % (35.0-45.0); HEMOGLOBIN 8.5 g/dl (12.0-16.0); LYMPHOCYTES # (AUTO) 0.2 X10'3 (1.1-4.8); LYMPHOCYTES % (AUTO) 2.4 % (21-51); MEAN CORPUSCULAR HEMOGLOBIN 30.2 PG (27.0-31.0); MEAN CORPUSCULAR HGB CONC 34.8 g/dL (33.0-36.5); MEAN CORPUSCULAR VOLUME 86.7 FL (78-98); MEAN PLATELET VOLUME 7.4 FL (7.4-10.4); MONOCYTES # (AUTO) 0.5 X10'3 (0-0.9); MONOCYTES % (AUTO) 4.8 % (2-12); NEUTROPHILS # (AUTO) 8.7 X10'3 (1.8-7.7); NEUTROPHILS % (AUTO) 92.6 % (42-75); PLATELET COUNT 190 X10'3 (140-440); RED BLOOD COUNT 2.81 X10'6 (4.20-5.60); RED CELL DISTRIBUTION WIDTH 15.9 % (11.5-14.5); WHITE BLOOD COUNT 9.4 X10'3 (4.5-11.0)
[2019-04-11 21:24] LABS: ALBUMIN 3.5 G/DL (3.4-5.0); ANION GAP 16 (8-16); BLOOD UREA NITROGEN 56 MG/DL (7-18); BUN/CREATININE RATIO 16.2 (6.6-38.0); CALCIUM 7.8 MG/DL (8.5-10.1); CHLORIDE 105 MMOL/L (99-107); CREATININE 3.45 MG/DL (0.40-0.90); GLUCOSE 156 MG/DL (70-104); MAGNESIUM 2.3 MG/DL (1.5-2.4); PHOSPHORUS 4.4 MG/DL (2.3-4.5); POTASSIUM 4.5 MMOL/L (3.5-5.1); SODIUM 142 MMOL/L (135-145); TOTAL CARBON DIOXIDE 21.4 MMOL/L (24-32); eGFR 13 ML/MIN
[2019-04-12] VITALS (28 sets, daily range): BP systolic 85–111; BP diastolic 43–67
[2019-04-12 03:25] LABS: BASOPHILS % (AUTO) 0.1 % (0-1); EOSINOPHILS % (AUTO) 0 % (0-6); HEMOGLOBIN 7.4 g/dl (12.0-16.0); LYMPHOCYTES # (AUTO) 0.4 X10'3 (1.1-4.8); LYMPHOCYTES % (AUTO) 4.3 % (21-51); MEAN CORPUSCULAR HEMOGLOBIN 30.3 PG (27.0-31.0); MEAN CORPUSCULAR HGB CONC 34.4 g/dL (33.0-36.5); MEAN CORPUSCULAR VOLUME 87.8 FL (78-98); MEAN PLATELET VOLUME 7.9 FL (7.4-10.4); MONOCYTES # (AUTO) 0.3 X10'3 (0-0.9); MONOCYTES % (AUTO) 4.3 % (2-12); NEUTROPHILS # (AUTO) 7.5 X10'3 (1.8-7.7); NEUTROPHILS % (AUTO) 91.3 % (42-75); PLATELET COUNT 129 X10'3 (140-440); RED BLOOD COUNT 2.46 X10'6 (4.20-5.60); RED CELL DISTRIBUTION WIDTH 16.5 % (11.5-14.5); WHITE BLOOD COUNT 8.2 X10'3 (4.5-11.0)
[2019-04-12 03:31] LABS: HEMATOCRIT 21.6 % (35.0-45.0)
[2019-04-12 03:32] LABS: ALANINE AMINOTRANSFERASE 24 U/L (12-78); ALBUMIN 3.1 G/DL (3.4-5.0); ALBUMIN/GLOBULIN RATIO 1.8 (1.1-1.5); ALKALINE PHOSPHATASE 31 IU/L (46-116); ANION GAP 13 (8-16); ASPARTATE AMINO TRANSFERASE 120 U/L (10-37); BILIRUBIN,TOTAL 0.5 MG/DL (0.1-1.0); BLOOD UREA NITROGEN 56 MG/DL (7-18); BUN/CREATININE RATIO 16.9 (6.6-38.0); CALCIUM 8.1 MG/DL (8.5-10.1); CHLORIDE 106 MMOL/L (99-107); CREATININE 3.32 MG/DL (0.40-0.90); GLUCOSE 137 MG/DL (70-104); MAGNESIUM 3.2 MG/DL (1.5-2.4); PHOSPHORUS 4.4 MG/DL (2.3-4.5); POTASSIUM 4.9 MMOL/L (3.5-5.1); SODIUM 142 MMOL/L (135-145); TOTAL CARBON DIOXIDE 22.7 MMOL/L (24-32); TOTAL PROTEIN 4.8 G/DL (6.4-8.2); eGFR 13 ML/MIN
[2019-04-12 03:36] LABS: ABG BASE EXCESS -2.3 mmol/L (-2.0-3.0); ABG HCO3 21.2 mmol/L (22.0-26.0); ABG OXYGEN SATURATION 94.5 % (95-98); ABG PCO2 (T) 30.7 mmHg (35.0-45.0); ABG PH (T) 7.457 (7.350-7.450); ABG PO2 (T) 72.6 mmHg (83-108); ALLEN'S TEST Positive; FCOHb 0.3 % (0.5-1.5); FMetHb 0.3 % (0.3-1.12); FO2Hb 93.9 % (94-100); MINUTE VOLUME 8 L/min; PATIENT TEMPERATURE 36.9; PEEP 5 cm H2O; RESPIRATORY RATE 12 b/min; RESPIRATORY RATE (OBSERVED) 12 b/min; TIDAL VOLUME 650 mL; TOTAL HEMOGLOBIN 8.1 G/dl (12.0-16.0)
[2019-04-12 03:51] LABS: PARTIAL THROMBOPLASTIN TIME 32 SECONDS (22-32)
[2019-04-12 05:00] LABS: ABG BASE EXCESS -4.5 mmol/L (-2.0-3.0); ABG HCO3 19.3 mmol/L (22.0-26.0); ABG OXYGEN SATURATION 94.7 % (95-98); ABG PCO2 (T) 30.3 mmHg (35.0-45.0); ABG PO2 (T) 75.2 mmHg (83-108); FCOHb 0.3 % (0.5-1.5); FMetHb 0.1 % (0.3-1.12); FO2Hb 94.3 % (94-100); MINUTE VOLUME 7 L/min; PATIENT TEMPERATURE 36.8; PEEP 5 cm H2O; RESPIRATORY RATE (OBSERVED) 12 b/min; TOTAL HEMOGLOBIN 8.9 G/dl (12.0-16.0)
--- NOTE | 2019-04-12 05:20 | NUR ---
After period of spontaneous breathing trial and weaning parameters, pt extubated to 4L NC with no complications.
--- NOTE | 2019-04-12 05:45 | NUR ---
Dr. Malik notified of critical Hct, no orders received.
--- NOTE | 2019-04-12 06:30 | NUR ---
Problems reprioritized. Patient report given, questions answered & plan of care reviewed with CHE Olsen.
[2019-04-12] MEDS: ceFAZolin 1GM/D5W- ADD-VANTAGE 50 ML IV SCH ×3 (07:59→23:46)
[2019-04-12] MEDS ORDERED: aspirin 325mg tablet, delayed-release (Ecotrin) PO SCH (08:00)
[2019-04-12] MEDS ORDERED: atorvastatin 10mg tablet PO SCH (08:00)
[2019-04-12] MEDS ORDERED: metoprolol tartrate 12.5mg (1/2 tablet) PO SCH (08:00)
[2019-04-12] MEDS: docusate sodium 100mg/10ml UD cup PO SCH ×2 (08:11→20:12)
[2019-04-12] MEDS: mupirocin 2% nasal ointment 1gm UD NS SCH ×2 (08:11→20:13)
[2019-04-12] MEDS: gabapentin 300mg capsule PO SCH ×3 (08:12→20:12)
[2019-04-12] MEDS: levoTHYROXINE 100mcg tablet PO SCH (08:13)
[2019-04-12] MEDS: vancomycin/NS 1 GM ADD-VANTAGE 250 ML IV SCH ×2 (09:03→20:13)
[2019-04-12 10:21] LABS: HEMOGLOBIN 8.6 g/dl (12.0-16.0); MEAN CORPUSCULAR HEMOGLOBIN 30.3 PG (27.0-31.0); MEAN CORPUSCULAR HGB CONC 34.4 g/dL (33.0-36.5); MEAN CORPUSCULAR VOLUME 88.1 FL (78-98); MEAN PLATELET VOLUME 8.3 FL (7.4-10.4); PLATELET COUNT 100 X10'3 (140-440); RED BLOOD COUNT 2.83 X10'6 (4.20-5.60); RED CELL DISTRIBUTION WIDTH 15.7 % (11.5-14.5); WHITE BLOOD COUNT 10.1 X10'3 (4.5-11.0)
--- NOTE | 2019-04-12 13:21 | NUR ---
patient given a unit of blood and levo turned off. Bp and CI decreased after about an hour. patient in a junctional rhythm; pacer turned on at 80BMP and BP and CI improved. MD nair
[2019-04-12] MEDS: HYDROcodone/acetaminophen 10/325mg tab PO PRN (14:19)
[2019-04-12] MEDS: insulin regular, human inj. 100 UNITS in normal saline 100ml IV soln 100 ML IV SCH ×2 (14:45)
--- NOTE | 2019-04-12 15:05 | NUR ---
[place] DC with no complications
--- NOTE | 2019-04-12 16:13 | NUR ---
Sheath removed per MD orders. Manual hold for 20 min; no bleeding or hematoma. Femstop applied. no complications
[2019-04-12] MEDS: atorvastatin 20mg tablet PO SCH (20:12)
[2019-04-13] VITALS (27 sets, daily range): BP systolic 83–114; BP diastolic 47–64
[2019-04-13 05:09] LABS: BASOPHILS % (AUTO) 0.1 % (0-1); EOSINOPHILS % (AUTO) 0 % (0-6); HEMATOCRIT 25.1 % (35.0-45.0); HEMOGLOBIN 8.6 g/dl (12.0-16.0); LYMPHOCYTES # (AUTO) 0.4 X10'3 (1.1-4.8); LYMPHOCYTES % (AUTO) 3.7 % (21-51); MEAN CORPUSCULAR HEMOGLOBIN 30.7 PG (27.0-31.0); MEAN CORPUSCULAR HGB CONC 34.4 g/dL (33.0-36.5); MEAN CORPUSCULAR VOLUME 89.4 FL (78-98); MEAN PLATELET VOLUME 8.7 FL (7.4-10.4); MONOCYTES # (AUTO) 0.6 X10'3 (0-0.9); MONOCYTES % (AUTO) 6.4 % (2-12); NEUTROPHILS # (AUTO) 8.9 X10'3 (1.8-7.7); NEUTROPHILS % (AUTO) 89.8 % (42-75); PLATELET COUNT 89 X10'3 (140-440); RED BLOOD COUNT 2.81 X10'6 (4.20-5.60); RED CELL DISTRIBUTION WIDTH 16.6 % (11.5-14.5); WHITE BLOOD COUNT 9.9 X10'3 (4.5-11.0)
[2019-04-13 05:17] LABS: ALBUMIN 3.1 G/DL (3.4-5.0); ANION GAP 15 (8-16); BLOOD UREA NITROGEN 65 MG/DL (7-18); BUN/CREATININE RATIO 15.8 (6.6-38.0); CALCIUM 8.3 MG/DL (8.5-10.1); CHLORIDE 105 MMOL/L (99-107); CREATININE 4.11 MG/DL (0.40-0.90); GLUCOSE 137 MG/DL (70-104); MAGNESIUM 3.1 MG/DL (1.5-2.4); PHOSPHORUS 8.6 MG/DL (2.3-4.5); POTASSIUM 5.7 MMOL/L (3.5-5.1); SODIUM 141 MMOL/L (135-145); TOTAL CARBON DIOXIDE 21.4 MMOL/L (24-32); eGFR 10 ML/MIN
[2019-04-13] MEDS ORDERED: sodium polystyrene sulfonate 15gm/60ml oral suspension PO ONE (07:00)
[2019-04-13] MEDS: gabapentin 300mg capsule PO SCH ×3 (08:00→13:00)
[2019-04-13] MEDS: docusate sodium 100mg/10ml UD cup PO SCH ×3 (08:00→20:33)
[2019-04-13] MEDS ORDERED: furosemide 40mg/4ml inj IV ONE (08:30)
[2019-04-13] MEDS: levoTHYROXINE 100mcg tablet PO SCH (08:37)
[2019-04-13] MEDS: mupirocin 2% nasal ointment 1gm UD NS SCH (08:37)
[2019-04-13] MEDS: pantoprazole 40mg Tablet.DR PO SCH (08:37)
[2019-04-13] MEDS: sevelamer carbonate 800mg tablet PO SCH ×3 (08:38→18:50)
--- NOTE | 2019-04-13 08:45 | NUR ---
dr bailey at bedside updated on pt current status, and lab values. pacer turned off by dr bailey, underlying rythym is accelerated junctional. plan is to leave off, and monitor tolerance.
--- NOTE | 2019-04-13 10:00 | NUR ---
working with physical therapy, returned to bed post, bp low, pacer turned back on at 1024 slight improvement in SBP and MAP. 1100 MAP remains below 65, call placed to dr bailey, and same is updated, orders to monitor for now, and trend.
--- NOTE | 2019-04-13 11:28 | NUR ---
F/u: Pt seen by RD for written/verbal CABG/HH diet eds w/ RD contact information provided. Pt reports lower appetite recently and is agreeable to chocolate aster RAMESH; notified. Pending verification prior to sending on trays. Will continue to monitor. Addendum: 04/13/19 at [address] Amended: Links added.
[2019-04-13] MEDS: lactose-reduced food (Ensure Enlive) - 237ml bottle PO SCH ×2 (13:00→19:00)
--- NOTE | 2019-04-13 15:25 | NUR ---
Patient in room CICU 2012. I have received report from warehouse supervisor 3rd shift nurse and had the opportunity to ask questions and assume patient care.
[2019-04-13] MEDS: acetaminophen 325mg tablet PO PRN (16:18)
[2019-04-13] MEDS ORDERED: MESSAGE TO PHARMACY PO ONE (18:00)
[2019-04-13] MEDS ORDERED: dextrose 50%-water 50ml dispensing syringe IV PRN ×2 (18:00)
[2019-04-13] MEDS ORDERED: dextrose ORAL solution 15 GM/59 ML bottle PO PRN ×2 (18:00)
[2019-04-13] MEDS ORDERED: glucagon, human recombinant 1mg kit SUBCUT PRN (18:00)
[2019-04-13 18:29] LABS: PHOSPHORUS 8.9 MG/DL (2.3-4.5); POTASSIUM 4.9 MMOL/L (3.5-5.1)
--- NOTE | 2019-04-13 18:45 | NUR ---
Problems reprioritized. Patient report given, questions answered & plan of care reviewed with fish hatchery superintendent rn.
[2019-04-13] MEDS: sodium chloride 0.45% 1,000 ML IV SCH (19:00)
--- NOTE | 2019-04-13 19:29 | NUR ---
1830:Patient in room CICU 2012. I have received report from Jennifer BOLTON and had the opportunity to ask questions and assume patient care. Pt up to chair, denies pain. Stating to eat breakfast. Sats 97% on 4LNC. 1928: Pt appetite poor, refuse dinner but ate 2 cups of sugar free jello and swallowed PO medication without issue. Requested to stay up in chair for a little while longer. Will continue to monitor.
--- NOTE | 2019-04-13 19:35 | NUR ---
Late entry@1935: Assisted patient back to bed from chair with moderate 2 person assist. Patient did not complain of dizziness but was fatigued with effort of standing and transfer to the bed. Required multiple reminders to use sternal precautions but was returned to bed without incident.
[2019-04-13] MEDS: atorvastatin 20mg tablet PO SCH (20:34)
[2019-04-13] MEDS: insulin glargine (Lantus) pen - multi-dose SQ SCH (20:38)
[2019-04-14] VITALS (24 sets, daily range): BP systolic 92–125; BP diastolic 38–72
--- NOTE | 2019-04-14 03:28 | NUR ---
Patient appears to be sleeping, vitals signs stable, sats:96% on 4LNC. Chest tube output 10mL for 0300, serosanguineous. Urostomy output 30mL for 0300 of clear, pale yellow colored urine
[2019-04-14 04:33] LABS: BASOPHILS % (AUTO) 0.4 % (0-1); EOSINOPHILS % (AUTO) 0 % (0-6); HEMATOCRIT 25.6 % (35.0-45.0); HEMOGLOBIN 8.5 g/dl (12.0-16.0); LYMPHOCYTES # (AUTO) 0.4 X10'3 (1.1-4.8); LYMPHOCYTES % (AUTO) 3.7 % (21-51); MEAN CORPUSCULAR HEMOGLOBIN 30.1 PG (27.0-31.0); MEAN CORPUSCULAR HGB CONC 33.3 g/dL (33.0-36.5); MEAN CORPUSCULAR VOLUME 90.5 FL (78-98); MEAN PLATELET VOLUME 9.1 FL (7.4-10.4); MONOCYTES # (AUTO) 0.7 X10'3 (0-0.9); MONOCYTES % (AUTO) 6.6 % (2-12); NEUTROPHILS % (AUTO) 89.3 % (42-75); PLATELET COUNT 73 X10'3 (140-440); RED BLOOD COUNT 2.83 X10'6 (4.20-5.60); RED CELL DISTRIBUTION WIDTH 16.4 % (11.5-14.5); WHITE BLOOD COUNT 11.2 X10'3 (4.5-11.0)
[2019-04-14 04:57] LABS: ANION GAP 14 (8-16); BLOOD UREA NITROGEN 89 MG/DL (7-18); BUN/CREATININE RATIO 18.4 (6.6-38.0); CALCIUM 7.7 MG/DL (8.5-10.1); CHLORIDE 102 MMOL/L (99-107); CREATININE 4.85 MG/DL (0.40-0.90); GLUCOSE 111 MG/DL (70-104); MAGNESIUM 3.1 MG/DL (1.5-2.4); PHOSPHORUS 8.6 MG/DL (2.3-4.5); SODIUM 140 MMOL/L (135-145); TOTAL CARBON DIOXIDE 23.8 MMOL/L (24-32); eGFR 9 ML/MIN
[2019-04-14 05:15] LABS: ACTIVATED CLOTTING TIME 153 SEC (101-148)
[2019-04-14 05:15] LABS: ACTIVATED CLOTTING TIME 115 SEC (101-148)
[2019-04-14 05:15] LABS: ACT @ 1.70 U 329 SEC (193-297); ACT @ 2.84 U 476 SEC (260-420); BASELINE ACT 125 SEC (101-148); PATIENT WEIGHT 81.0k KG
--- NOTE | 2019-04-14 06:18 | NUR ---
Problems reprioritized. Patient report given, questions answered & plan of care reviewed with Jennifer BOLTON.
--- NOTE | 2019-04-14 08:00 | NUR ---
CT dc by giovanni Chase intact. pt up to chair with two person assist, at 0830
[2019-04-14] MEDS: levoTHYROXINE 100mcg tablet PO SCH (08:58)
[2019-04-14] MEDS: pantoprazole 40mg Tablet.DR PO SCH (08:58)
[2019-04-14] MEDS: docusate sodium 100mg/10ml UD cup PO SCH (08:59)
[2019-04-14] MEDS: aspirin 81mg tablet.DR PO SCH (08:59)
[2019-04-14] MEDS: sevelamer carbonate 800mg tablet PO SCH ×3 (08:59→18:51)
[2019-04-14 09:05] LABS: TOTAL HEMOGLOBIN 6.9 G/dl (12.0-16.0)
[2019-04-14 09:06] LABS: TOTAL HEMOGLOBIN 6.5 G/dl (12.0-16.0)
[2019-04-14 09:06] LABS: TOTAL HEMOGLOBIN 6.6 G/dl (12.0-16.0)
[2019-04-14 09:07] LABS: TOTAL HEMOGLOBIN 5.8 G/dl (12.0-16.0)
[2019-04-14] MEDS ORDERED: LIDOcaine 1%/PF 5ML 10 MG/ML VIAL SQ ONE (10:55)
[2019-04-14] MEDS ORDERED: heparin 1,000 units/ml 10ml inj ICATH ONE (10:55)
[2019-04-14] MEDS ORDERED: fentaNYL/PF 50MCG/1 ML 2ML syringe IV PRN (10:55)
[2019-04-14] MEDS ORDERED: fentaNYL/PF 50MCG/1 ML 2ML syringe ONE (11:22)
--- NOTE | 2019-04-14 11:30 | NUR ---
to IR for luis cath placement, via bed and monitor and RN in attendance
[2019-04-14] MEDS ORDERED: LIDOcaine 1%/PF 5ML 10 MG/ML VIAL ONE (11:33)
[2019-04-14] MEDS ORDERED: heparin 1,000unit/ml 10ml vial 10 ML ONE (11:33)
[2019-04-14] MEDS: lactose-reduced food (Ensure Enlive) - 237ml bottle PO SCH ×3 (13:00→18:00)
--- NOTE | 2019-04-14 13:00 | NUR ---
Patient in room CICU 2012. I have received report from rn shift mgr RN and had the opportunity to ask questions and assume patient care.
[2019-04-14] MEDS ORDERED: heparin 1,000unit/ml 10ml vial 10 ML IV ONE (14:20)
[2019-04-14] MEDS ORDERED: albumin (human) 25% 100ml IV 100 ML IV PRN (14:20)
[2019-04-14] MEDS ORDERED: epoetin 20,000 units/ml inj IV ONE (14:20)
[2019-04-14] MEDS ORDERED: heparin 1,000 units/ml 10ml inj IV ONE (14:20)
[2019-04-14] MEDS ORDERED: heparin 1,000 units/ml 10ml inj HE ONE ×2 (14:25)
[2019-04-14] MEDS: insulin Lispro (HumaLOG) vial - multi-dose SQ SCH ×2 (14:44→19:42)
--- NOTE | 2019-04-14 18:31 | NUR ---
Patient in room CICU 2013. I have received report from Anabella BOLTON and had the opportunity to ask questions and assume patient care.
[2019-04-14] MEDS: docusate sod 100mg capsule PO SCH (20:11)
[2019-04-14] MEDS: atorvastatin 20mg tablet PO SCH (20:11)
[2019-04-14] MEDS: insulin glargine (Lantus) pen - multi-dose SQ SCH (21:00)
--- NOTE | 2019-04-14 22:03 | NUR ---
Held Lantus because patient's BG is 88 and when asked if she typically takes Lantus at home she says no because she did not know that she was diabetic before now. Her current A1C is 5.4.
[2019-04-15] VITALS (24 sets, daily range): BP systolic 96–177; BP diastolic 55–98
[2019-04-15 03:39] LABS: BASOPHILS % (AUTO) 0.1 % (0-1); EOSINOPHILS % (AUTO) 0.5 % (0-6); HEMATOCRIT 24.7 % (35.0-45.0); HEMOGLOBIN 8.3 g/dl (12.0-16.0); LYMPHOCYTES # (AUTO) 0.6 X10'3 (1.1-4.8); LYMPHOCYTES % (AUTO) 6.6 % (21-51); MEAN CORPUSCULAR HEMOGLOBIN 30.5 PG (27.0-31.0); MEAN CORPUSCULAR HGB CONC 33.8 g/dL (33.0-36.5); MEAN CORPUSCULAR VOLUME 90.2 FL (78-98); MEAN PLATELET VOLUME 8.9 FL (7.4-10.4); MONOCYTES # (AUTO) 0.6 X10'3 (0-0.9); MONOCYTES % (AUTO) 6.4 % (2-12); NEUTROPHILS # (AUTO) 8.3 X10'3 (1.8-7.7); NEUTROPHILS % (AUTO) 86.4 % (42-75); PLATELET COUNT 64 X10'3 (140-440); RED BLOOD COUNT 2.73 X10'6 (4.20-5.60); RED CELL DISTRIBUTION WIDTH 16.1 % (11.5-14.5); WHITE BLOOD COUNT 9.6 X10'3 (4.5-11.0)
[2019-04-15 03:45] LABS: ALBUMIN 2.7 G/DL (3.4-5.0); ANION GAP 10 (8-16); BLOOD UREA NITROGEN 51 MG/DL (7-18); BUN/CREATININE RATIO 15.7 (6.6-38.0); CALCIUM 7.6 MG/DL (8.5-10.1); CHLORIDE 102 MMOL/L (99-107); CREATININE 3.25 MG/DL (0.40-0.90); GLUCOSE 76 MG/DL (70-104); MAGNESIUM 2.4 MG/DL (1.5-2.4); PHOSPHORUS 4.9 MG/DL (2.3-4.5); POTASSIUM 3.8 MMOL/L (3.5-5.1); SODIUM 139 MMOL/L (135-145); TOTAL CARBON DIOXIDE 26.8 MMOL/L (24-32); eGFR 14 ML/MIN
--- NOTE | 2019-04-15 06:36 | NUR ---
Problems reprioritized. Patient report given, questions answered & plan of care reviewed with Nell BOLTON and Destiny BOLTON.
[2019-04-15] MEDS: levoTHYROXINE 100mcg tablet PO SCH (08:14)
[2019-04-15] MEDS: pantoprazole 40mg Tablet.DR PO SCH (08:14)
[2019-04-15] MEDS: aspirin 81mg tablet.DR PO SCH (08:14)
[2019-04-15] MEDS: docusate sod 100mg capsule PO SCH ×2 (08:14→20:39)
[2019-04-15] MEDS: sevelamer carbonate 800mg tablet PO SCH ×3 (08:15→18:10)
[2019-04-15] MEDS: lactose-reduced food (Ensure Enlive) - 237ml bottle PO SCH ×3 (08:15→13:37)
--- NOTE | 2019-04-15 08:17 | NUR ---
Administered Ensure and unable to scan bar code.
[2019-04-15] MEDS ORDERED: heparin 1,000unit/ml 10ml vial 10 ML IV ONE (08:28)
[2019-04-15] MEDS ORDERED: albumin (human) 25% 100ml IV 100 ML IV PRN (08:30)
[2019-04-15] MEDS ORDERED: heparin 1,000 units/ml 10ml inj IV ONE (08:30)
[2019-04-15] MEDS ORDERED: epoetin 20,000 units/ml inj IV ONE (08:30)
[2019-04-15] MEDS ORDERED: heparin 1,000 units/ml 10ml inj HE ONE ×2 (08:35)
[2019-04-15] MEDS: atorvastatin 20mg tablet PO SCH (20:39)
[2019-04-15] MEDS: insulin glargine (Lantus) pen - multi-dose SQ SCH (21:00)
[2019-04-16] VITALS (16 sets, daily range): BP systolic 97–135; BP diastolic 47–76
[2019-04-16 05:16] LABS: MAGNESIUM 2.1 MG/DL (1.5-2.4); PHOSPHORUS 2.7 MG/DL (2.3-4.5); POTASSIUM 3.8 MMOL/L (3.5-5.1)
--- NOTE | 2019-04-16 06:34 | NUR ---
Problems reprioritized. Patient report given, questions answered & plan of care reviewed with Nell BOLTON.
[2019-04-16] MEDS ORDERED: potassium Cl 20mEq/100mL bag 100 ML IV PRN (07:20)
[2019-04-16] MEDS ORDERED: magnesium 2GM in 50ml NS 50 ML IV PRN (07:20)
[2019-04-16] MEDS ORDERED: magnesium 4gm in 100ml NS 100 ML IV PRN (07:20)
[2019-04-16] MEDS ORDERED: potassium Cl 20 mEq SR tablet PO PRN (07:20)
[2019-04-16 07:49] LABS: BASOPHILS % (AUTO) 0.3 % (0-1); EOSINOPHILS # (AUTO) 0.2 X10'3 (0-0.9); HEMATOCRIT 25.4 % (35.0-45.0); HEMOGLOBIN 8.6 g/dl (12.0-16.0); LYMPHOCYTES # (AUTO) 0.9 X10'3 (1.1-4.8); LYMPHOCYTES % (AUTO) 9.4 % (21-51); MEAN CORPUSCULAR HEMOGLOBIN 30.7 PG (27.0-31.0); MEAN CORPUSCULAR HGB CONC 33.8 g/dL (33.0-36.5); MEAN CORPUSCULAR VOLUME 90.9 FL (78-98); MEAN PLATELET VOLUME 8.8 FL (7.4-10.4); MONOCYTES # (AUTO) 0.7 X10'3 (0-0.9); MONOCYTES % (AUTO) 6.8 % (2-12); NEUTROPHILS # (AUTO) 7.8 X10'3 (1.8-7.7); NEUTROPHILS % (AUTO) 81.5 % (42-75); PLATELET COUNT 72 X10'3 (140-440); RED BLOOD COUNT 2.79 X10'6 (4.20-5.60); WHITE BLOOD COUNT 9.6 X10'3 (4.5-11.0)
[2019-04-16] MEDS: magnesium Cl slow-release 64mg tablet PO SCH ×2 (08:00→18:56)
[2019-04-16 08:07] LABS: ALBUMIN 2.4 G/DL (3.4-5.0); ALBUMIN/GLOBULIN RATIO 0.9 (1.1-1.5); ALKALINE PHOSPHATASE 63 IU/L (46-116); ANION GAP 7 (8-16); ASPARTATE AMINO TRANSFERASE 50 U/L (10-37); BILIRUBIN,TOTAL 0.7 MG/DL (0.1-1.0); BLOOD UREA NITROGEN 38 MG/DL (7-18); BUN/CREATININE RATIO 13.5 (6.6-38.0); CALCIUM 7.7 MG/DL (8.5-10.1); CHLORIDE 103 MMOL/L (99-107); CREATININE 2.82 MG/DL (0.40-0.90); GLUCOSE 79 MG/DL (70-104); POTASSIUM 3.6 MMOL/L (3.5-5.1); SODIUM 138 MMOL/L (135-145); TOTAL CARBON DIOXIDE 27.7 MMOL/L (24-32); TOTAL PROTEIN 5.1 G/DL (6.4-8.2); eGFR 16 ML/MIN
[2019-04-16] MEDS: aspirin 81mg tablet.DR PO SCH (08:21)
[2019-04-16] MEDS: pantoprazole 40mg Tablet.DR PO SCH (08:21)
[2019-04-16] MEDS: docusate sod 100mg capsule PO SCH ×2 (08:21→20:14)
[2019-04-16 08:23] LABS: ALANINE AMINOTRANSFERASE 6 U/L (12-78)
[2019-04-16] MEDS: potassium Cl 20 mEq SR tablet PO SCH ×2 (08:23→20:13)
[2019-04-16] MEDS: lactose-reduced food (Ensure Enlive) - 237ml bottle PO SCH ×3 (08:25→18:53)
[2019-04-16] MEDS: levoTHYROXINE 100mcg tablet PO SCH (08:28)
[2019-04-16] MEDS: sevelamer carbonate 800mg tablet PO SCH ×3 (08:30→17:42)
--- NOTE | 2019-04-16 11:45 | NUR ---
Patient in room CICU 2013. I have received report from CHE Camejo and had the opportunity to ask questions and assume patient care.
--- NOTE | 2019-04-16 12:00 | NUR ---
Pt arrived from ICU via W/C with personal belongings, v/s WIN
--- NOTE | 2019-04-16 12:30 | NUR ---
Checked with pharmacy regarding renvela, pt has not been eating well, phos is 2.7, pharmacist Malcolm advised that it's okay to skip lunch dosage
--- NOTE | 2019-04-16 12:39 | NUR ---
pt transferred to room 307 per w/c. Report given to Jacklyn NUNEZ)
--- NOTE | 2019-04-16 17:37 | NUR ---
Reassessment: Patient is now on carb controlled renal diet with HD. She is eating poorly post op, 25-49%, she has started drinking her ensure enlive drinking 50% today. No significant bowel movement since admission, only small on 04/16 and 04/14; constipation may lead to poor appetite and poor PO intake. She is receiving colace BID, slow-mag, and is receiving norco. She does have prn reglan and milk of mag not yet given. Spoke with bedside RN who reports patient did have two significant bowel movements today and that bowel care in not needed, discussed to encourage PO intake and intake of ensure in view of recent CABG surgery. Will follow. Rec: 1. Continue carb controlled, renal diet 2. chocolate ensure enlive TIDWM 3. routine bowel care 4. Weight per rx Addendum: 04/16/19 at [address] Amended: Links added.
--- NOTE | 2019-04-16 18:00 | NUR ---
Patient in room MED 307. I have received report from Jacklyn BOLTON and had the opportunity to ask questions and assume patient care.
[2019-04-16] MEDS: atorvastatin 20mg tablet PO SCH (20:14)
[2019-04-16] MEDS: insulin glargine (Lantus) pen - multi-dose SQ SCH (21:00)
[2019-04-17] MEDS: acetaminophen 325mg tablet PO PRN (00:21)
[2019-04-17 02:00] VITALS: BP 101/58
[2019-04-17] MEDS: HYDROcodone/acetaminophen 10/325mg tab PO PRN (02:56)
[2019-04-17 03:31] LABS: BASOPHILS # (AUTO) 0.1 X10'3 (0-0.2); BASOPHILS % (AUTO) 0.7 % (0-1); EOSINOPHILS # (AUTO) 0.2 X10'3 (0-0.9); EOSINOPHILS % (AUTO) 2.3 % (0-6); HEMATOCRIT 25.8 % (35.0-45.0); HEMOGLOBIN 8.7 g/dl (12.0-16.0); LYMPHOCYTES # (AUTO) 1.2 X10'3 (1.1-4.8); LYMPHOCYTES % (AUTO) 11.6 % (21-51); MEAN CORPUSCULAR HEMOGLOBIN 30.6 PG (27.0-31.0); MEAN CORPUSCULAR HGB CONC 33.7 g/dL (33.0-36.5); MEAN CORPUSCULAR VOLUME 90.7 FL (78-98); MEAN PLATELET VOLUME 8.8 FL (7.4-10.4); MONOCYTES # (AUTO) 0.7 X10'3 (0-0.9); MONOCYTES % (AUTO) 6.7 % (2-12); NEUTROPHILS # (AUTO) 7.9 X10'3 (1.8-7.7); NEUTROPHILS % (AUTO) 78.7 % (42-75); PLATELET COUNT 75 X10'3 (140-440); RED BLOOD COUNT 2.85 X10'6 (4.20-5.60); RED CELL DISTRIBUTION WIDTH 15.6 % (11.5-14.5)
[2019-04-17 03:34] LABS: ALBUMIN 2.3 G/DL (3.4-5.0); ANION GAP 9 (8-16); BLOOD UREA NITROGEN 51 MG/DL (7-18); BUN/CREATININE RATIO 15.3 (6.6-38.0); CALCIUM 8.2 MG/DL (8.5-10.1); CHLORIDE 102 MMOL/L (99-107); CREATININE 3.34 MG/DL (0.40-0.90); GLUCOSE 97 MG/DL (70-104); POTASSIUM 4.6 MMOL/L (3.5-5.1); SODIUM 136 MMOL/L (135-145); TOTAL CARBON DIOXIDE 25.5 MMOL/L (24-32); eGFR 13 ML/MIN
[2019-04-17 03:53] LABS: MAGNESIUM 2.2 MG/DL (1.5-2.4)
[2019-04-17 04:27] LABS: BANDS% (MANUAL) 1 % (0-10); EOSINOPHILS % (MANUAL) 1 % (0-6); LYMPHOCYTES % (MANUAL) 3 % (21-51); METAMYLEOCYTES% (MANUAL) 1 % (0-0); MONOCYTES % (MANUAL) 8 % (2-12); NEUTROPHILS % (MANUAL) 86 % (42-75); PLATELET ESTIMATE DECREASED; SMUDGE CELLS 1+; TOTAL CELLS COUNTED 100
[2019-04-17 06:00] VITALS: BP 112/67
--- NOTE | 2019-04-17 06:12 | NUR ---
Problems reprioritized. Patient report given, questions answered & plan of care reviewed with Latonya Mares.
--- NOTE | 2019-04-17 06:29 | NUR ---
Patient in room MED 307. I have received report from CHE Peña and had the opportunity to ask questions and assume patient care.
[2019-04-17] MEDS: magnesium Cl slow-release 64mg tablet PO SCH (08:00)
[2019-04-17] MEDS: potassium Cl 20 mEq SR tablet PO SCH (08:00)
[2019-04-17] MEDS: levoTHYROXINE 100mcg tablet PO SCH (08:07)
[2019-04-17] MEDS: pantoprazole 40mg Tablet.DR PO SCH (08:07)
[2019-04-17] MEDS: docusate sod 100mg capsule PO SCH (08:07)
[2019-04-17] MEDS: sevelamer carbonate 800mg tablet PO SCH ×3 (08:07→17:30)
[2019-04-17] MEDS: aspirin 81mg tablet.DR PO SCH (08:07)
[2019-04-17] MEDS: lactose-reduced food (Ensure Enlive) - 237ml bottle PO SCH ×3 (08:12→18:00)
[2019-04-17] MEDS ORDERED: heparin 1,000unit/ml 10ml vial 10 ML IV ONE (09:06)
--- NOTE | 2019-04-17 09:08 | NUR ---
case management paged [phone]: ANSLEY finn LTAC orders/TMS signed. :D
[2019-04-17] MEDS ORDERED: epoetin 20,000 units/ml inj IV ONE (09:10)
[2019-04-17] MEDS ORDERED: albumin (human) 25% 100ml IV 100 ML IV PRN (09:10)
[2019-04-17] MEDS ORDERED: heparin 1,000 units/ml 10ml inj HE ONE ×2 (09:10)
[2019-04-17] MEDS ORDERED: heparin 1,000 units/ml 10ml inj IV ONE (09:10)
--- NOTE | 2019-04-17 10:34 | NUR ---
CASE MANAGEMENT PAGED [phone]: ANSLEY - DIALYSIS NURSE @ BEDSIDE, HD TO START SOON :D
[2019-04-17 11:00] VITALS: BP 111/58
--- NOTE | 2019-04-17 12:17 | NUR ---
Reassessment: PO intake stable at 50% most recent meals, pending documentation of PO intake today. ONS acceptance also improved from 50% up to 75-100% x 2 most recent. Pt likely closely meeting nutrient needs with combination PO intake of meals and ONS. Pt continues with HD. Possibly to d/c to LTAC today per MD notes. Will continue to follow. Reassessment: Patient is now on carb controlled renal diet with HD. She is eating poorly post op, 25-49%, she has started drinking her ensure enlive drinking 50% today. No significant bowel movement since admission, only small on 04/16 and 04/14; constipation may lead to poor appetite and poor PO intake. She is receiving colace BID, slow-mag, and is receiving norco. She does have prn reglan and milk of mag not yet given. Spoke with bedside RN who reports patient did have two significant bowel movements today and that bowel care in not needed, discussed to encourage PO intake and intake of ensure in view of recent CABG surgery. Will follow. Rec: 1. Continue carb controlled, renal diet 2. chocolate ensure enlive TIDWM 3. routine bowel care 4. Weight per rx Addendum: 04/17/19 at [address] Amended: Links added.
--- NOTE | 2019-04-17 14:40 | NUR ---
PATIENT CONVERTED TO AFIB HR 110s, CURRENTLY RECEIVING DIALYSIS. CALLED DALY GRAVES - NO ANSWER, MSG LEFT CALLED DR. GORDON, UPDATED ON PATIENT CONDITION - NEW ORDER RECEIVED: AMIODARONE LOADING DOSE x1 PATIENT STILL OK TO TRANSFER TO [facility]. DALY GRAVES CALLED BACK - NEW ORDER RECEIVED: CONTINUE AMIODARONE GTT IF LOADING DOSE INEFFECTIVE TO CONVERT TO SR, TRANSFER PATIENT TO [facility] WITH AMIO GTT.
[2019-04-17 15:00] VITALS: BP 107/60
[2019-04-17] MEDS ORDERED: amiodarone 150mg/dext, iso-os 100 ML IV ONE (15:05)
[2019-04-17] MEDS ORDERED: amiodarone/D5 360MG/200ML BAG 200 ML IV SCH (15:27)
--- NOTE | 2019-04-17 18:36 | NUR ---
pt. transferred to [facility] via [facility] at 181. pt. report called into nurse Hair at receiving facility and all questions were answered. pt. was transferred with amiodarone drip at 33 ml/hr that MD nationed and the [facility] nurse went with her for safe transport. pt. left with all belongings.
== END 2019-04-17 18:00 | DRG 216 ==
LOC: ER 08:32 → ED HOLD 11:54 → MED 3N 12:44 → OBSVTOIN 04-05 02:41 → CICU 2S 04-11 09:59 → MED 3N 04-16 12:09
PROVIDERS: ADMIT Internal Medicine; ATTEND Thoracic Surgery (Cardiothoracic Vascular Surgery)
PROC: 4A023N8 Measurement of Cardiac Sampling and Pressure, Bilateral, Percutaneous Approach (ICD-10-PCS; 2019-04-05)
PROC: B2111ZZ Fluoroscopy of Multiple Coronary Arteries using Low Osmolar Contrast (ICD-10-PCS; 2019-04-05)
PROC: 02RG08Z Replacement of Mitral Valve with Zooplastic Tissue, Open Approach (ICD-10-PCS; 2019-04-11)
PROC: 06BQ4ZZ Excision of Left Saphenous Vein, Percutaneous Endoscopic Approach (ICD-10-PCS; 2019-04-11)
PROC: 5A1221Z Performance of Cardiac Output, Continuous (ICD-10-PCS; 2019-04-11)
PROC: B24BZZ4 Ultrasonography of Heart with Aorta, Transesophageal (ICD-10-PCS; 2019-04-11)
PROC: 02L70CK Occlusion of Left Atrial Appendage with Extraluminal Device, Open Approach (ICD-10-PCS; 2019-04-11)
PROC: 3E080GC Introduction of Other Therapeutic Substance into Heart, Open Approach (ICD-10-PCS; 2019-04-11)
PROC: B24BZZZ Ultrasonography of Heart with Aorta (ICD-10-PCS; 2019-04-11)
PROC: 30233M1 Transfusion of Nonautologous Plasma Cryoprecipitate into Peripheral Vein, Percutaneous Approach (ICD-10-PCS; 2019-04-11)
PROC: 30233N1 Transfusion of Nonautologous Red Blood Cells into Peripheral Vein, Percutaneous Approach (ICD-10-PCS; 2019-04-11)
PROC: 30233R1 Transfusion of Nonautologous Platelets into Peripheral Vein, Percutaneous Approach (ICD-10-PCS; 2019-04-11)
PROC: 02QJ0ZZ Repair Tricuspid Valve, Open Approach (ICD-10-PCS; 2019-04-11)
PROC: 02Q Heart and Great Vessels, Repair (ICD-10-PCS; 2019-04-11)
PROC: 021209W Bypass Coronary Artery, Three Arteries from Aorta with Autologous Venous Tissue, Open Approach (ICD-10-PCS; principal; 2019-04-11 06:50)
PROC: 0JH63XZ Insertion of Tunneled Vascular Access Device into Chest Subcutaneous Tissue and Fascia, Percutaneous Approach (ICD-10-PCS; 2019-04-14)
PROC: 02H633Z Insertion of Infusion Device into Right Atrium, Percutaneous Approach (ICD-10-PCS; 2019-04-14)
PROC: B548ZZA Ultrasonography of Superior Vena Cava, Guidance (ICD-10-PCS; 2019-04-14)
PROC: B5181ZA Fluoroscopy of Superior Vena Cava using Low Osmolar Contrast, Guidance (ICD-10-PCS; 2019-04-14)
PROC: 5A1D70Z Performance of Urinary Filtration, Intermittent, Less than 6 Hours Per Day (ICD-10-PCS; 2019-04-14)
PROC: 5A1D70Z Performance of Urinary Filtration, Intermittent, Less than 6 Hours Per Day (ICD-10-PCS; 2019-04-15)
PROC: 5A1D70Z Performance of Urinary Filtration, Intermittent, Less than 6 Hours Per Day (ICD-10-PCS; 2019-04-17)
DX: I21.4 Non-ST elevation (NSTEMI) myocardial infarction (principal); I50.33 Acute on chronic diastolic (congestive) heart failure; J96.00 Acute respiratory failure, unspecified whether with hypoxia or hypercapnia; I13.0 Hypertensive heart and chronic kidney disease with heart failure and stage 1 through stage 4 chronic kidney disease, or unspecified chronic kidney disease; N18.4 Chronic kidney disease, stage 4 (severe); N39.0 Urinary tract infection, site not specified; D62 Acute posthemorrhagic anemia; S26.19XA Other injury of heart without hemopericardium, initial encounter; I25.110 Atherosclerotic heart disease of native coronary artery with unstable angina pectoris; E78.5 Hyperlipidemia, unspecified; M32.9 Systemic lupus erythematosus, unspecified; E03.9 Hypothyroidism, unspecified; I73.9 Peripheral vascular disease, unspecified; I08.1 Rheumatic disorders of both mitral and tricuspid valves; I27.20 Pulmonary hypertension, unspecified; I48.91 Unspecified atrial fibrillation; I71.4 Abdominal aortic aneurysm, without rupture; K21.9 Gastro-esophageal reflux disease without esophagitis; K43.9 Ventral hernia without obstruction or gangrene; E87.5 Hyperkalemia; M19.90 Unspecified osteoarthritis, unspecified site; Z80.9 Family history of malignant neoplasm, unspecified; Z85.51 Personal history of malignant neoplasm of bladder; Z87.891 Personal history of nicotine dependence; I25.2 Old myocardial infarction; Z95.5 Presence of coronary angioplasty implant and graft; Z83.49 Family history of other endocrine, nutritional and metabolic diseases; Z90.5 Acquired absence of kidney; Z98.42 Cataract extraction status, left eye; Z98.41 Cataract extraction status, right eye; Z93.3 Colostomy status; Z90.710 Acquired absence of both cervix and uterus; Z79.52 Long term (current) use of systemic steroids; Z79.82 Long term (current) use of aspirin; Z82.41 Family history of sudden cardiac death; Z86.79 Personal history of other diseases of the circulatory system; Z88.5 Allergy status to narcotic agent; Z88.0 Allergy status to penicillin; Z88.2 Allergy status to sulfonamides; Z88.8 Allergy status to other drugs, medicaments and biological substances; Z91.041 Radiographic dye allergy status; Z79.899 Other long term (current) drug therapy; Y65.8 Other specified misadventures during surgical and medical care; Y92.234 Operating room of hospital as the place of occurrence of the external cause
CPT/HCPCS: 0232T; 36558; 93306; 93312; 93325; 93454; 96365; 96375; 99285; 36415; 36600; 71045; 71046; 76937; 77001; 80048; 80053; 81001; 82330; 82435; 82803; 82947; 82948; 83036; 83735; 84100; 84132; 84295; 84443; 84484; 85018; 85025; 85027; 85347; 85384; 85610; 85730; 86022; 86885; 86900; 86901; 86920; 87077; 87081; 87088; 87186; 87340; 88300; 93005; 93880; 93970; 93971; 93975; 94002; 94003; 94010; 94760; 97110; 97116; 97161; 97530; 99152; A4618; A6258; A6402; A6449; A7000; A7048; A9270; C1713; C1750; C1769; C1894; C9113; G0257; G0378; GO378; J0282; J0360; J0610; J0690; J0696; J1200; J1644; J1815; J1940; J2001; J2060; J2150; J2250; J2260; J2270; J2370; J2405; J2440; J2795; J2930; J3010; J3370; J3475; J3480; J3490; J7030; J7040; J7050; J7120; J7512; P9012; P9016; P9035; P9045; P9047; Q4081; Q9967

== ENCOUNTER 2019-05-26 15:16 | Emergency (ER) | payer MEDICARE, OTHER ==
[~2019-05-26] VITALS: Ht 160 cm; Wt 72.7 kg
[~2019-05-26 15:16] MED LIST changes: -ASPI-1071 PO; -PANT40TA4 PO; +RANI150T8 PO; -[UNRECOGNIZED DRUG - CODE]
[2019-05-26] MEDS ORDERED: normal saline 1000ML IV soln IVB ONE (15:35)
[2019-05-26] MEDS ORDERED: ondansetron/PF 4mg/2ml inj IV ONE (15:35)
[2019-05-26 16:26] LABS: BASOPHILS # (AUTO) 0.1 X10'3 (0-0.2); BASOPHILS % (AUTO) 1.1 % (0-1); EOSINOPHILS # (AUTO) 0.4 X10'3 (0-0.9); EOSINOPHILS % (AUTO) 3.9 % (0-6); HEMATOCRIT 25.2 % (35.0-45.0); HEMOGLOBIN 8.5 g/dl (12.0-16.0); LYMPHOCYTES # (AUTO) 1.2 X10'3 (1.1-4.8); LYMPHOCYTES % (AUTO) 13.5 % (21-51); MEAN CORPUSCULAR HEMOGLOBIN 31.2 PG (27.0-31.0); MEAN CORPUSCULAR HGB CONC 33.8 g/dL (33.0-36.5); MEAN CORPUSCULAR VOLUME 92.1 FL (78-98); MONOCYTES % (AUTO) 10.8 % (2-12); NEUTROPHILS # (AUTO) 6.5 X10'3 (1.8-7.7); NEUTROPHILS % (AUTO) 70.7 % (42-75); PLATELET COUNT 262 X10'3 (140-440); RED BLOOD COUNT 2.74 X10'6 (4.20-5.60); RED CELL DISTRIBUTION WIDTH 19.7 % (11.5-14.5); WHITE BLOOD COUNT 9.2 X10'3 (4.5-11.0)
[2019-05-26 16:34] LABS: ALANINE AMINOTRANSFERASE 12 U/L (12-78); ALBUMIN 2.4 G/DL (3.4-5.0); ALBUMIN/GLOBULIN RATIO 0.5 (1.1-1.5); ALKALINE PHOSPHATASE 146 IU/L (46-116); ANION GAP 5 (8-16); ASPARTATE AMINO TRANSFERASE 21 U/L (10-37); BILIRUBIN,TOTAL 0.4 MG/DL (0.1-1.0); BLOOD UREA NITROGEN 14 MG/DL (7-18); BUN/CREATININE RATIO 4.7 (6.6-38.0); CALCIUM 9.1 MG/DL (8.5-10.1); CHLORIDE 99 MMOL/L (99-107); CREATININE 2.98 MG/DL (0.40-0.90); GLUCOSE 76 MG/DL (70-104); POTASSIUM 4.5 MMOL/L (3.5-5.1); SODIUM 133 MMOL/L (135-145); TOTAL CARBON DIOXIDE 28.6 MMOL/L (24-32); TOTAL PROTEIN 6.9 G/DL (6.4-8.2); eGFR 15 ML/MIN
[2019-05-26] MEDS ORDERED: morphine 4 MG/ML inj SYRINge IM ONE (16:45)
[2019-05-26] MEDS ORDERED: ondansetron 4mg rapidly disintigrating tab PO ONE (16:45)
[2019-05-26] MEDS ORDERED: CIPR-260 PO (16:48)
[2019-05-26] MEDS ORDERED: METR250T PO (16:48)
[2019-05-26] MEDS: morphine 4 MG/ML inj SYRINge IV PRN ×2 (16:56→16:57)
[2019-05-26 17:08] LABS: ANISOCYTOSIS 2+; BURR CELLS FEW; ELLIPTOCYTES FEW; PLATELET ESTIMATE NORMAL; POLYCHROMASIA 1+; SCHISTOCYTES FEW; TEAR DROP CELLS FEW
[2019-05-26 17:24] VITALS: BP 129/68
== END 2019-05-26 17:55 | disposition home or self-care (01) ==
LOC: ER 15:17
DX: K52.9 Noninfective gastroenteritis and colitis, unspecified (principal); I25.10 Atherosclerotic heart disease of native coronary artery without angina pectoris; I50.9 Heart failure, unspecified; I25.2 Old myocardial infarction; N18.6 End stage renal disease; J44.9 Chronic obstructive pulmonary disease, unspecified; Z98.61 Coronary angioplasty status; Z90.710 Acquired absence of both cervix and uterus; Z98.890 Other specified postprocedural states; Z99.2 Dependence on renal dialysis; Z88.0 Allergy status to penicillin; Z88.2 Allergy status to sulfonamides; Z88.5 Allergy status to narcotic agent; Z88.8 Allergy status to other drugs, medicaments and biological substances; Z79.2 Long term (current) use of antibiotics; Z79.899 Other long term (current) drug therapy
CPT/HCPCS: 36415; 74176; 80053; 85025; 96372; 99284; J2270

== ENCOUNTER 2019-06-04 13:12 | Outpatient (CLI) | payer MEDICARE, OTHER ==
[~2019-06-04 13:12] MED LIST changes: +CIPR-260 PO; +METR250T PO
== END 2019-06-04 23:59 | disposition home or self-care (01) ==
LOC: LAB 13:12
DX: Z53.21 Procedure and treatment not carried out due to patient leaving prior to being seen by health care provider (principal); I25.10 Atherosclerotic heart disease of native coronary artery without angina pectoris

== ENCOUNTER 2019-10-11 20:53 | Inpatient (IN) | payer MEDICARE, OTHER ==
[~2019-10-11] VITALS: Ht 160 cm; Wt 65.1 kg
[~2019-10-11 20:53] MED LIST changes: -CIPR-260 PO; -FERR325T28 PO; -ISOS30TA6 PO; +LEVO500T2 PO; -METR250T PO; -RANI150T8 PO; +SODI650T29 PO
--- NOTE | 2019-10-11 21:22 | NUR ---
Pt was scheduled for dialysis today but dialysis facility said pt's. port was non functioning and she would have to have it replaced on Sunday
[2019-10-11 21:31] LABS: BASOPHILS % (AUTO) 0.5 % (0-1); EOSINOPHILS # (AUTO) 0.1 X10'3 (0-0.9); EOSINOPHILS % (AUTO) 1.6 % (0-6); HEMOGLOBIN 10.8 g/dl (12.0-16.0); LYMPHOCYTES # (AUTO) 0.5 X10'3 (1.1-4.8); LYMPHOCYTES % (AUTO) 6.4 % (21-51); MEAN CORPUSCULAR HEMOGLOBIN 34.6 PG (27.0-31.0); MEAN CORPUSCULAR HGB CONC 32.9 g/dL (33.0-36.5); MEAN CORPUSCULAR VOLUME 105.3 FL (78-98); MEAN PLATELET VOLUME 6.6 FL (7.4-10.4); MONOCYTES # (AUTO) 0.6 X10'3 (0-0.9); MONOCYTES % (AUTO) 8.2 % (2-12); NEUTROPHILS # (AUTO) 6.4 X10'3 (1.8-7.7); NEUTROPHILS % (AUTO) 83.3 % (42-75); PLATELET COUNT 178 X10'3 (140-440); RED BLOOD COUNT 3.13 X10'6 (4.20-5.60); RED CELL DISTRIBUTION WIDTH 14.2 % (11.5-14.5); WHITE BLOOD COUNT 7.7 X10'3 (4.5-11.0)
[2019-10-11 21:50] LABS: ALANINE AMINOTRANSFERASE 26 U/L (12-78); ALBUMIN 3.1 G/DL (3.4-5.0); ALBUMIN/GLOBULIN RATIO 0.7 (1.1-1.5); ALKALINE PHOSPHATASE 96 IU/L (46-116); ANION GAP 12 (8-16); ASPARTATE AMINO TRANSFERASE 16 U/L (10-37); BILIRUBIN,TOTAL 0.5 MG/DL (0.1-1.0); BLOOD UREA NITROGEN 54 MG/DL (7-18); BUN/CREATININE RATIO 8.9 (6.6-38.0); CALCIUM 9.1 MG/DL (8.5-10.1); CHLORIDE 98 MMOL/L (99-107); CREATININE 6.09 MG/DL (0.40-0.90); GLUCOSE 117 MG/DL (70-104); POTASSIUM 4.5 MMOL/L (3.5-5.1); SODIUM 137 MMOL/L (135-145); TOTAL CARBON DIOXIDE 27.1 MMOL/L (24-32); TOTAL PROTEIN 7.3 G/DL (6.4-8.2); eGFR 7 ML/MIN
[2019-10-11] MEDS ORDERED: nitroGLYCERIN 0.4mg/hour patch TD ONE (22:10)
[2019-10-11] MEDS ORDERED: acetaminophen 325mg tablet PO PRN (22:15)
[2019-10-11] MEDS ORDERED: HYDROcodone/acetaminophen 5mg/325mg tablet PO PRN (22:15)
[2019-10-11] MEDS ORDERED: ondansetron/PF 4mg/2ml inj IV PRN (22:15)
[2019-10-11] MEDS ORDERED: nitroGLYCERIN 0.4mg SUBLingual tab SL PRN (22:25)
--- NOTE | 2019-10-11 22:30 | NUR ---
Patient in room PCU 3022. I have received report from "Cap" RN by telephone from ER and had the opportunity to ask questions and assume patient care.
[2019-10-11 23:00] VITALS: BP 155/74
[2019-10-12] MEDS ORDERED: Melatonin 3mg tablet PO SCH (01:35)
[2019-10-12 02:00] VITALS: BP 121/59
--- NOTE | 2019-10-12 03:10 | NUR ---
Refused blood draw at this time Patient is refusing blood draw until Phlebotomy comes onto the unit this AM. Patient was educated about the importance of timed troponin lab but still refused. Will continue to monitor patient.
[2019-10-12 06:00] VITALS: BP 121/59
[2019-10-12 06:09] LABS: BASOPHILS % (AUTO) 0.5 % (0-1); EOSINOPHILS # (AUTO) 0.6 X10'3 (0-0.9); EOSINOPHILS % (AUTO) 8.7 % (0-6); LYMPHOCYTES # (AUTO) 0.9 X10'3 (1.1-4.8); LYMPHOCYTES % (AUTO) 12.4 % (21-51); MEAN CORPUSCULAR HGB CONC 33.2 g/dL (33.0-36.5); MEAN CORPUSCULAR VOLUME 105.6 FL (78-98); MEAN PLATELET VOLUME 6.7 FL (7.4-10.4); MONOCYTES # (AUTO) 0.8 X10'3 (0-0.9); NEUTROPHILS # (AUTO) 4.7 X10'3 (1.8-7.7); NEUTROPHILS % (AUTO) 66.4 % (42-75); PLATELET COUNT 156 X10'3 (140-440); RED BLOOD COUNT 2.56 X10'6 (4.20-5.60); RED CELL DISTRIBUTION WIDTH 14.6 % (11.5-14.5)
[2019-10-12 06:21] LABS: ALANINE AMINOTRANSFERASE 24 U/L (12-78); ALBUMIN 2.6 G/DL (3.4-5.0); ALBUMIN/GLOBULIN RATIO 0.8 (1.1-1.5); ALKALINE PHOSPHATASE 70 IU/L (46-116); ANION GAP 10 (8-16); ASPARTATE AMINO TRANSFERASE 14 U/L (10-37); BILIRUBIN,TOTAL 0.5 MG/DL (0.1-1.0); BLOOD UREA NITROGEN 60 MG/DL (7-18); BUN/CREATININE RATIO 9.5 (6.6-38.0); CALCIUM 8.7 MG/DL (8.5-10.1); CHLORIDE 99 MMOL/L (99-107); CREATININE 6.34 MG/DL (0.40-0.90); GLUCOSE 88 MG/DL (70-104); POTASSIUM 4.3 MMOL/L (3.5-5.1); SODIUM 136 MMOL/L (135-145); TOTAL PROTEIN 5.9 G/DL (6.4-8.2); eGFR 6 ML/MIN
[2019-10-12 06:23] LABS: MAGNESIUM 1.8 MG/DL (1.5-2.4); PHOSPHORUS 6.8 MG/DL (2.3-4.5)
--- NOTE | 2019-10-12 06:48 | NUR ---
Patient in room PCU 3022. I have received report from Irene BOLTON and had the opportunity to ask questions and assume patient care.
--- NOTE | 2019-10-12 06:49 | NUR ---
Problems reprioritized. Patient report given, questions answered & plan of care reviewed with Va BOLTON.
[2019-10-12] MEDS: atorvastatin 20mg tablet PO SCH (07:03)
[2019-10-12] MEDS: amLODIPine 5mg tablet PO SCH (07:03)
[2019-10-12] MEDS: acetaminophen 325mg tablet PO PRN ×2 (07:03→20:57)
[2019-10-12] MEDS: levoTHYROXINE 100mcg tablet PO SCH (07:04)
[2019-10-12] MEDS: predniSONE 5mg tablet PO SCH (07:04)
[2019-10-12] MEDS: metoprolol tartrate 25mg tablet PO SCH ×2 (07:04→19:09)
[2019-10-12] MEDS ORDERED: tPA-cathflo 2 MG/2 ml IV flush IVF ONE (10:25)
[2019-10-12 11:00] VITALS: BP 106/52
[2019-10-12] MEDS: ipratropium/albuterol 3ml nebule NEB SCH ×3 (13:35→20:31)
[2019-10-12] MEDS: furosemide 40mg tablet PO SCH ×2 (13:49→19:08)
[2019-10-12] MEDS ORDERED: heparin 1,000 units/ml 10ml inj HE ONE ×2 (14:45)
[2019-10-12 15:00] VITALS: BP 127/61
[2019-10-12 18:00] VITALS: BP 135/72
--- NOTE | 2019-10-12 18:22 | NUR ---
Problems reprioritized. Patient report given, questions answered & plan of care reviewed with Irene BOLTON.
--- NOTE | 2019-10-12 18:38 | NUR ---
Patient in room PCU 3022. I have received report from Va BOLTON and had the opportunity to ask questions and assume patient care.
[2019-10-12] MEDS ORDERED: zolpidem 5mg tablet PO PRN (20:45)
[2019-10-13 02:02] VITALS: BP 114/60
[2019-10-13 05:32] LABS: BASOPHILS % (AUTO) 0.7 % (0-1); EOSINOPHILS # (AUTO) 0.7 X10'3 (0-0.9); EOSINOPHILS % (AUTO) 10.7 % (0-6); HEMATOCRIT 26.2 % (35.0-45.0); HEMOGLOBIN 8.8 g/dl (12.0-16.0); LYMPHOCYTES # (AUTO) 0.9 X10'3 (1.1-4.8); LYMPHOCYTES % (AUTO) 13.7 % (21-51); MEAN CORPUSCULAR HEMOGLOBIN 35.2 PG (27.0-31.0); MEAN CORPUSCULAR HGB CONC 33.7 g/dL (33.0-36.5); MEAN CORPUSCULAR VOLUME 104.5 FL (78-98); MEAN PLATELET VOLUME 6.7 FL (7.4-10.4); MONOCYTES # (AUTO) 0.7 X10'3 (0-0.9); MONOCYTES % (AUTO) 11.4 % (2-12); NEUTROPHILS # (AUTO) 4.2 X10'3 (1.8-7.7); NEUTROPHILS % (AUTO) 63.5 % (42-75); PLATELET COUNT 142 X10'3 (140-440); RED CELL DISTRIBUTION WIDTH 14.6 % (11.5-14.5); WHITE BLOOD COUNT 6.6 X10'3 (4.5-11.0)
[2019-10-13 05:54] LABS: ALANINE AMINOTRANSFERASE 19 U/L (12-78); ALBUMIN 2.5 G/DL (3.4-5.0); ALBUMIN/GLOBULIN RATIO 0.8 (1.1-1.5); ALKALINE PHOSPHATASE 64 IU/L (46-116); ANION GAP 12 (8-16); ASPARTATE AMINO TRANSFERASE 17 U/L (10-37); BILIRUBIN,TOTAL 0.5 MG/DL (0.1-1.0); BLOOD UREA NITROGEN 67 MG/DL (7-18); BUN/CREATININE RATIO 9.4 (6.6-38.0); CALCIUM 8.3 MG/DL (8.5-10.1); CHLORIDE 99 MMOL/L (99-107); CREATININE 7.15 MG/DL (0.40-0.90); GLUCOSE 87 MG/DL (70-104); MAGNESIUM 1.9 MG/DL (1.5-2.4); PHOSPHORUS 7.8 MG/DL (2.3-4.5); POTASSIUM 4.3 MMOL/L (3.5-5.1); SODIUM 136 MMOL/L (135-145); TOTAL CARBON DIOXIDE 24.9 MMOL/L (24-32); TOTAL PROTEIN 5.8 G/DL (6.4-8.2); eGFR 6 ML/MIN
--- NOTE | 2019-10-13 06:29 | NUR ---
Problems reprioritized. Patient report given, questions answered & plan of care reviewed with Yesenia Villanueva
--- NOTE | 2019-10-13 06:38 | NUR ---
Patient in room PCU 3022. I have received report from and had the opportunity to ask questions and assume patient care.
--- NOTE | 2019-10-13 06:38 | NUR ---
Patient in room PCU 3022. I have received report from Olive BOLTON and had the opportunity to ask questions and assume patient care.
[2019-10-13 07:00] VITALS: BP 119/64
[2019-10-13] MEDS ORDERED: heparin 1,000unit/ml 10ml vial 10 ML IV ONE (07:18)
[2019-10-13] MEDS ORDERED: epoetin 20,000 units/ml inj IV ONE (07:20)
[2019-10-13] MEDS ORDERED: heparin 1,000 units/ml 10ml inj IV ONE (07:20)
[2019-10-13] MEDS ORDERED: heparin 1,000 units/ml 10ml inj HE ONE ×2 (07:25)
[2019-10-13] MEDS: ipratropium/albuterol 3ml nebule NEB SCH ×4 (08:00→20:56)
[2019-10-13] MEDS: predniSONE 5mg tablet PO SCH (08:16)
[2019-10-13] MEDS: levoTHYROXINE 100mcg tablet PO SCH (08:16)
[2019-10-13] MEDS: amLODIPine 5mg tablet PO SCH (08:16)
[2019-10-13] MEDS: furosemide 40mg tablet PO SCH ×2 (08:16→20:50)
[2019-10-13] MEDS: atorvastatin 20mg tablet PO SCH (08:16)
[2019-10-13] MEDS: metoprolol tartrate 25mg tablet PO SCH ×2 (08:17→20:50)
[2019-10-13 11:00] VITALS: BP 129/62
[2019-10-13] MEDS: acetaminophen 325mg tablet PO PRN ×2 (11:04→22:08)
--- NOTE | 2019-10-13 12:30 | NUR ---
Patient's left arm was notably swollen and red where fistula was implanted. Patients elbow is elevated with warm compress to relieve pain. Dr. Ansari was at bedside and reported that he would input a vascular study later today. He also stated that antibiotics will also be ordered today or tomorrow depending on the results. Patient was given Tylenol for pain and mold shifter marked area of concern to watch for more growth in swelling. Will continue to monitor.
--- NOTE | 2019-10-13 14:59 | NUR ---
Paged Ultrasound Re: Savannah Chavarria RM [id number]. A stat order for a vascular ultra sound. Please advise
[2019-10-13 15:00] VITALS: BP 103/56
--- NOTE | 2019-10-13 15:57 | NUR ---
Paged vascular regarding New orders Stat: Re: Savannah Chavarria RM [id number]. A stat order for a vascular ultra sound. Please advise Vascular called back to confirm orders.
--- NOTE | 2019-10-13 18:22 | NUR ---
Problems reprioritized. Patient report given, questions answered & plan of care reviewed with Florecita BOLTON.
--- NOTE | 2019-10-13 19:18 | NUR ---
pt refused vs at 1800
[2019-10-13 22:00] VITALS: BP 132/61
[2019-10-14 02:00] VITALS: BP 139/67
[2019-10-14 05:44] LABS: BASOPHILS # (AUTO) 0.1 X10'3 (0-0.2); BASOPHILS % (AUTO) 0.9 % (0-1); EOSINOPHILS # (AUTO) 0.6 X10'3 (0-0.9); EOSINOPHILS % (AUTO) 10.5 % (0-6); HEMATOCRIT 30.9 % (35.0-45.0); HEMOGLOBIN 10.1 g/dl (12.0-16.0); LYMPHOCYTES # (AUTO) 0.9 X10'3 (1.1-4.8); LYMPHOCYTES % (AUTO) 14.2 % (21-51); MEAN CORPUSCULAR HEMOGLOBIN 34.5 PG (27.0-31.0); MEAN CORPUSCULAR HGB CONC 32.7 g/dL (33.0-36.5); MEAN CORPUSCULAR VOLUME 105.5 FL (78-98); MEAN PLATELET VOLUME 6.8 FL (7.4-10.4); MONOCYTES # (AUTO) 0.9 X10'3 (0-0.9); NEUTROPHILS # (AUTO) 3.6 X10'3 (1.8-7.7); NEUTROPHILS % (AUTO) 59.4 % (42-75); PLATELET COUNT 165 X10'3 (140-440); RED BLOOD COUNT 2.93 X10'6 (4.20-5.60); WHITE BLOOD COUNT 6.1 X10'3 (4.5-11.0)
[2019-10-14 05:55] LABS: ALANINE AMINOTRANSFERASE 20 U/L (12-78); ALBUMIN 2.7 G/DL (3.4-5.0); ALBUMIN/GLOBULIN RATIO 0.7 (1.1-1.5); ALKALINE PHOSPHATASE 73 IU/L (46-116); ANION GAP 6 (8-16); ASPARTATE AMINO TRANSFERASE 15 U/L (10-37); BILIRUBIN,TOTAL 0.5 MG/DL (0.1-1.0); BLOOD UREA NITROGEN 24 MG/DL (7-18); BUN/CREATININE RATIO 5.6 (6.6-38.0); CALCIUM 8.9 MG/DL (8.5-10.1); CHLORIDE 102 MMOL/L (99-107); GLUCOSE 96 MG/DL (70-104); POTASSIUM 4.1 MMOL/L (3.5-5.1); SODIUM 138 MMOL/L (135-145); TOTAL PROTEIN 6.4 G/DL (6.4-8.2); eGFR 10 ML/MIN
--- NOTE | 2019-10-14 06:15 | NUR ---
Report given to angela Patterson.
--- NOTE | 2019-10-14 06:32 | NUR ---
Patient in room PCU 3022. I have received report from Florecita BOLTON and had the opportunity to ask questions and assume patient care.
[2019-10-14 06:49] LABS: PLATELET ESTIMATE NORMAL; TOTAL CELLS COUNTED 100
[2019-10-14 07:00] VITALS: BP 110/58
[2019-10-14] MEDS: ipratropium/albuterol 3ml nebule NEB SCH ×4 (07:00→20:24)
[2019-10-14] MEDS: predniSONE 5mg tablet PO SCH (07:49)
[2019-10-14] MEDS: metoprolol tartrate 25mg tablet PO SCH ×2 (07:49→19:33)
[2019-10-14] MEDS: levoTHYROXINE 100mcg tablet PO SCH (07:49)
[2019-10-14] MEDS: amLODIPine 5mg tablet PO SCH (07:49)
[2019-10-14] MEDS: atorvastatin 20mg tablet PO SCH (07:50)
[2019-10-14] MEDS: furosemide 40mg tablet PO SCH ×2 (07:50→19:33)
[2019-10-14] MEDS ORDERED: heparin 1,000unit/ml 10ml vial 10 ML IV ONE (09:43)
[2019-10-14] MEDS ORDERED: epoetin 20,000 units/ml inj IV ONE (09:45)
[2019-10-14] MEDS ORDERED: heparin 1,000 units/ml 10ml inj IV ONE (09:45)
[2019-10-14] MEDS ORDERED: albumin (human) 25% 100ml IV 100 ML IV PRN (09:45)
[2019-10-14] MEDS ORDERED: heparin 1,000 units/ml 10ml inj HE ONE ×2 (09:50)
[2019-10-14 11:00] VITALS: BP 111/59
--- NOTE | 2019-10-14 14:43 | NUR ---
Patients granddaughter at bed side with Dr. Ansari and Nurse. Dr. Ansari explained to patient that their was a drop in heart function EF 40-45% from the 55% earlier stated. explained that the fluid restriction will still need to be in place and that the muscle cramps is a normal response to being diuresis from other day. He explained that the heart is where it will stand that no surgery would make the function better. Patient expressed much sadness and did not cope well to the life changes. Granddaughter was later taken out of the room and a 1:1 conversation with about diagnosis. The patient did not cope well with news from and took awhile to come into light with all the new news. At this time, the doctor said that he was just trying to diuresis her and watch her for further studies with medications. also stated that no antibiotics will be given for left arm, as it is a hematoma.
[2019-10-14 15:00] VITALS: BP 113/50
[2019-10-14 18:00] VITALS: BP 108/52
--- NOTE | 2019-10-14 18:29 | NUR ---
Problems reprioritized. Patient report given, questions answered & plan of care reviewed with Kasia BOLTON.
--- NOTE | 2019-10-14 18:33 | NUR ---
Patient in room PCU 3022. I have received report from Yesenia BOLTON and had the opportunity to ask questions and assume patient care.
[2019-10-14] MEDS: acetaminophen 325mg tablet PO PRN (21:46)
[2019-10-14 22:00] VITALS: BP 113/53
[2019-10-15 02:00] VITALS: BP 117/54
[2019-10-15 06:01] LABS: ALANINE AMINOTRANSFERASE 19 U/L (12-78); ALBUMIN 2.6 G/DL (3.4-5.0); ALBUMIN/GLOBULIN RATIO 0.7 (1.1-1.5); ALKALINE PHOSPHATASE 81 IU/L (46-116); ANION GAP 8 (8-16); ASPARTATE AMINO TRANSFERASE 18 U/L (10-37); BILIRUBIN,TOTAL 0.5 MG/DL (0.1-1.0); BLOOD UREA NITROGEN 12 MG/DL (7-18); BUN/CREATININE RATIO 3.8 (6.6-38.0); CALCIUM 9.1 MG/DL (8.5-10.1); CHLORIDE 102 MMOL/L (99-107); CREATININE 3.18 MG/DL (0.40-0.90); GLUCOSE 93 MG/DL (70-104); MAGNESIUM 1.8 MG/DL (1.5-2.4); PHOSPHORUS 4.6 MG/DL (2.3-4.5); POTASSIUM 4.2 MMOL/L (3.5-5.1); SODIUM 138 MMOL/L (135-145); TOTAL PROTEIN 6.2 G/DL (6.4-8.2); eGFR 14 ML/MIN
[2019-10-15 06:05] LABS: BASOPHILS # (AUTO) 0.1 X10'3 (0-0.2); EOSINOPHILS # (AUTO) 0.7 X10'3 (0-0.9); EOSINOPHILS % (AUTO) 10.5 % (0-6); HEMATOCRIT 29.8 % (35.0-45.0); HEMOGLOBIN 9.8 g/dl (12.0-16.0); LYMPHOCYTES # (AUTO) 1.1 X10'3 (1.1-4.8); LYMPHOCYTES % (AUTO) 17.2 % (21-51); MEAN CORPUSCULAR HEMOGLOBIN 34.6 PG (27.0-31.0); MEAN CORPUSCULAR HGB CONC 32.8 g/dL (33.0-36.5); MEAN CORPUSCULAR VOLUME 105.4 FL (78-98); MEAN PLATELET VOLUME 6.8 FL (7.4-10.4); MONOCYTES # (AUTO) 0.9 X10'3 (0-0.9); MONOCYTES % (AUTO) 14.9 % (2-12); NEUTROPHILS # (AUTO) 3.6 X10'3 (1.8-7.7); NEUTROPHILS % (AUTO) 56.4 % (42-75); PLATELET COUNT 150 X10'3 (140-440); RED BLOOD COUNT 2.82 X10'6 (4.20-5.60); WHITE BLOOD COUNT 6.3 X10'3 (4.5-11.0)
--- NOTE | 2019-10-15 06:07 | NUR ---
Problems reprioritized. Patient report given, questions answered & plan of care reviewed with Yesenia BOLTON.
--- NOTE | 2019-10-15 06:26 | NUR ---
Patient in room PCU 3022. I have received report from Kasia BOLTON and had the opportunity to ask questions and assume patient care.
[2019-10-15 07:00] VITALS: BP 113/60
[2019-10-15] MEDS: ipratropium/albuterol 3ml nebule NEB SCH ×3 (07:25→15:46)
[2019-10-15] MEDS: furosemide 40mg tablet PO SCH (08:01)
[2019-10-15] MEDS: atorvastatin 20mg tablet PO SCH (08:02)
[2019-10-15] MEDS: metoprolol tartrate 25mg tablet PO SCH (08:02)
[2019-10-15] MEDS: predniSONE 5mg tablet PO SCH (08:02)
[2019-10-15] MEDS: amLODIPine 5mg tablet PO SCH (08:02)
[2019-10-15] MEDS: levoTHYROXINE 100mcg tablet PO SCH (08:02)
[2019-10-15] MEDS ORDERED: tPA-cathflo 2 MG/2 ml IV flush IVF ONE (09:40)
[2019-10-15 11:00] VITALS: BP 122/61
[2019-10-15 15:00] VITALS: BP 125/60
--- NOTE | 2019-10-15 15:28 | NUR ---
Dr. Ansari at bedside with patient. Dr discussed discharge instructions. Patient was very argumentative when adhering to the direction he was given. A low sodium diet of 1 gram and 1.2L of fluid restrictions until her 1 [address] follow up with [address]. Hoyos. Patient expressed the urge to go home and follow up with Rom[facility]. Dr. Ansari is going to order the discharge today. TDC was flushed with TPA 0930 this am. I asked about the order to change catheter in TDC, but Dr. Ansari said that he did not want that, that he only wanted it flushed with TPA. [facility] called and said they would cancel order per our conversation. I called daughterKristine and spoke with her about the doctors orders and she was educated on the diet restriction and follow up as well. Will continue to educate patient and family on discharge.
[2019-10-15] MEDS ORDERED: FURO40TA4 PO (16:34)
--- NOTE | 2019-10-15 17:34 | NUR ---
Patient ok to discharge per MD orders. All discharge instructions and medications were educated to patient and daughter, Kristine. Patient's IV and tele were discontinued and returned. patient was stable for discharged and was instructed to make a follow up with Dr. Hoyos within a week. Patient was educated on diet restrictions and family was also educated. All Patients items were collected and sent with patient. Transportation via a wheelchair escorted by RN student and met in front of lobby by a personal vehicle with as van driver.
--- NOTE | 2019-10-17 10:02 | NUR ---
Case Management DC follow up: spoke to pt spouse, Wandy, via telephone. S/P: SOB, resp distress Reports: "doing okay, sleeping at this time". Denies for pt: acute/worsening cp, acute/worsening SOB or resp distress, vertigo, syncope,weakness, blurry vision, N/V, ORTEGA, emergent general pain, abd tenderness/distension, fever Verbalizes understanding of s/s that warrant 9-11/ER visit for evaluation. pt compliant w/after care instructions. Verbalizes understanding of new Rx and why prescribed, resumes current Rx/taking as ordered, no ase r/t polypharmacy. Acknowledges need to schedule/keep follow up appts w/ PCP/[facility]; [facility] 10/22/19. Needs met, questions answered at DC, no further questions at this time.
== END 2019-10-15 17:25 | disposition home or self-care (01) | DRG 189 ==
LOC: ER 20:54 → ED HOLD 22:12 → PCU 3S 22:56
PROVIDERS: ADMIT Internal Medicine Critical Care Medicine; ATTEND Internal Medicine Critical Care Medicine
PROC: 5A1D70Z Performance of Urinary Filtration, Intermittent, Less than 6 Hours Per Day (ICD-10-PCS; principal; 2019-10-13)
PROC: 5A1D70Z Performance of Urinary Filtration, Intermittent, Less than 6 Hours Per Day (ICD-10-PCS; 2019-10-14)
DX: J96.21 Acute and chronic respiratory failure with hypoxia (principal); N18.6 End stage renal disease; I13.2 Hypertensive heart and chronic kidney disease with heart failure and with stage 5 chronic kidney disease, or end stage renal disease; I50.32 Chronic diastolic (congestive) heart failure; I25.10 Atherosclerotic heart disease of native coronary artery without angina pectoris; J44.9 Chronic obstructive pulmonary disease, unspecified; E11.22 Type 2 diabetes mellitus with diabetic chronic kidney disease; D63.8 Anemia in other chronic diseases classified elsewhere; Z79.4 Long term (current) use of insulin; Z87.891 Personal history of nicotine dependence; Z90.710 Acquired absence of both cervix and uterus; I25.2 Old myocardial infarction; Z86.73 Personal history of transient ischemic attack (TIA), and cerebral infarction without residual deficits; Z99.2 Dependence on renal dialysis; Z87.440 Personal history of urinary (tract) infections; Z88.6 Allergy status to analgesic agent; Z79.891 Long term (current) use of opiate analgesic; Z79.899 Other long term (current) drug therapy; Z98.62 Peripheral vascular angioplasty status; Z88.5 Allergy status to narcotic agent; Z88.0 Allergy status to penicillin; Z88.2 Allergy status to sulfonamides; Z91.041 Radiographic dye allergy status; Z95.1 Presence of aortocoronary bypass graft
CPT/HCPCS: 36415; 71045; 80053; 83735; 83880; 84100; 84443; 84484; 85025; 93005; 93306; 93971; 94640; 94760; 99291; G0378; J1644; J2997; J7512; Q4081

== ENCOUNTER 2019-10-25 19:24 | Emergency (ER) | payer MEDICARE, OTHER ==
[~2019-10-25] VITALS: Ht 160 cm; Wt 65.9 kg
[~2019-10-25 19:24] MED LIST changes: +FURO40TA4 PO; -LEVO500T2 PO; -SODI650T29 PO
[2019-10-25 20:21] LABS: BASOPHILS % (AUTO) 0.7 % (0-1); EOSINOPHILS # (AUTO) 0.6 X10'3 (0-0.9); EOSINOPHILS % (AUTO) 9.7 % (0-6); HEMATOCRIT 31.6 % (35.0-45.0); HEMOGLOBIN 10.4 g/dl (12.0-16.0); LYMPHOCYTES # (AUTO) 1.1 X10'3 (1.1-4.8); LYMPHOCYTES % (AUTO) 16.4 % (21-51); MEAN CORPUSCULAR HEMOGLOBIN 34.9 PG (27.0-31.0); MEAN CORPUSCULAR HGB CONC 32.9 g/dL (33.0-36.5); MEAN CORPUSCULAR VOLUME 105.8 FL (78-98); MEAN PLATELET VOLUME 7.2 FL (7.4-10.4); MONOCYTES # (AUTO) 0.8 X10'3 (0-0.9); MONOCYTES % (AUTO) 11.8 % (2-12); NEUTROPHILS % (AUTO) 61.4 % (42-75); PLATELET COUNT 136 X10'3 (140-440); RED BLOOD COUNT 2.99 X10'6 (4.20-5.60); WHITE BLOOD COUNT 6.5 X10'3 (4.5-11.0)
[2019-10-25 20:26] LABS: ALANINE AMINOTRANSFERASE 21 U/L (12-78); ALBUMIN 2.9 G/DL (3.4-5.0); ALBUMIN/GLOBULIN RATIO 0.8 (1.1-1.5); ALKALINE PHOSPHATASE 79 IU/L (46-116); ANION GAP 3 (8-16); ASPARTATE AMINO TRANSFERASE 22 U/L (10-37); BILIRUBIN,TOTAL 0.6 MG/DL (0.1-1.0); BLOOD UREA NITROGEN 9 MG/DL (7-18); BUN/CREATININE RATIO 4.1 (6.6-38.0); CALCIUM 9.1 MG/DL (8.5-10.1); CHLORIDE 103 MMOL/L (99-107); CREATININE 2.22 MG/DL (0.40-0.90); GLUCOSE 75 MG/DL (70-104); POTASSIUM 4.1 MMOL/L (3.5-5.1); SODIUM 141 MMOL/L (135-145); TOTAL CARBON DIOXIDE 35.1 MMOL/L (24-32); TOTAL PROTEIN 6.6 G/DL (6.4-8.2); eGFR 21 ML/MIN
[2019-10-25 22:14] VITALS: BP 127/69
== END 2019-10-25 22:16 | disposition home or self-care (01) ==
LOC: ER 19:25
DX: R06.02 Shortness of breath (principal); R05 Cough; I25.10 Atherosclerotic heart disease of native coronary artery without angina pectoris; I50.9 Heart failure, unspecified; I25.2 Old myocardial infarction; J44.9 Chronic obstructive pulmonary disease, unspecified; N18.9 Chronic kidney disease, unspecified; Z98.61 Coronary angioplasty status; Z95.1 Presence of aortocoronary bypass graft; Z90.710 Acquired absence of both cervix and uterus; Z98.890 Other specified postprocedural states; Z88.0 Allergy status to penicillin; Z88.2 Allergy status to sulfonamides; Z91.041 Radiographic dye allergy status; Z88.8 Allergy status to other drugs, medicaments and biological substances; Z79.899 Other long term (current) drug therapy
CPT/HCPCS: 36415; 71045; 80053; 83605; 83880; 84484; 85025; 87040; 93005; 99285

== ENCOUNTER 2019-11-29 12:30 | Emergency (ER) | payer MEDICARE, OTHER ==
[~2019-11-29] VITALS: Ht 160 cm; Wt 64.5 kg
[2019-11-29] MEDS ORDERED: morphine 2 MG/ML inj. syringe IV PRN (14:40)
[2019-11-29 14:47] LABS: CLARITY,URINE CLEAR (Clear); COLOR,URINE YELLOW (Yellow); GLUCOSE, URINE NEGATIVE (Neg); KETONES,URINE NEGATIVE (Neg); LEUKOCYTE ESTERASE ,URINE TRACE (Neg); NITRITES, URINE NEGATIVE (Neg); OCCULT BLOOD,URINE TRACE-INTACT (Neg); PH,URINE 8.5 (4.8-8.0); PROTEIN,URINE 30 mg/dl (Neg); UROBILINOGEN,URINE 0.2 E.U/dL (0.2-1.0)
[2019-11-29 14:52] LABS: UA COLLECTION TYPE OTHER
[2019-11-29 14:53] LABS: BACTERIA,URINE 4+ /HPF (Neg); MUCUS STRANDS FEW /LPF (Neg); RBC,URINE 0-2 /HPF (0-2); SQUAMOUS EPITHELIAL CELL,UR NONE SEEN /LPF (FEW); WBC,URINE 0-4 /HPF (0-4)
[2019-11-29 15:05] LABS: BASOPHILS # (AUTO) 0.1 X10'3 (0-0.2); BASOPHILS % (AUTO) 0.5 % (0-1); EOSINOPHILS # (AUTO) 0.3 X10'3 (0-0.9); EOSINOPHILS % (AUTO) 3.2 % (0-6); HEMATOCRIT 31.9 % (35.0-45.0); HEMOGLOBIN 10.4 g/dl (12.0-16.0); LYMPHOCYTES # (AUTO) 0.5 X10'3 (1.1-4.8); LYMPHOCYTES % (AUTO) 5.6 % (21-51); MEAN CORPUSCULAR HEMOGLOBIN 34.9 PG (27.0-31.0); MEAN CORPUSCULAR HGB CONC 32.7 g/dL (33.0-36.5); MEAN CORPUSCULAR VOLUME 106.8 FL (78-98); MEAN PLATELET VOLUME 7.1 FL (7.4-10.4); MONOCYTES # (AUTO) 0.7 X10'3 (0-0.9); MONOCYTES % (AUTO) 7.5 % (2-12); NEUTROPHILS # (AUTO) 8.2 X10'3 (1.8-7.7); NEUTROPHILS % (AUTO) 83.2 % (42-75); PLATELET COUNT 123 X10'3 (140-440); RED BLOOD COUNT 2.98 X10'6 (4.20-5.60); RED CELL DISTRIBUTION WIDTH 15.1 % (11.5-14.5); WHITE BLOOD COUNT 9.8 X10'3 (4.5-11.0)
[2019-11-29 15:19] LABS: ALANINE AMINOTRANSFERASE 25 U/L (12-78); ALBUMIN 3.3 G/DL (3.4-5.0); ALBUMIN/GLOBULIN RATIO 0.9 (1.1-1.5); ALKALINE PHOSPHATASE 76 IU/L (46-116); ANION GAP 8 (8-16); ASPARTATE AMINO TRANSFERASE 24 U/L (10-37); BILIRUBIN,TOTAL 0.6 MG/DL (0.1-1.0); BLOOD UREA NITROGEN 35 MG/DL (7-18); BUN/CREATININE RATIO 6.9 (6.6-38.0); CHLORIDE 98 MMOL/L (99-107); CREATININE 5.04 MG/DL (0.40-0.90); GLUCOSE 85 MG/DL (70-104); POTASSIUM 4.3 MMOL/L (3.5-5.1); SODIUM 135 MMOL/L (135-145); TOTAL CARBON DIOXIDE 28.6 MMOL/L (24-32); eGFR 8 ML/MIN
[2019-11-29] MEDS ORDERED: morphine 2 MG/ML inj. syringe IM ONE (15:50)
[2019-11-29] MEDS ORDERED: NITR100C6 PO (15:55)
[2019-11-29 16:01] VITALS: BP 137/75
== END 2019-11-29 16:18 | disposition home or self-care (01) ==
LOC: ER 12:31
DX: M54.5 Low back pain (principal); N39.0 Urinary tract infection, site not specified; M19.90 Unspecified osteoarthritis, unspecified site; I25.10 Atherosclerotic heart disease of native coronary artery without angina pectoris; I50.9 Heart failure, unspecified; I25.2 Old myocardial infarction; J44.9 Chronic obstructive pulmonary disease, unspecified; N18.9 Chronic kidney disease, unspecified; Z85.9 Personal history of malignant neoplasm, unspecified; Z98.61 Coronary angioplasty status; Z90.710 Acquired absence of both cervix and uterus; Z95.1 Presence of aortocoronary bypass graft; Z98.890 Other specified postprocedural states; Z88.2 Allergy status to sulfonamides; Z88.5 Allergy status to narcotic agent; Z88.8 Allergy status to other drugs, medicaments and biological substances; Z79.899 Other long term (current) drug therapy
CPT/HCPCS: 36415; 80053; 81001; 85025; 87077; 87088; 87186; 96372; 99284; J2270